=== PATIENT | female | born 1985 | race African-American/Black ===

== ENCOUNTER 2022-12-17 22:39 | Emergency (ER) | payer OTHER, SELFPAY ==
--- NOTE | ~2022-12-17 | XR_ITS ---
EXAMINATION: XR ankle LT min 3V DATE: 12/17/2022 23:23 INDICATION: Left ankle pain TECHNIQUE: Anteroposterior, lateral, mortise, and additional oblique view of the ankle were obtained. COMPARISON: None. FINDINGS: There is diffuse soft tissue swelling of ankle. Bone alignment is normal. There is no fract ure. Posterior and plantar calcaneal enthesophytes are noted. IMPRESSION: 1. Ankle soft tissue swelling without acute osseous abnormality. Reviewed, dictated and finalized at location A.
[2022-12-17 22:42] VITALS: BP 132/64; PULSE 85; RESP 14; TEMP 36.2; O2SAT 100
--- NOTE | 2022-12-17 22:59 | PC.NURSE ---
Pt resting comfortably in bed, denies any difficulty breathing or swallowing. Respirations even and unlabored. 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
--- NOTE | 2022-12-17 23:17 | ED.GENADULT ---
HPI - General Adult General Chief complaint: Allergic Reaction Stated complaint: allergic reaction Time Seen by Provider: 12/17/22 23:00 History of Present Illness HPI narrative: Patient 37-year-old female who presents the emergency department with chief complaint of allergic reaction and left ankle pain. Patient reports that recently she twisted her left ankle and has been continuing to have pain in the left ankle area. Patient reports that she is also had intermittent episodes of urticaria and this evening noticed that she started having swelling in her tongue after she fell asleep. Patient reports that she thinks her voice is a little off primarily because of the swelling in her tongue but reports she still able to swallow and has no shortness of breath. Related Data Allergies Allergy/AdvReac Type Severity Reaction Status Date / Time No Known Allergies Allergy Verified 12/17/22 22:40 Review of Systems Review of Systems: A 10 system review of systems was completed on the patient and is negative except for what is stated in the HPI. Nursing and ancillary documentation was reviewed. Exam Narrative: GENERAL: Well-appearing, well-nourished, and in no acute distress. HEAD: Normocephalic, atraumatic. EYES: PERRLA and EOMI. ENT: Nares clear, no rhinorrhea or epistaxis. Mucous membranes moist.no stridor NECK: Supple. CHEST: Clear to auscultation. No respiratory distress. HEART: Regular rate and rhythm. No murmur heard. Normal peripheral pulses. ABDOMEN: Soft, nontender, nondistended, normal active bowel sounds. EXTREMITIES: Normal range of motion. No edema. Tenderness to palpation of the left ankle SKIN: Warm, dry, no rash. NEURO: No focal deficits. Alert and oriented x3. PSYCH: Normal mood and affect. Course Vital Signs Vital signs: Vital Signs Temperature 36.2 C L 12/17/22 22:42 Pulse Rate 85 12/17/22 22:42 Respiratory Rate 14 12/17/22 22:42 Blood Pressure 132/64 12/17/22 22:42 Pulse Oximetry 100 12/17/22 22:42 Oxygen Delivery Room Air 12/17/22 22:42 Temperature 36.2 C L 12/17/22 22:42 Pulse Rate 85 12/17/22 22:42 Respiratory Rate 14 12/17/22 22:42 Blood Pressure 132/64 12/17/22 22:42 Pulse Oximetry 100 12/17/22 22:42 Oxygen Delivery Room Air 12/17/22 22:42 Medical Decision Making MDM Narrative Medical decision making narrative: Differential diagnosis includes allergic reaction, angioedema, ankle sprain. Plain film x-rays of the left ankle show no evidence of fracture The patient was treated with steroids Benadryl and Pepcid the patient will be put on a steroid pulse Vital Signs Vital Signs: Vital Signs Temperature 36.2 C L 12/17/22 22:42 Pulse Rate 85 12/17/22 22:42 Respiratory Rate 14 12/17/22 22:42 Blood Pressure 132/64 12/17/22 22:42 Pulse Oximetry 100 12/17/22 22:42 Oxygen Delivery Room Air 12/17/22 22:42 Temperature 36.2 C L 12/17/22 22:42 Pulse Rate 85 12/17/22 22:42 Respiratory Rate 14 12/17/22 22:42 Blood Pressure 132/64 12/17/22 22:42 Pulse Oximetry 100 12/17/22 22:42 Oxygen Delivery Room Air 12/17/22 22:42 Discharge Plan Discharge Clinical Impression: Allergic reaction, Left ankle sprain Patient Disposition: Home, Self-Care Condition: Stable Instructions: Antibiotic Form, Ankle Sprain (ED), Allergies (ED), General Allergic Reaction (ED) Prescriptions: New prednisone 20 mg tablet 40 mg PO DAILY 5 Days Qty: 10 0RF Follow-up/Referrals: Miky,JATINDER Kerns [Primary Care Provider] - Time of Disposition: 23:45
[2022-12-17] MEDS: predniSONE 20 MG TABLET 60 MG PO (23:24)
[2022-12-17] MEDS: diphenhydrAMINE HCl CAP 25 MG CAPSULE 50 MG PO (23:24)
[2022-12-17 23:59] VITALS: BP 112/69; PULSE 69; RESP 18; TEMP 36.6; O2SAT 99
== END 2022-12-18 | disposition home or self-care (01) ==
PROVIDERS: Emergency Provider Emergency Medicine; PCP Physician Assistant
DX: S93.402A Sprain of unspecified ligament of left ankle, initial encounter (principal); X50.0XXA Overexertion from strenuous movement or load, initial encounter; T78.40XA Allergy, unspecified, initial encounter; X58.XXXA Exposure to other specified factors, initial encounter
CPT/HCPCS: 73610; 99283; A9270; J7512

== ENCOUNTER 2025-09-03 05:55 | Emergency (ER) | payer OTHER, SELFPAY ==
--- OUTSIDE RECORDS SUMMARY | 2025-01-04 13:40 | XMS_ITS ---
Author Organization [facility] Address [address] [place] [address] Phone [phone] Care Team Providers Care Fireman Name Role Phone Jacqui Deluca Primary Care Provider [phone] Marifer KISERChristophemonica Abarca [phone] REASON FOR VISIT 3 Month Psych F/U & Med Refill Medications Medication SIG (Take, Route, Frequency, Duration) Notes Start Date End Date Diagnosis (ICD Code) Status hydrOXYzine HCl 50 MG Tablet 1/2 to 1 tablet as needed Orally twice a day; Duration: 30 days 08/31/2024 Bipolar affective disorder, depressed, severe, with psychotic behavior (ICD_10 - F31.5) Active Vraylar 1.5 MG Capsule 1 capsule Orally Once a day; Duration: 30 days Has been on Latuda, Abilify, Geodon, Zyprexa, Seroquel, Risperdal, Haldol. 08/30/2024 Bipolar affective disorder, depressed, severe, with psychotic behavior (ICD_10 - F31.5) Active traZODone HCl 100 MG Tablet 1/2 to 1 tablet at bedtime as needed Orally Once a day; Duration: 30 days Bipolar affective disorder, depressed, severe, with psychotic behavior (ICD_10 - F31.5) Active FLUoxetine HCl 40 MG Capsule 1 capsule Oral Once a day; Duration: 30 days Bipolar affective disorder, depressed, severe, with psychotic behavior (ICD_10 - F31.5) Active Vitamin D (Ergocalciferol) 1.25 MG (12855 UT) Capsule 1 capsule Oral once a week; Duration: 30 days Bipolar affective disorder, depressed, severe, with psychotic behavior (ICD_10 - F31.5) Active Meclizine HCl 25 MG Tablet Oral; Duration: 10 Days Active Fluticasone Propionate 50 MCG/ACT Suspension Nasal; Duration: 30 Days Active Sucralfate 1 GM Tablet Oral; Duration: 30 Days Active Pantoprazole Sodium 40 MG Tablet Delayed Release Oral; Duration: 28 Days Active Folic Acid 1 MG Tablet Oral; Duration: 28 Days Active amLODIPine Besylate 2.5 MG Tablet Oral; Duration: 28 Days Active Cetirizine HCl 10 MG Tablet Oral; Duration: 28 Days Active Amoxicillin 875 MG Tablet Oral; Duration: 10 Days Active Social History Sex Observation Social History Observation Description Sex Observation Female Encounters Date Time Type Facility Location Provider Diagnosis 01/04/2025 01:40 PM Office Visit [address] [address] Jacqui Deluca Bipolar affective disorder, depressed, severe, with psychotic behavior F31.5 Assessments Encounter Date Diagnosis (ICD Code) Assessment Notes Treat ment Notes Section Notes 01/04/2025 Bipolar affective disorder, depressed, severe, with psychotic behavior (ICD-10 - F31.5) Plan Of Treatment No Information Medical (General) History Medical History History ICD Code asthma Hemoglobin C (Blood disorder) GERD Hypertension Obesity Fatty liver Enlarged spleen Vertigo Surgical History Surgery Date(Month/Year) cholecystectomy 2024 Progress Notes * Franklin REYNOSODOB:[birth year] (40 yo F)Acc No.[id number]:01/04/2025 UNLOCKED PROGRESS NOTE Patient: Osorio CHANCE Franklin Provider: Liz Deluca DNP, PMHNP-BC, [employer] PERFORMER :1985 A ge:39 Y S ex:Female Date:01/04/2025 Address:[address] [place] [address] , [address] Subjective: * Chief Complaints: * 1 . 3 Month Psych F/U & Med Refill. * Screening: * * Medical History: * Medications: T aking Amoxicillin 875 MG Tablet Oral , Taking Cetirizine HCl 10 MG Tablet Oral , Taking amLODIPine Besylate 2.5 MG Tablet Oral , Taking Folic Acid 1 MG Tablet Oral , Taking Pantoprazole Sodium 40 MG Tablet Delayed Release Oral , Taking Sucralfate 1 GM Tablet Oral , Taking Fluticasone Propionate 50 MCG/ACT Suspension Nasal , Taking Meclizine HCl 25 MG Tablet Oral , Taking Vitamin D (Ergocalciferol) 1.25 MG (92939 UT) Capsule 1 capsule Oral once a week , Taking FLUoxetine HCl 40 MG Capsule 1 capsule Oral Once a day , Taking traZODone HCl 100 MG Tablet 1/2 to 1 tablet at bedtime as needed Orally Once a day , Taking Vraylar 1.5 MG Capsule 1 capsule Orally Once a day , Notes to Pharmacist: Has been on Latuda, Abilify, Geodon, Zyprexa, Seroquel, Risperdal, Haldol., Taking hydrOXYzine HCl 50 MG Tablet 1/2 to 1 tablet as needed Orally twice a day Objective: * Vitals: Assessment: * Assessment: 1. B ipolar affective disorder, depressed, severe, with psychotic behavior - F31.5 (Primary)? Plan: * Treatment: * * Electronic signature of Leticia Deluca on 09/03/2025 at 05:58 AM DATA ENTRY ASSISTANT Sign off status: Pending * Provider: Liz Deluca DNP, PMHNP-JONAH, TAMIA Date: 0 01/04/2025 Generated for Printing/Faxing/eTransmitting on: 11/04/2024 05:58 AM DATA ENTRY ASSISTANT
--- NOTE | ~2025-09-03 | XR_ITS ---
Examination: XR chest 2V Clinical History: shortness of breath, CP Comparison: None Technique: PA and Lateral Findings: Cardiomediastinal silhouette normal size and configuration. Lungs clear. No acute bony abnormality. IMPRESSION: 1. No acute cardiopulmonary findings. Reviewed, dictated and finalized at location R. Y LEVEL WEB DEVELOPER
--- NOTE | ~2025-09-03 | CT_ITS ---
CT HEAD NON-CONTRAST Clinical History: intractable new headache Comparison: None Technique: Unenhanced axial images skull base to vertex Coronal, sagittal reformats CT images acquired with automatic exposure control for dose reduction DLP: 605 mGy-cm Findings: Sulci, ventricles: Unremarkable. No intracerebral hemorrhage. No evidence acute territorial infarct. No mass effect, midline shift. Bony calvarium intact. Visualized paranasal sinuses: Clear. Mastoid air cells: Clear. IMPRESSION: 1. No acute intracranial findings. Reviewed, dictated and finalized at location R. E ADJUSTER
--- OUTSIDE RECORDS SUMMARY | 2025-09-03 02:00 | XMS_ITS | Encounter Summary ---
Author Organization [facility] Healthcare Address [address] [place] [address] Care Team Providers Care Stonemason Supervisor Name Role Phone Azul Bolaños Primary Care Provider Reason for Visit * Reason Comments Paranoia Encounter Details Date Type Department Care Team (Late st Contact Info) Description 09/03/2025 2:00 AM PROTOTYPE MACHINIST - 09/03/2025 3:32 AM PROTOTYPE MACHINIST Emergency [facility] Emergency Department [address] [place] [address] Feliciano Francois MD [address] [place] [address] Hallucinations (Primary Dx); Paranoia (HCC) Discharge Disposition: Discharge to home or self care Social History Tobacco Use Types Packs/Day Years Used Date Smoking Tobacco: Former Cigarettes Vaping Smokeless Tobacco: Never AUDIT-C Answer Date Recorded Frequency of Alcohol Consumption Not on file 10/01/2022 Q2: How many drinks containi ng alcohol do you have on a typical day when you are drinking? Patient does not drink Frequency of Binge Drinking Not on file 02/2023 Personal Safety Answer Date Recorded Have you ever been in or are you currently in a harmful physical or emotional relationship or is someone making you feel afraid or unsafe? Denies 09/03/2025 Comments No Sex and Gender Information Value Date Recorded Sex Assigned at Not on file Legal Sex Female 3:32 AM PROTOTYPE MACHINIST Gender Identity Not on file Sexual Orientation Not on file documented as of this encounter Last Filed Vital Signs Vital Sign Reading Time Taken Comments Blood Pressure 146/72 09/03/2025 3:32 AM PROTOTYPE MACHINIST Pulse 62 09/03/2025 3:32 AM PROTOTYPE MACHINIST Temperature 36.6 C (97.8 F) 09/03/2025 12:03 AM PROTOTYPE MACHINIST Respiratory Rate 20 09/03/2025 12:02 AM PROTOTYPE MACHINIST Oxygen Saturation 99% 09/03/2025 3:32 AM PROTOTYPE MACHINIST Inhaled Oxygen Concentration - - Weight 111.1 kg (245 lb) 09/03/2025 12:02 AM PROTOTYPE MACHINIST Height 165.1 cm (5' 5) 09/03/2025 12:02 AM PROTOTYPE MACHINIST Body Mass Index 40.77 09/03/2025 12:02 AM PROTOTYPE MACHINIST documented in this encounter Functional Status * Question Answer Date of Assessment Author Is the patient being treated today because it is known or suspected that they prepared, started, or tried to end their life? No 09/03/2025 12:02 AM Sree Verde RN * Question Answer Date of Assessment Author 1. In the past month, have you wished you were or that you could go to sleep and not wake up? No 09/03/2025 12:02 AM Sree Verde RN 2. In the past month, have you actually had any thoughts of killing yourself? No 09/03/2025 12:02 AM Sree Verde RN 6. Have you ever done anything, started to do anything, or prepared to do anything to end your life? No 09/03/2025 12:02 AM Ana Paula Flores RN * Suicide Risk Level Answer Date of Assessment Author No risk level 09/03/2025 12:02 AM Ana Paula Leslie RN * Question Answer Date of Assessment Author MAP (mmHg) 104 09/03/2025 12:02 AM PROTOTYPE MACHINIST Ana Paula Laboy RN documented as of this encounter Mental Status * Question Answer Entry Date Author Level of Consciousness Alert 12:20 AM Ana Paula Verde RN Orientation Oriented X4 (person, place, time, situation) 09/03/2025 12:20 AM Ana Paula Verde RN Other Neuro Symptoms Hallucinations 09/03/2025 12:20 AM PROTOTYPE MACHINIST Ana Paula Vuong RN documented in this encounter Discharge Instructions * Discharge Instructions* Feliciano Francois MD - 09/03/2025 3:28 AM PROTOTYPE MACHINIST Follow up with your psychiatrist. OTYPE MACHINIST * Attachments The following attachments cannot be sent through Care Everywhere. * Hallucinations (Discharge Care) (Tajik) documented in this encounter Medications at Time of Discharge albuterol HFA (PROVENTIL HFA,VENTOLIN HFA,PROAIR HFA) 90 mcg/actuation inhaler 09/13/2022 albuterol HFA (PROVENTIL HFA,VENTOLIN HFA,PROAIR HFA) 90 mcg/actuation inhaler Inhale 2 puffs every 4 (four) hours as needed 09/13/2022 amLODIPine (NORVASC) 5 mg tablet 08/25/2022 cetirizine (ZyrTEC) 10 mg tablet Take 1 tablet (10 mg total) by mouth daily 01/04/[address] (NexIUM) 40 mg capsule Take 1 capsule (40 mg total) by mouth daily before breakfast 30 capsule 03/06/2025 Flovent HFA 110 mcg/actuation inhaler 09/22/2022 FLUoxetine 10 mg capsule Take 1 tablet/capsule (10 mg total) by mouth daily 09/21/2023 folic acid (FOLVITE) 1 mg tablet Take 1,000 mcg by mouth daily 08/06/2021 LORazepam (ATIVAN) 0.5 mg tabletIndication s:Insomnia,anxie ty Take 1 tablet (0.5 mg total) by mouth every 6 (six) hours as needed for anxiety 20 tablet 10/06/2023 meclizine (ANTIVERT) 25 mg tablet Take 1 tablet (25 mg total) by mouth 3 (three) times a day as needed 08/16/[address] (PROTONIX) 40 mg EC tablet Take 1 tablet (40 mg total) by mouth 2 (two) times a day 05/04/2023 valACYclovir (VALTREX) 500 mg tablet 08/25/2022 documented as of this encounter Discharge Disposition Disposition Code Departure Means Destination Comment s Discharge to home or self care documented in this encounter ED Notes * Xochilt Colin PA - 09/03/2025 1:36 AM CST CHIEF COMPLAINT: Chief Complaint Patient presents with Paranoia HPI 2:09 AM Flaca Reynoso is a 40 y.o. female presenting to the ED c/o paranoia and hallucinations.Patient states she was recently started on new medication for treatment of her narcolepsy and has been experiencing auditory and visual hallucinations and paranoia. She was at secondary to these medications. Patient is fearful that he is voices or seeing negative things about herself. She denies homicidal or suicidal ideation. Patient also reports having intermittent left- sided chest pain for a couple of weeks. She reports an associated cough and intermittent shortness of breath with wheezing. She denies any shortness of breath at this time. She denies lower extremity edema. She denies any all eviating or exacerbating factors. History provided by patient PCP: Azul Bolaños PA PAST MEDICAL HISTORY Past Medical History: Diagnosis Date Anemia 2003 Anxiety 2004 Arthritis 2010 Bipolar disorder (HCC) 2004 Depression 2004 GERD (gastroesophageal reflux disease) 2010 Hypertension 2016 Low back pain 2017 Obesity 2005 Paranoid schizophrenia (HCC) PAST SURGICAL HISTORY Past Surgical History: Procedure Laterality Date SECTION COLONOSCOPY 2007 FAMILY HISTORY Family History Problem Relation Age of Onset COPD Mother Diabetes Mother Heart attack Mother Hypertension Mother Stroke Mother Alcohol abuse Father Mental illness Father MEDICATIONS GIVEN IN THE ED Medications - No data to display CURRENT HOME MEDICATIONS No current facility-administered medications for this encounter. Current Outpatient Medications: albuterol HFA (PROVENTIL HFA,VENTOLIN HFA,PROAIR HFA) 90 mcg/actuation inhaler, , Disp: , Rfl: albuterol HFA (PROVENTIL HFA,VENTOLIN HFA,PROAIR HFA) 90 mcg/actuation inhaler, Inhale 2 puffs every 4 (four) hours as needed, Disp: , Rfl: amLODIPine (NORVASC) 5 mg tablet, , Disp: , Rfl: cetirizine (ZyrTEC) 10 mg tablet, Take 1 tablet (10 mg total) by mouth daily, Disp: , Rfl: esomeprazole DR (NexIUM) 40 mg capsule, Take 1 capsule (40 mg total) by mouth daily before breakfast, Disp: 30 capsule, Rfl: 0 Flovent HFA 110 mcg/actuation inhaler, , Disp: , Rfl: FLUoxetine 10 mg capsule, Take 1 tablet/capsule (10 mg total) by mouth daily, Disp: , Rfl: folic acid (FOLVITE) 1 mg tablet, Take 1,000 mcg by mouth daily, Disp: , Rfl: LORazepam (ATIVAN) 0.5 mg tablet, Take 1 tablet (0.5 mg total) by mouth every 6 (six) hours as needed for anxiety, Disp: 20 tablet, Rfl: 0 meclizine (ANTIVERT) 25 mg tablet, Take 1 tablet (25 mg total) by mouth 3 (three) times a day as needed, Disp: , Rfl: pantoprazole DR (PROTONIX) 40 mg EC tablet, Take 1 tablet (40 mg total) by mouth 2 (two) times a day, Disp: , Rfl: valACYclovir (VALTREX) 500 mg tablet, , Disp: , Rfl: ALLERGIES Allergies Allergen Reactions Doxepin Hallucinations SI Aripiprazole Dizziness, Other (See comments) and Unknown Headache SOCIAL HISTORY Social History Tobacco Use Smoking status: Former Types: Cigarettes, Vaping Smokeless tobacco: Never Substance and Sexual Activity Drug use: Never Sexual activity: Not Currently Partners: Male control/protection: Abstinence, Condom Male Alcohol Use: Not At Risk (05/16/2025) Received from [facility] AUDIT-C Q1: How often do you have a drink containing alcohol?: Never Q2: How many drinks containing alcohol do you have on a typical day when you are drinking?: Patientdoes not drink Q3: How often do you have six or more drinks on one occasion?: Never PHYSICAL EXAM TRIAGE VITAL SIGNS: ED Triage Vitals Temp Pulse Resp BP SpO2 09/03/25 0003 09/03/25 0002 09/03/25 0002 09/03/25 0002 09/03/25 0002 36.6 ??C (97.8 ??F) 76 20 158/91 99 % Temp src Heart Rate Source Patient Position BP Location FiO2 (%) 09/03/25 0003 -- -- -- -- Temporal Height Height Method Weight Weight Method 09/03/25 0002 09/03/25 0002 09/03/25 0002 09/03/25 0002 1.651 m (5' 5) Estimated 111.1 kg (245 lb) Stated Physical Exam Vitals and nursing note reviewed. Constitutional: General: She is not in acute distress. Appearance: She is well-developed. HENT: Head: Normocephalic and atraumatic. Right Ear: External ear normal. Left Ear: External ear normal. Nose: Nose normal. Mouth/Throat: Mouth: Mucous membranes are moist. Eyes: Conjunctiva/sclera: Conjunctivae normal. Cardiovascular: Rate and Rhythm: Normal rate and regular rhythm. Pulmonary: Effort: Pulmonary effort is normal. No respiratory distress. Breath sounds: Normal breath sounds. Chest: Chest wall: Tenderness present. Musculoskeletal: General: Normal range of motion. Cervical back: Neck supple. Skin: General: Skin is warm and dry. Neurological: General: No focal deficit present. Mental Status: She is alert. Psychiatric: Mood and Affect: Mood normal. Behavior: Behavior normal. LABS Labs Reviewed CBC WITH AUTO DIFFERENTIAL - Abnormal Result Value WBC 8.66 Hgb 10.3 (*) Hct 28.9 (*) Plt 205 MPV 10.6 RBC 3.92 MCV 73.7 (*) MCH 26.3 (*) MCHC 35.6 RDW CV 17.1 (*) RDW SD 45.2 NRBC abs 0.03 (*) COMPREHENSIVE METABOLIC PANEL - Abnormal Sodium 138 Potassium, pl 3.2 (*) Chloride 102 CO2 26 Anion gap 10 BUN 9 Creatinine 0.79 Glucose 98 Calcium 9.2 Bilirubin, total 1.8 (*) Protein, pl 8.2 Albumin 4.4 Alk phos 107 ALT 22 AST 19 INFLUENZA A/B, RSV, AND COVID-19 PCR COVID-19 RNA Negative Influenza A RNA Negative Influenza B RNA Negative RSV RNA Negative Narrative: Is the Patient experiencing symptoms consistent with COVID?->Yes URINALYSIS AND REFLEX TO MICROSCOPIC AND CULTURE Color, ur Yellow Clarity, ur Clear Specific gravity, ur 1.009 pH, urine 6.0 Protein, ur ql Negative Glucose, ur ql Negative Ketones, ur Negative Bilirubin, ur Negative Blood, ur Negative Urobilinogen, ur <2.0 Nitrite, ur Negative Leukocyte esterase, ur Negative UA reflex comment Value: Reflex conditions for microscopic UA and culture not met. ACETAMINOPHEN LEVEL Acetaminophen <5 ETHANOL Ethanol <10 SALICYLATE LEVEL Salicylate <5.0 TROPONIN T HIGH-SENSITIVITY SERIES (BASELINE, 2HR, 4HR, 6HR) Trop T hs <6 DRUGS OF ABUSE SCREEN, URINE WITHOUT CONFIRMATION Amphetamine, ur Not Detected Barbiturates, ur Not Detected Benzodiazepines, ur Not Detected Cannabinoids, ur Not Detected Cocaine, ur Not Detected Fentanyl, Ur Not Detected Methadone, ur Not Detected Opiates, ur Not Detected Oxycodone, ur NOT DETECTED Phencyclidine, ur Not Detected Urine Creatinine 70 Narrative: Drug of Abuse screening is performed by immunoassay for medical purposes only. This is not to be used for Pain Management purposes. HCG, URINE, QUALITATIVE HCG, ur Negative THYROID FUNCTION CASCADE TSH 4.19 DIFFERENTIAL AUTO Neutrophil abs 4.96 Imm gran abs 0.02 Lymphocyte abs 3.09 Monocyte abs 0.53 Eosinophil abs 0.03 Basophil abs 0.03 Neutrophil pct 57.4 Imm gran pct 0.2 Lymphocyte pct 35.7 Monocyte pct 6.1 Eosinophil pct 0.3 Basophil pct 0.3 EGFR eGFR >90 RADIOLOGY No results found. ED COURSE/MEDICAL DECISION MAKING Differential diagnosis included but not limited to medication reaction, psychosis, paranoid schizophrenia, bipolar Patient's medical records were reviewed. ED Course as of 09/03/25208 Time: 09/03 125 Value: Hgb(!): 10.3 Comment: Chronic anemia By: Xochilt Colin PA Time: 09/03 202 Comment: Patient is medically clear for psychiatric evaluation By: Xochilt Colin PA Procedures FINAL IMPRESSION Hallucinations Paranoia (HCC) This examination was transcribed using the [employer] voice recognition system without human bank compliance officer. In an effort to expedite patient care, this report has not been adjusted for typographical, grammatical, and syntax by a trained medical office supervisor. Xochilt Colin PA 09/03/25 0209 OTYPE MACHINIST * Ana Paula Vuong RN - 09/03/2025 12:00 AM CST Pt arrives by EMS to triage for complaints of anxiety, paranoia, and feeling off since starting anew med for her Narcolepsy in July. Pt states she has auditory hallucinations for the last 5 days. Denies SI or HI OTYPE MACHINIST OTYPE MACHINIST documented in this encounter Miscellaneous Notes * ED Re-evaluation Note - Feliciano Francois MD - 09/03/2025 3:29 AM PROTOTYPE MACHINIST ED Re-evaluation Patient feeling better and does not want to wait for psych evaluation. She denies any suicidal or homicidal tendencies. Labs Reviewed CBC WITH AUTO DIFFERENTIAL - Abnormal Result Value WBC 8.66 Hgb 10.3 (*) Hct 28.9 (*) Plt 205 MPV 10.6 RBC 3.92 MCV 73.7 (*) MCH 26.3 (*) MCHC 35.6 RDW CV 17.1 (*) RDW SD 45.2 NRBC abs 0.03 (*) COMPREHENSIVE METABOLIC PANEL - Abnormal Sodium 138 Potassium, pl 3.2 (*) Chloride 102 CO2 26 Anion gap 10 BUN 9 Creatinine 0.79 Glucose 98 Calcium 9.2 Bilirubin, total 1.8 (*) Protein, pl 8.2 Albumin 4.4 Alk phos 107 ALT 22 AST 19 INFLUENZA A/B, RSV, AND COVID-19 PCR COVID-19 RNA Negative Influenza A RNA Negative Influenza B RNA Negative RSV RNA Negative Narrative: Is the Patient experiencing symptoms consistent with COVID?->Yes URINALYSIS AND REFLEX TO MICROSCOPIC AND CULTURE Color, ur Yellow Clarity, ur Clear Specific gravity, ur 1.009 pH, urine 6.0 Protein, ur ql Negative Glucose, ur ql Negative Ketones, ur Negative Bilirubin, ur Negative Blood, ur Negative Urobilinogen, ur <2.0 Nitrite, ur Negative Leukocyte esterase, ur Negative UA reflex comment Value: Reflex conditions for microscopic UA and culture not met. ACETAMINOPHEN LEVEL Acetaminophen <5 ETHANOL Ethanol <10 SALICYLATE LEVEL Salicylate <5.0 TROPONIN T HIGH-SENSITIVITY SERIES (BASELINE, 2HR, 4HR, 6HR) Trop T hs <6 DRUGS OF ABUSE SCREEN, URINE WITHOUT CONFIRMATION Amphetamine, ur Not Detected Barbiturates, ur Not Detected Benzodiazepines, ur Not Detected Cannabinoids, ur Not Detected Cocaine, ur Not Detected Fentanyl, Ur Not Detected Methadone, ur Not Detected Opiates, ur Not Detected Oxycodone, ur NOT DETECTED Phencyclidine, ur Not Detected Urine Creatinine 70 Narrative: Drug of Abuse screening is performed by immunoassay for medical purposes only. This is not to be used for Pain Management purposes. HCG, URINE, QUALITATIVE HCG, ur Negative THYROID FUNCTION CASCADE TSH 4.19 DIFFERENTIAL AUTO Neutrophil abs 4.96 Imm gran abs 0.02 Lymphocyte abs 3.09 Monocyte abs 0.53 Eosinophil abs 0.03 Basophil abs 0.03 Neutrophil pct 57.4 Imm gran pct 0.2 Lymphocyte pct 35.7 Monocyte pct 6.1 Eosinophil pct 0.3 Basophil pct 0.3 EGFR eGFR >90 Feliciano Francois MD 09/03/25 0329 OTYPE MACHINIST * ED Procedure Note - Feliciano Francois MD - 09/03/2025 12:12 AM CSTAssociated Order(s): ECG 12 lead Procedure ECG 12 lead Date/Time: 09/03/2025 12:12 AM Performed by: Feliciano Francois MD Authorized by: Feliciano Francois MD Rate: ECG rate: 64 ECG rate assessment: normal Rhythm: Rhythm: sinus rhythm Other findings: Other findings: LVH Interpretation: Interpretation: abnormal Comments: First-degree AV block Feliciano Francois MD 09/03/25 0012 OTYPE MACHINIST documented in this encounter Plan of Treatment Pending Results Name Type Priority Associated Diagnoses Date /Time ECG 12 lead ECG STAT 09/03/2025 12 :12 AM PROTOTYPE MACHINIST XR Chest 1 [facility] ED 1:26 AM PROTOTYPE MACHINIST Scheduled Orders Name Type Priority Associated Diagnoses Orde r Schedule XR Chest 1 Vw Portable Imaging ED On ce for 1 Occurrences starting 09/03/2025 until 09/03/2025 documented as of this encounter Procedures Procedure Name Priority Date/Time Associated Diagnosis Comments TROPONIN T HIGH-SENSITIVITY SERIES (BASELINE, 2HR, 4HR, 6HR) STAT 09/03/2025 12:26 AM PROTOTYPE MACHINIST INFLUENZA A/B, RSV, AND COVID-19 PCR STAT 09/03/2025 12:26 AM PROTOTYPE MACHINIST EGFR STAT 09/03/2025 12:26 AM PROTOTYPE MACHINIST DIFFERENTIAL AUTO STAT 09/03/2025 12: 26 AM PROTOTYPE MACHINIST THYROID FUNCTION CASCADE Add-On 09/03/2025 12:26 AM PROTOTYPE MACHINIST URINALYSIS AND REFLEX TO MICROSCOPIC AND CULTURE STAT 09/03/2025 12:26 AM PROTOTYPE MACHINIST CBC WITH AUTO DIFFERENTIAL STAT 09/03/2025 12:26 AM PROTOTYPE MACHINIST DRUGS OF ABUSE SCREEN, URINE WITHOUT CONFIRMATION STAT 09/03/2025 12:26 AM PROTOTYPE MACHINIST HCG, URINE, QUALITATIVE STAT 09/03/2025 12:26 AM PROTOTYPE MACHINIST ETHANOL STAT 09/03/2025 12:26 AM PROTOTYPE MACHINIST ACETAMINOPHEN LEVEL STAT 09/03/2025 1 2:26 AM PROTOTYPE MACHINIST SALICYLATE LEVEL STAT 09/03/2025 12:2 6 AM PROTOTYPE MACHINIST COMPREHENSIVE METABOLIC PANEL STAT 09/03/2025 12:26 AM PROTOTYPE MACHINIST ECG 12-LEAD STAT 09/03/2025 12:12 AM PROTOTYPE MACHINIST documented in this encounter Results * eGFR (09/03/2025 12:26 AM PROTOTYPE MACHINIST) eGFR >90 >=60 mL/min/1. 73 m2 Comment: Interpretive Data Reference Interval Normal >/= 90 mL/min/1.73m2 Mildly decreased* 60 - 89 mL/min/1.73m2 Mildly to moderately decreased 45 - 59 mL/min/1.73m2 Moderately to severely decreased 30 - 44 mL/min/1.73m2 Severely decreased 15 - 29 mL/min/1.73m2 Kidney Failure < 15 mL/min/1.73m2 *Relative to young adult level Estimated glomerular filtration rate is determined by the 2020 CKD-EPI equation recommended by the National Kidney Foundation (A Unifying Approach to GFR Estimation: Recommendations of the NKF-ASK Task Force on Reassessing the Inclusion of Race in Diagnosing Kidney Disease, JASN 2020). The CKD-EPI equation should not be used for patients with unstable renal function and has not been validated in children and those over 70. Current interpretive data was last reviewed 2021. Blood 09/03/2025 12:2 6 AM PROTOTYPE MACHINIST 09/03/2025 12:34 AM PROTOTYPE MACHINIST us Xochilt TOBIAS LAB BLOOD ORDERABLES Tiki paz Result [facility] ([place]) 1 [facility] Department [place] [address] * Differential, auto (09/03/2025 12:26 AM PROTOTYPE MACHINIST) Neutrophil abs 4.96 1.50 - 6.50 K/cumm Imm gran abs 0.02 0.00 - 0.10 K/cumm [facility] ([place]) Lymphocyte abs 3.09 0.80 - 3.30 K/cumm [facility] ([place]) Monocyte abs 0.53 0.20 - 0.80 K/cumm [facility] ([place]) Eosinophil abs 0.03 0.00 - 0.50 K/cumm [facility] ([place]) Basophil abs 0.03 0.00 - 0.10 K/cumm [facility] ([place]) Neutrophil pct 57.4 % [facility] ([place]) Comment: Interpretive Data Percent cell count reference ranges are not reported, since discordance with absolute values may lead to misinterpretation of CBC data. Current Interpretive Data was last revised on 2018. Imm gran pct 0.2 % [facility] ([place]) Comment: Interpretive Data Percent cell count reference ranges are not reported, since discordance with absolute values may lead to misinterpretation of CBC data. Current Interpretive Data was last revised on 2018. Lymphocyte pct 35.7 % [facility] ([place]) Comment: Interpretive Data Percent cell count reference ranges are not reported, since discordance with absolute values may lead to misinterpretation of CBC data. Current Interpretive Data was last revised on 2018. Monocyte pct 6.1 % [facility] ([place]) Comment: Interpretive Data Percent cell count reference ranges are not reported, since discordance with absolute values may lead to misinterpretation of CBC data. Current Interpretive Data was last revised on 2018. Eosinophil pct 0.3 % [facility] ([place]) Comment: Interpretive Data Percent cell count reference ranges are not reported, since discordance with absolute values may lead to misinterpretation of CBC data. Current Interpretive Data was last revised on 2018. Basophil pct 0.3 % [facility] ([place]) Comment: Interpretive Data Percent cell count reference ranges are not reported, since discordance with absolute values may lead to misinterpretation of CBC data. Current Interpretive Data was last revised on 2018. Blood 09/03/2025 12:2 6 AM PROTOTYPE MACHINIST 09/03/2025 12:34 AM PROTOTYPE MACHINIST Xochilt TOBIAS LAB BLOOD ORDERABLES Tiki l Result [facility] ([place]) 1 [facility] Department of Laboratories [place], [place] [id number] * Thyroid Function [place] (09/03/2025 12:26 AM PROTOTYPE MACHINIST) TSH 4.19 0.30 - 4.20 mcIUnit/mL Blood 09/03/2025 12:2 6 AM PROTOTYPE MACHINIST 09/03/2025 12:34 AM PROTOTYPE MACHINIST us Xochilt TOBIAS LAB BLOOD ORDERABLES Tiki l Result [facility] ([place]) 1 [facility] [place] [address] * hCG, urine, qualitative (09/03/2025 12:26 AM PROTOTYPE MACHINIST) HCG, ur Negative Negative Urine 09/03/2025 12:2 6 AM PROTOTYPE MACHINIST 09/03/2025 12:52 AM PROTOTYPE MACHINIST Xochilt TOBIAS LAB URINE ORDERABLES Tiki l Result Performing Organization Address [facility] Co de Phone Number [facility] ([place]) 1 [facility] [place] [address] * Urinalysis reflex to microscopic and culture Urine (09/03/2025 12:26 AM PROTOTYPE MACHINIST) Color, ur Yellow Yellow Clarity, ur Clear Clear [facility] ([place]) Specific gravity, ur 1.009 1.003 - 1.030 [facility] ([place]) pH, urine 6.0 [facility] ([place]) Comment: Interpretive Data U rine pH is affected by diet, medications, systemic acid-base disturbances, and renal tubular function. pH may affect urinary stone formation. For example, urine pH below 6.0 may help reduce the tendency for calcium phosphate stones and pH greater than 6.0 may reduce the tendency for uric acid stone formation. Source: [facility] [place] Current Interpretive Data was last revised on 2017 Protein, ur ql Negative Negative [facility] ([place]) Glucose, ur ql Negative Negative [facility] ([place]) Ketones, ur Negative Negative [facility] ([place]) Bilirubin, ur Negative Negative [facility] ([place]) Blood, ur Negative Negative [facility] ([place]) Urobilinogen, ur <2.0 <2.0 mg/dL [facility] ([place]) Nitrite, ur Negative Negative [facility] ([place]) Leukocyte esterase, ur Negative Negative [facility] ([place]) UA reflex comment Reflex conditions for microscopic UA and culture not met. [facility] ([place]) Urine 09/03/2025 12:2 6 AM PROTOTYPE MACHINIST 09/03/2025 12:52 AM PROTOTYPE MACHINIST Xochilt TOBIAS LAB MICROBIOLOGY - GENERA L ORDERABLES Final Result [facility] ([place]) 1 [facility] Department [place] [address] * Drugs of Abuse Screen, Urine without Confirmation (09/03/2025 12:26 AM PROTOTYPE MACHINIST) Amphetamine, ur Not Detected CutOff 500ng/mL Comment: Interpretive Data - Amphetamines: Samples containing greater than 500 ng/mL d-methamphetamine or other cross-reacting amphetamine compounds are reported as positive. Amphetamine immunoassays are subject to significant false positive rates due to cross-reactivity of non-amphetamine drugs. Confirmatory testing required for definitive results. Current Interpretive Data was last reviewed 2023. Barbiturates, ur Not Detected CutOff 200ng/mL [facility] ([place]) Comment: Interpretive Data - Barbiturates: Samples containing greater than 200 ng/mL secobarbital or other cross-reacting barbiturate compounds are reported as positive. False positive and false negative results are possible. Confirmatory testing required for definitive results. Current Interpretive Data was last reviewed 2023. Benzodiazepines, ur Not Detected CutOff 100ng/mL [facility] ([place]) Comment: Interpretive Data - Benzodiazepines: Samples containing greater than 100 ng/mL nordiazepam or other cross-reacting compounds are reported as positive. False positive and false negative results are possible. Confirmatory testing required for definitive results. Current Interpretive Data was last reviewed 2023. Cannabinoids, ur Not Detected CutOff 50 ng/mL [facility] ([facility]) Comment: Interpretive Data - Cannabinoids: Samples containing greater than 50 ng/mL delta-9 THC -COOH or other cross- reacting compounds are reported as positive. False positive and false negative results are possible. Confirmatory testing required for definitive results. Current Interpretive Data was last reviewed 2023. Cocaine, ur Not Detected CutOff 150ng/mL [facility] ([facility]) Comment: Interpretive Data - Cocaine: Samples containing greater than 150 ng/mL benzoylecgonine or other cross- reacting compounds are reported as positive. False positive and false negative results are possible. Confirmatory testing required for definitive results. Current Interpretive Data was last reviewed 2023. Fentanyl, Ur Not Detected CutOff 5 ng/mL [facility] ([place]) Comment: Interpretive Data - Fentanyl: Samples containing greater than 5 ng/mL norfentanyl, fentanyl, or other cross-reacting fentanyl compounds are reported as positive. False positive and false negative results are possible. Confirmatory testing required for definitive results. Current Interpretive Data was last reviewed 2023. Methadone, ur Not Detected CutOff 300ng/mL [facility] ([place]) Comment: Interpretive Data - Methadone: Samples containing greater than 300 ng/mL d,l-methadone or other cross-reacting compounds are reported as positive. False positive and false negative results are possible. Confirmatory testing required for definitive results. Current Interpretive Data was last reviewed 2023. Opiates, ur Not Detected CutOff 300ng/mL [facility] ([place]) Comment: Interpretive Data - Opiates: Samples containing greater than 300 ng/mL morphine or other cross-reacting compounds are reported as positive. False positive and false negative results are possible. Confirmatory testing required for definitive results. Current Interpretive Data was last reviewed 2023. Oxycodone, ur NOT DETECTED CutOff 100ng/mL [facility] ([place]) Comment: Interpretive Data - Oxycodone: Samples containing greater than 100 ng/mL oxycodone or other cross-reacting compounds are reported as positive. False positive and false negative results are possible. Confirmatory testing required for definitive results. Current Interpretive Data was last reviewed 2023. Phencyclidine, ur Not Detected CutOff 25 ng/mL [facility] ([place]) Comment: Interpretive Data - Phencyclidine: Samples containing greater than 25 ng/mL phencyclidine or other cross-reacting compounds are reported as positive. False positive and false negative results are possible. Confirmatory testing required for definitive results. Current Interpretive Data was last reviewed 2023. Urine Creatinine 70 mg/dL [facility] ([place]) Comment: Interpretive Data Urine Creatinine: < 10 mg/dL is extremely dilute = or > 10 but < 20 mg/dL is dilute = or > 20 mg/dL is normal Current Interpretive Data was last revised on 2017. Urine 09/03/2025 12:2 6 AM PROTOTYPE MACHINIST 09/03/2025 12:52 AM PROTOTYPE MACHINIST Narrative [facility] ([place]) - 09/03/2025 1:27 AM PROTOTYPE MACHINIST Drug of Abuse screening is performed by immunoassay for medical purposes only. This is not to be used for Pain Management purposes. [facility] URINE ORDERABLES Tiki l Result Performing Organization Address [facility] de Phone Number [facility] ([place]) [address] [place] [address] [place] [address] * Troponin T high-sensitivity series (baseline, 2hr, 4hr, 6hr) (09/03/2025 12:26 AM PROTOTYPE MACHINIST) Trop T hs <6 <=14 ng/L Comment: Interpretive Data For further hscTnT resources including the diagnostic algorithm and an aid in interpretation, copy and paste this link: https://nrl.testcatalog.org/show/hsTrop Current Interpretive Data last revised 2020. Blood 09/03/2025 12:2 6 AM PROTOTYPE MACHINIST 09/03/2025 12:34 AM PROTOTYPE MACHINIST [facility] BLOOD ORDERABLES Tiki l Result Performing Organization Address [facility] Co de Phone Number [facility] ([place]) [address] [facility] [place] [address] * Salicylate level (09/03/2025 12:26 AM PROTOTYPE MACHINIST) Salicylate <5.0 <=5.0 mg/dL Comment: Interpretive Data Toxic: 30 mg/dL or greater. Current interpretive data was last revised 2023. Blood 09/03/2025 12:2 6 AM PROTOTYPE MACHINIST 09/03/2025 12:34 AM PROTOTYPE MACHINIST [facility] BLOOD ORDERABLES Tiki l Result [facility] ReyesANDREWS) 1 [facility] [place] [address] * Influenza A/B, RSV, and COVID-19 PCR Nasopharyngeal (09/03/2025 12:26 AM PROTOTYPE MACHINIST) COVID-19 RNA Negative Negative Influenza A RNA Negative Negative [facility] ([place]) Influenza B RNA Negative Negative [facility] ([place]) RSV RNA Negative Negative [facility] ([place]) Comment: Interpretive data: Testing performed by [facility]. This test is performed using the [employer] Xpert Xpress CoV-2/Flu/RSV plus assay. This is a multiplex, real- time reverse transcriptase PCR assay intended for the qualitative detection of nucleic acid from SARS-CoV-2, influenza A, influenza B, and respiratory syncytial virus. This assay has been cleared by the [place] Food and Drug administration. The performance characteristics have been verified by the [facility]. Results must be considered in the clinical context, and a negative result does not rule out infection. Interpretive Data last revised 2023 Nasopharyngeal 09/03/2025 12 :26 AM PROTOTYPE MACHINIST 09/03/2025 12:34 AM PROTOTYPE MACHINIST Narrative [facility] ([place]) - 09/03/2025 1:39 AM PROTOTYPE MACHINIST Is the Patient experiencing symptoms consistent with COVID?->Yes [facility] MICROBIOLOGY - GENERA L ORDERABLES Final Result [facility] ([place]) [address] [facility] [place] [address] * Ethanol (09/03/2025 12:26 AM PROTOTYPE MACHINIST) Ethanol <10 <=10 mg/dL Comment: Interpretive Data Legal limit of intoxication > or = 80 mg/dL Levels > or = 400 mg/dL are potentially TOXIC. Current interpretive data was last revised on 2018. Blood 09/03/2025 12:2 6 AM PROTOTYPE MACHINIST 09/03/2025 12:34 AM PROTOTYPE MACHINIST [facility] BLOOD ORDERABLES Tiki l Result [facility] ([place]) [address] [facility] [place] [address] * Acetaminophen level (09/03/2025 12:26 AM PROTOTYPE MACHINIST) Acetaminophen <5 <=5 mcg/mL Comment: Markedly elevated levels of Acetaminophen and it's metabolites may lead to false low test results for cholesterol, HDL, triglycerides and uric acid with the manufacturers test methods used by our lab. Interpretive Data Significant hepatic injury may occur and treatment with n-acetyl cysteine is generally recommended if the acetaminophen level exceeds: 150 mcg/mL at 4 hours after ingestion 75 mcg/mL at 8 hours after ingestion 38 mcg/mL at 12 hours after ingestion 19 mcg/mL at 16 hours after ingestion Consult toxicology or poison control ([phone]) for unknown ingestion time. Current interpretive data was last revised 2023. Blood 09/03/2025 12:2 6 AM PROTOTYPE MACHINIST 09/03/2025 12:34 AM PROTOTYPE MACHINIST [facility] BLOOD ORDERABLES Tiki l Result Performing Organization Address City/[facility]/ZIP Co de Phone Number [facility] ([place]) [address] [facility] [place] [address] * (ABNORMAL) Comprehensive metabolic panel (09/03/2025 12:26 AM PROTOTYPE MACHINIST) Sodium 138 135 - 145 mmol/L Potassium, pl 3.2(L) 3.3 - 4.9 mmol/L [facility] ([place]) Chloride 102 97 - 110 mmol/L [facility] ([place]) CO2 26 22 - 32 mmol/L [facility] ([place]) Anion gap 10 2 - 15 mmol/L [facility] ([place]) BUN 9 6 - 25 mg/dL [facility] ([place]) Creatinine 0.79 0.60 - 1.10 mg/dL [facility] ([place]) Glucose 98 70 - 199 mg/dL [facility] ([place]) Comment: Interpretive Data Fasting glucose >/= 126 mg/dl is diagnostic for diabetes. Fasting is defined as no caloric intake for at least 8 hours. Fasting glucose between 100 mg/dl to 125 mg/dl is diagnostic of prediabetes. In a patient with classic symptoms of hyperglycemia or hyperglycemic crisis, a random glucose >/= 200 mg/dl is diagnostic for diabetes. In the absence of unequivocal hyperglycemia, results should be confirmed by repeat testing. The classification and Diagnosis of Diabetes Diabetes Care 202; 46: S19-S40. Current interpretive data was last revised 2022. Calcium 9.2 8.5 - 10.3 mg/dL [facility] ([place]) Bilirubin, total 1.8(H) 0.1 - 1.2 mg/dL [facility] ([place]) Protein, pl 8.2 6.5 - 8.5 g/dL [facility] ([place]) Albumin 4.4 3.5 - 5.0 g/dL [facility] ([place]) Alk phos 107 40 - 130 Units/L [facility] ([place]) ALT 22 7 - 45 Units/L [facility] ([place]) AST 19 10 - 45 Units/L [facility] ([place]) Blood 09/03/2025 12:2 6 AM PROTOTYPE MACHINIST 09/03/2025 12:34 AM PROTOTYPE MACHINIST us [facility] BLOOD ORDERABLES Tiki paz Result [facility] ([place]) 1 [facility] [place] [address] * (ABNORMAL) CBC with auto differential (09/03/2025 12:26 AM PROTOTYPE MACHINIST) WBC 8.66 3.80 - 9.90 K/cumm Hgb 10.3(L) 11.9 - 15.5 g/dL [facility] ([place]) Hct 28.9(L) 35.6 - 45.5 % [facility] ([place]) Plt 205 150 - 400 K/cumm [facility] ([place]) MPV 10.6 9.1 - 12.3 fL [facility] ([place]) RBC 3.92 3.90 - 5.20 M/cumm [facility] ([place]) MCV 73.7(L) 81.3 - 96.4 fL [facility] ([place]) MCH 26.3(L) 27.1 - 33.3 pg [facility] ([place]) MCHC 35.6 32.3 - 35.7 g/dL [facility] ([place]) RDW CV 17.1(H) 11.1 - 14.9 % [facility] ([place]) RDW SD 45.2 35.7 - 48.1 fL [facility] ([place]) NRBC abs 0.03(H) 0.00 - 0.01 K/cumm [facility] ([place]) Blood 09/03/2025 12:2 6 AM PROTOTYPE MACHINIST 09/03/2025 12:34 AM PROTOTYPE MACHINIST [facility] BLOOD ORDERABLES Tiki paz Result [facility] ([place]) 1 [facility] [place] [address] documented in this encounter Visit Diagnoses Diagnosis Hallucinations- Primary Paranoia (HCC) Delusional disorder documented in this encounter Administered Medications Inactive Administered Medications - up to 3 most recent administrations Medication Order MAR Action Action Date Dose Rate Site meclizine (ANTIVERT) tablet 25 mg 25 mg, oral, Once, On Tue09/03/25 at 0221, For 1 dose Given 09/03/2025 2:24 AM PROTOTYPE MACHINIST 25 mg documented in this encounter Active and Recently Administered Medications Times are shown in PROTOTYPE MACHINIST. Scheduled Medication Order 09/01/2025 09/02/2025 09/03/2025 meclizine (ANTIVERT) tablet 25 mg (COMPLETED) 25 mg, oral, Once, On Tue09/03/25 at 0221, For 1 dose 0224 (Given - Provid er: Ana Paula Vuong RN) documented in this encounter Orders Medications Ordered That Gume ht Not Have Been Administered Count Last Ordered Date First Ordered Date meclizine (ANTIVERT) tablet 25 mg 1 025 Nursing Count Last Ordered Date First Orde red Date CARDIO RESPIRATORY MONITORING 1 09/03/2025 CONTINUOUS PULSE OXIMETRY 1 09/03/2025 MISCELLANEOUS NURSING CARE ORDER (SPECIFY) 1 09/03/2025 Consult Count Last Ordered Date First Orde red Date [facility] 1 025 IV Count Last Ordered Date First Orde red Date SALINE LOCK IV 1 09/03/2025 documented in this encounter Care Teams Stonemason Supervisor Relationship Specialty Start Date End Date Azul Bolaños PA [address] [place] [address] PCP - General 11/24/18 documented as of this encounter
--- OUTSIDE RECORDS SUMMARY | 2025-09-03 05:58 | XMS_ITS | Clinical Summary ---
Author Organization [facility] Address [address] [place] [address] Care Team Providers Care Bird Cage Assembler Name Role Phone Azul Bolaños Primary Care Provider + [phone] Allergies Active Allergy Reactions Criticality Noted Date Comments Aripiprazole Dizziness,Other (See comments),Unknown Low 08/31/2024 Headache Doxepin Hallucinations Medium 03/15/2025 SI Medications valACYclovir (VALTREX) 500 mg tablet 2 Active folic acid (FOLVITE) 1 mg tablet Take 1,000 mcg by mouth daily 1 Active Flovent HFA 110 mcg/actuation inhaler 2 Active amLODIPine (NORVASC) 5 mg tablet 2 Active albuterol HFA (PROVENTIL HFA,VENTOLIN HFA,PROAIR HFA) 90 mcg/actuation inhaler 2 Active albuterol HFA (PROVENTIL HFA,VENTOLIN HFA,PROAIR HFA) 90 mcg/actuation inhaler Inhale 2 puffs every 4 (four) hours as needed 2 Active cetirizine (ZyrTEC) 10 mg tablet Take 1 tablet (10 mg total) by mouth daily 3 Active meclizine (ANTIVERT) 25 mg tablet Take 1 tablet (25 mg total) by mouth 3 (three) times a day as needed [address] (PROTONIX) 40 mg EC tablet Take 1 tablet (40 mg total) by mouth 2 (two) times a day 3 Active FLUoxetine 10 mg capsule Take 1 tablet/capsule (10 mg total) by mouth daily 3 Active LORazepam (ATIVAN) 0.5 mg tabletIndicatio ns:Insomnia,anx iety Take 1 tablet (0.5 mg total) by mouth every 6 (six) hours as needed for anxiety 20 tablet [address] (NexIUM) 40 mg capsule Take 1 capsule (40 mg total) by mouth daily before breakfast 30 capsule 5 03/06/20 26 Active Active Problems Problem Noted Date Diagnosed Date Tinnitus, right ear 03/06/2025 Assessment & Plan (03/06/2025 11:16 AM CDT): Hearing test on Tuesday Continue to work with Dentist BMI 38.0-38.9,adult 10/01/2022 Encounters Date Type Department Care Team Description 09/03/2025 2:00 AM SPECIALTY THERAPIST - 09/03/2025 3:32 AM SPECIALTY THERAPIST Emergency [facility] Emergency Department [address] [place] [address] Feliciano Francois MD Hallucinations (Primary Dx); Paranoia (HCC) Discharge Disposition: Discharge to home or self care 07/26/2025 12:46 AM CDT - 07/26/2025 12:51 AM CDT Emergency [facility] Emergency Department [address] [place] [address] Michael Childs MD Pruritus (Primary Dx) Discharge Disposition: Discharge to home or self care from Last 3 Months Surgical History Surgery Date Site/Laterality Comments SECTION COLONOSCOPY 2007 Medical History Medical History Date Comments Paranoid schizophrenia (HCC) Anemia 2003 Anxiety 2004 Arthritis 2010 Bipolar disorder 2004 Depression 2004 GERD (gastroesophageal reflux disease) 2010 Hypertension 2016 Low back pain 2017 Obesity 2005 Family History Medical History Relation Name Comments Alcohol abuse Father Jaspal Reynoso Mental illness Father Jaspal Reynoso COPD Mother Monisha Esposito Diabetes Mother Monisha Esposito Heart attack Mother Monisha Esposito Hypertension Mother Monisha Esposito Stroke Mother Monisha Esposito Relation Name Status Comments Father Jaspal Reynoso Mother Monisha Esposito Social History Tobacco Use Types Packs/Day Years Used Date Smoking Tobacco: Former Cigarettes Vaping Smokeless Tobacco: Never Tobacco Cessation:Counseling Given: Not Answered AUDIT-C Answer Date Recorded Frequency of Alcohol [...] on file Legal Sex Female 3:32 AM SPECIALTY THERAPIST Gender Identity Not on file Sexual Orientation Not on file Obstetrics History Para Term AB IAB SAB Ectopic Multiple Livin g Live Births 2 1 Date Outcome GA Total Labor Labor/2nd/3rd Weight Sex Type Anes PTL Purnima A1 A5 Name Clin Para Last Filed Vital Signs Vital Sign Reading Time Taken Comments Blood Pressure 146/72 09/03/2025 3:32 AM SPECIALTY THERAPIST Pulse 62 09/03/2025 3:32 AM SPECIALTY THERAPIST Temperature 36.6 C (97.8 F) 09/03/2025 12:03 AM SPECIALTY THERAPIST Respiratory Rate 20 09/03/2025 12:02 AM SPECIALTY THERAPIST Oxygen Saturation 99% 09/03/2025 3:32 AM SPECIALTY THERAPIST Inhaled Oxygen Concentration - - Weight 111.1 kg (245 lb) 09/03/2025 12:02 AM SPECIALTY THERAPIST Height 165.1 cm (5' 5) 09/03/2025 12:02 AM SPECIALTY THERAPIST Body Mass Index 40.77 09/03/2025 12:02 AM SPECIALTY THERAPIST Plan of Treatment Health Maintenance Due Date Last Done Comments Cervical Cancer Screening 1984 Depression Screening 1984 Hepatitis C Screening 1984 Varicella Vaccines (1 of 2 - 13+ 2-dose series) 1997 DTaP/Tdap/Td Vaccine (1 - Tdap) 01/16/2000 0 Regular Well Visit/Exam 18-64 2002 HPV Vaccines (1 - 3-dose SCD M series) 2011 Pneumococcal vaccine <65 (3 of 3 - PCV20 or PCV21) 06/13/2023 05/07/2021, 06/13/2018 Covid-19 Vaccine (3 - 2025-2 6 season) 2025 07/17/2021, 05/28/2021 Breast Cancer Screening-Mammogram 11/22/2025 11/22/2024, 11/22/2024, 03/09/2019, Additional history exists Hepatitis B Screening Completed 01/15/2000 Influenza Vaccine Completed 07/01/2025, , 09/13/2022, Additional history exists Procedures Procedure Name Priority Date/Time Associated Diagnosis Comments EGFR STAT 09/03/2025 12:26 AM SPECIALTY THERAPIST DIFFERENTIAL AUTO STAT 09/03/2025 12: 26 AM SPECIALTY THERAPIST THYROID FUNCTION CASCADE Add-On 09/03/2025 12:26 AM SPECIALTY THERAPIST HCG, URINE, QUALITATIVE STAT 09/03/2025 12:26 AM SPECIALTY THERAPIST DRUGS OF ABUSE SCREEN, URINE WITHOUT CONFIRMATION STAT 09/03/2025 12:26 AM SPECIALTY THERAPIST TROPONIN T HIGH-SENSITIVITY SERIES (BASELINE, 2HR, 4HR, 6HR) STAT 09/03/2025 12:26 AM SPECIALTY THERAPIST SALICYLATE LEVEL STAT 09/03/2025 12:2 6 AM SPECIALTY THERAPIST ETHANOL STAT 09/03/2025 12:26 AM SPECIALTY THERAPIST ACETAMINOPHEN LEVEL STAT 09/03/2025 1 2:26 AM SPECIALTY THERAPIST COMPREHENSIVE METABOLIC PANEL STAT 09/03/2025 12:26 AM SPECIALTY THERAPIST CBC WITH AUTO DIFFERENTIAL STAT 09/03/2025 12:26 AM SPECIALTY THERAPIST URINALYSIS AND REFLEX TO MICROSCOPIC AND CULTURE STAT 09/03/2025 12:26 AM SPECIALTY THERAPIST INFLUENZA A/B, RSV, AND COVID-19 PCR STAT 09/03/2025 12:26 AM SPECIALTY THERAPIST ECG 12-LEAD STAT 09/03/2025 12:12 AM SPECIALTY THERAPIST from Last 3 Months Results * Troponin T high-sensitivity series (baseline, 2hr, 4hr, 6hr) (09/03/2025 12:26 AM SPECIALTY THERAPIST) Trop T hs <6 <=14 ng/L Comment: Interpretive Data For further hscTnT resources including the diagnostic algorithm and an aid in interpretation, copy and paste this link: https://nrl.testcatalog.org/show/hsTrop Current Interpretive Data last revised 2020. Blood 09/03/2025 12:2 6 AM SPECIALTY THERAPIST 09/03/2025 12:34 AM SPECIALTY THERAPIST [facility] BLOOD ORDERABLES Tiki paz Result [facility]) 1 [facility] [place] [address] * Influenza A/B, RSV, and COVID-19 PCR Nasopharyngeal (09/03/2025 12:26 AM SPECIALTY THERAPIST) Pathologist [facility] COVID-19 RNA Negative Negative Influenza A RNA Negative Negative [facility] ([place]) Influenza B RNA Negative Negative [facility] ([place]) RSV RNA Negative Negative [facility] ([place]) Comment: Interpretive data: Testing performed by [facility]. This test is performed using the Drobo Xpert Xpress CoV-2/Flu/RSV plus assay. This is a multiplex, real- time reverse transcriptase PCR assay intended for the qualitative detection of nucleic acid from SARS-CoV-2, influenza A, influenza B, and respiratory syncytial virus. This assay has been cleared by the [place] Food and Drug administration. The performance characteristics have been verified by the [facility]. Results must be considered in the clinical context, and a negative result does not rule out infection. Interpretive Data last revised 2023 Nasopharyngeal 09/03/2025 12 :26 AM SPECIALTY THERAPIST 09/03/2025 12:34 AM SPECIALTY THERAPIST Narrative [facility] - 09/03/2025 1:39 AM SPECIALTY THERAPIST Is the Patient experiencing symptoms consistent with COVID?->Yes [facility] MICROBIOLOGY - GENERA L ORDERABLES Final Result Performing Organization Address [facility] Co de Phone Number [facility]) 1 [facility] [place] [address] * eGFR (09/03/2025 12:26 AM SPECIALTY THERAPIST) Pathologist [facility] eGFR >90 >=60 mL/min/1. 73 m2 Comment: [...] reviewed 2021. Blood 09/03/2025 12:2 6 AM SPECIALTY THERAPIST 09/03/2025 12:34 AM SPECIALTY THERAPIST [facility] BLOOD ORDERABLES Tiki l Result [facility] ([place]) 1 [facility] Department [place] [employer] [place] [address] * Differential, auto (09/03/2025 12:26 AM SPECIALTY THERAPIST) Pathologist [facility] Neutrophil abs 4.96 1.50 - 6.50 K/cumm Imm gran abs 0.02 0.00 - 0.10 K/cumm [facility] ([place]) Lymphocyte abs 3.09 0.80 - 3.30 K/cumm [facility] ([place]) Monocyte abs 0.53 0.20 - 0.80 K/cumm [facility] ([place]) Eosinophil abs 0.03 0.00 - 0.50 K/cumm [facility] ([place]) Basophil abs 0.03 0.00 - 0.10 K/cumm [facility] ([place]) Neutrophil pct 57.4 % [facility] ([place]) Comment: Interpretive [...] on 2018. Blood 09/03/2025 12:2 6 AM SPECIALTY THERAPIST 09/03/2025 12:34 AM SPECIALTY THERAPIST [facility] BLOOD ORDERABLES Tiki paz Result [facility] ([place]) 1 [facility] [place] [address] * Thyroid Function Drew (09/03/2025 12:26 AM SPECIALTY THERAPIST) TSH 4.19 0.30 - 4.20 mcIUnit/mL Blood 09/03/2025 12:2 6 AM SPECIALTY THERAPIST 09/03/2025 12:34 AM SPECIALTY THERAPIST [facility] BLOOD ORDERABLES Tiki l Result [facility] ([place]) 1 [facility] [place] [address] * Urinalysis reflex to microscopic and culture Urine (09/03/2025 12:26 AM SPECIALTY THERAPIST) Color, ur Yellow Yellow Clarity, ur Clear [...] tendency for uric acid stone formation. Source: [facility] [employer] Current Interpretive Data was last revised on [...] [facility] ([place]) Urine 09/03/2025 12:2 6 AM SPECIALTY THERAPIST 09/03/2025 12:52 AM SPECIALTY THERAPIST [facility] MICROBIOLOGY - GENERA L ORDERABLES Final Result [facility] ([place]) 1 [facility] [place] [address] * (ABNORMAL) CBC with auto differential (09/03/2025 12:26 AM SPECIALTY THERAPIST) WBC 8.66 3.80 - 9.90 K/cumm Hgb 10.3(L) 11.9 - 15.5 g/dL [facility] ([place]) Hct 28.9(L) 35.6 - 45.5 % [facility] ([place]) Plt 205 150 - 400 K/cumm [facility] ([place]) MPV 10.6 9.1 - 12.3 fL [facility] ([place]) RBC 3.92 3.90 - 5.20 M/cumm [facility] ([place]) MCV 73.7(L) 81.3 - 96.4 fL [facility] ([place]) MCH 26.3(L) 27.1 - 33.3 pg [facility] ([place]) MCHC 35.6 32.3 - 35.7 g/dL [facility] ([place]) RDW CV 17.1(H) 11.1 - 14.9 % [facility] ([place]) RDW SD 45.2 35.7 - 48.1 fL [facility] ([place]) NRBC abs 0.03(H) 0.00 - 0.01 K/cumm [facility] ([place]) Blood 09/03/2025 12:2 6 AM SPECIALTY THERAPIST 09/03/2025 12:34 AM SPECIALTY THERAPIST [facility] BLOOD ORDERABLES Tiki l Result Performing Organization Address City/[facility]/ZIP Co de Phone Number [facility] ([place]) 1 [facility] [place] [address] * Drugs of Abuse Screen, Urine without Confirmation (09/03/2025 12:26 AM SPECIALTY THERAPIST) Amphetamine, ur Not Detected CutOff 500ng/mL Comment: Interpretive Data - Amphetamines: Samples containing greater than 500 ng/mL d-methamphetamine or other cross-reacting amphetamine compounds are reported as positive. Amphetamine immunoassays are subject to significant false positive rates due to cross-reactivity of non-amphetamine drugs. Confirmatory testing required for definitive results. Current Interpretive Data was last reviewed 2023. Barbiturates, ur Not Detected CutOff 200ng/mL [facility] ([place]) Comment: Interpretive Data - Barbiturates: Samples containing greater than 200 ng/mL secobarbital or other cross-reacting barbiturate compounds are reported as positive. False positive and false negative results are possible. Confirmatory testing required for definitive results. Current Interpretive Data was last reviewed 2023. Benzodiazepines, ur Not Detected CutOff 100ng/mL [facility] ([place]) Comment: Interpretive Data - Benzodiazepines: Samples containing greater than 100 ng/mL nordiazepam or other cross-reacting compounds are reported as positive. False positive and false negative results are possible. Confirmatory testing required for definitive results. Current Interpretive Data was last reviewed 2023. Cannabinoids, ur Not Detected CutOff 50 ng/mL [facility] ([place]) Comment: Interpretive Data - Cannabinoids: Samples containing greater than 50 ng/mL delta-9 THC -COOH or other cross- reacting compounds are reported as positive. False positive and false negative results are possible. Confirmatory testing required for definitive results. Current Interpretive Data was last reviewed 2023. Cocaine, ur Not Detected CutOff 150ng/mL [facility] ([place]) Comment: Interpretive Data - Cocaine: [...] 2023. Methadone, ur Not Detected CutOff 300ng/mL [facility] ([place]) Comment: Interpretive Data - Methadone: Samples containing greater than 300 ng/mL d,l-methadone or other cross-reacting compounds are reported as positive. False positive and false negative results are possible. Confirmatory testing required for definitive results. Current Interpretive Data was last reviewed 2023. Opiates, ur Not Detected CutOff 300ng/mL [facility] ([place]) Comment: Interpretive Data - Opiates: Samples containing greater than 300 ng/mL morphine or other cross-reacting compounds are reported as positive. False positive and false negative results are possible. Confirmatory testing required for definitive results. Current Interpretive Data was last reviewed 2023. Oxycodone, ur NOT DETECTED CutOff 100ng/mL [facility] ([place]) Comment: Interpretive Data - Oxycodone: Samples containing greater than 100 ng/mL oxycodone or other cross-reacting compounds are reported as positive. False positive and false negative results are possible. Confirmatory testing required for definitive results. Current Interpretive Data was last reviewed 2023. Phencyclidine, ur Not Detected CutOff 25 ng/mL [facility] ([place]) Comment: Interpretive Data - Phencyclidine: Samples containing greater than 25 ng/mL phencyclidine or other cross-reacting compounds are reported as positive. False positive and false negative results are possible. Confirmatory testing required for definitive results. Current Interpretive Data was last reviewed 2023. Urine Creatinine 70 mg/dL [facility] ([place]) Comment: Interpretive Data Urine Creatinine: < 10 mg/dL is extremely dilute = or > 10 but < 20 mg/dL is dilute = or > 20 mg/dL is normal Current Interpretive Data was last revised on 2017. Urine 09/03/2025 12:2 6 AM SPECIALTY THERAPIST 09/03/2025 12:52 AM SPECIALTY THERAPIST Narrative [facility] ([place]) - 09/03/2025 1:27 AM SPECIALTY THERAPIST Drug of Abuse screening is performed by immunoassay for medical purposes only. This is not to be used for Pain Management purposes. us [facility] URINE ORDERABLES Tiki l Result [facility] ([place]) 1 [facility] [place] [address] * hCG, urine, qualitative (09/03/2025 12:26 AM SPECIALTY THERAPIST) HCG, ur Negative Negative Urine 09/03/2025 12:2 6 AM SPECIALTY THERAPIST 09/03/2025 12:52 AM SPECIALTY THERAPIST [facility] URINE ORDERABLES Tiki l Result Performing Organization Address [facility] Co de Phone Number [facility] ([place]) 1 [facility] [place] [address] * Ethanol (09/03/2025 12:26 AM SPECIALTY THERAPIST) Ethanol <10 <=10 mg/dL Comment: Interpretive Data Legal limit of intoxication > or = 80 mg/dL Levels > or = 400 mg/dL are potentially TOXIC. Current interpretive data was last revised on 2018. Blood 09/03/2025 12:2 6 AM SPECIALTY THERAPIST 09/03/2025 12:34 AM SPECIALTY THERAPIST [facility] BLOOD ORDERABLES Tiki l Result Performing Organization Address [facility] Co de Phone Number [facility] ([place]) 1 [facility] [place] [address] * Acetaminophen level (09/03/2025 12:26 AM SPECIALTY THERAPIST) Acetaminophen <5 <=5 mcg/mL Comment: Markedly elevated [...] after ingestion Consult toxicology or poison control ([phone]) for unknown ingestion time. Current interpretive data was last revised 2023. Blood 09/03/2025 12:2 6 AM SPECIALTY THERAPIST 09/03/2025 12:34 AM SPECIALTY THERAPIST [facility] BLOOD ORDERABLES Tiki l Result Performing Organization Address City/[facility] Co de Phone Number [facility] ([place]) 1 [facility] [place] [address] * Salicylate level (09/03/2025 12:26 AM SPECIALTY THERAPIST) Salicylate <5.0 <=5.0 mg/dL Comment: Interpretive Data Toxic: 30 mg/dL or greater. Current interpretive data was last revised 2023. Blood 09/03/2025 12:2 6 AM SPECIALTY THERAPIST 09/03/2025 12:34 AM SPECIALTY THERAPIST [facility] BLOOD ORDERABLES Tiki l Result Performing Organization Address [facility] Co de Phone Number [facility] ([place]) 1 [facility] [place] [address] * (ABNORMAL) Comprehensive metabolic panel (09/03/2025 12:26 AM SPECIALTY THERAPIST) Sodium 138 135 - 145 mmol/L Potassium, pl 3.2(L) 3.3 - 4.9 mmol/L [facility] ([place]) Chloride 102 97 - 110 mmol/L [facility] ([place]) CO2 26 22 - 32 mmol/L [facility] ([place]) Anion gap 10 2 - 15 mmol/L [facility] ([place]) BUN 9 6 - 25 mg/dL [facility] ([place]) Creatinine 0.79 0.60 - 1.10 mg/dL [facility] ([place]) Glucose 98 70 - 199 mg/dL [facility] ([place]) Comment: Interpretive Data Fasting glucose >/= [...] classification and Diagnosis of Diabetes Diabetes Care 2021; 46: S19-S40. Current interpretive data was last [...] [facility] ([place]) Blood 09/03/2025 12:2 6 AM SPECIALTY THERAPIST 09/03/2025 12:34 AM SPECIALTY THERAPIST [facility] BLOOD ORDERABLES Tiki paz Result [facility] ([place]) 1 [facility] [place] [address] from Last [address] [place] [id number] [facility] [address] [place] [address] [facility] [address] [place] [address] [facility] Care Teams Bird Cage Assembler Relationship Specialty Start Date End Date Azul Bolaños PA [address] [address] PCP - General 11/24/18
--- OUTSIDE RECORDS SUMMARY | 2025-09-03 05:58 | XMS_ITS | Patient Health Record ---
Author Organization [facility] Address [address] [place] [address] Phone [phone] Care Team Providers Care Production Clerks Supervisor Name Role Phone Jacqui Deluca Primary Care Provider [phone] Melody Blakely [phone] Allergies Allergen (clinical drug ingredient) Drug/Non Drug Allergy documented on EMR Reaction Allergy Type Onset Date Status aripiprazole Abilify Unknown Drug Allergy Acti ve Reason For Referral No Information Medications Medication SIG (Take, Route, Frequency, Duration) Notes Start Date End Date Diagnosis (ICD Code) Status Vitamin D (Ergocalciferol) 1.25 MG (38143 UT) Capsule 1 capsule Oral once a week; Duration: 30 days Bipolar affective disorder, depressed, severe, with psychotic behavior (ICD_10 - F31.5) Active FLUoxetine HCl 40 MG Capsule 1 capsule Oral Once a day; Duration: 30 days Bipolar affective disorder, depressed, severe, with psychotic behavior (ICD_10 - F31.5) Active Melatonin 5 mg Tablet 1 tablet at bedtime orally daily; Duration: 21 days As needed Active Vraylar 3 MG Capsule 1 capsule Orally Once a day; Duration: 30 days Bipolar affective disorder, depressed, severe, with psychotic behavior (ICD_10 - F31.5) Active traZODone HCl 100 MG Tablet 1 tablet at bedtime Orally Once a day; Duration: 30 days As needed Bipolar affective disorder, depressed, severe, with psychotic behavior (ICD_10 - F31.5) Active Folic Acid 1 MG Tablet Oral; Duration: 28 Days Active Cetirizine HCl 10 MG Tablet Oral; Duration: 28 Days Active Amoxicillin 875 MG Tablet Oral; Duration: 10 Days Active hydrOXYzine HCl 50 mg Tablet 1 tablet orally 4 times a day; Duration: 30 days As needed Bipolar affective disorder, depressed, severe, with psychotic behavior (ICD_10 - F31.5) Active Meclizine HCl 25 MG Tablet Oral; Duration: 10 Days Active Fluticasone Propionate 50 MCG/ACT Suspension Nasal; Duration: 30 Days Active Sucralfate 1 GM Tablet Oral; Duration: 30 Days Active Pantoprazole Sodium 40 MG Tablet Delayed Release Oral; Duration: 28 Days Active Social History Tobacco Use: Social History Observation Description Date Details (start date - stop date) Current Smoker NA - NA Sex Observation Social History Observation Description Sex Observation Female SDOH Assessments Date Tool Assessment Assessment LOINC Value Assessment Notes Goals Interventions 03/22/20 PRAPARE (LOINC: 29479-3) Total Score: 9 Date Completed/Upda abimael: 02/21/20 25 What is your current housing situation? 60293-9 I have housing (HI11159-8) Are you worried about losing your housing? 63364-5 No (LA32-8) What is the highest level of school that you have finished? 33428-4 High school diploma or GED (LP47122-6) What is your current work situation? 10077-5 Unemployed and seeking work (VW38105-8) In the past year, have you o r any family members you live with been unable to get any of the following when it was really needed? Check all that apply 79854-8 Food (TQ91287-6) Has lack of transportation k ept you from medical appointments, meetings, work or from getting things needed for daily living? 46074-8 No (LA32-8) How often do you see or talk to people that you care about and feel close to? (For example: talking to friends on the phone, visiting friends or family, going to episcopalian or club meetings) 29237-7 1 or 2 times a week (HM59950-3) How stressed are you? Stress is when someone feels tense, nervous, anxious, or can\t sleep at night because their mind is troubled 68456-0 Quite a bit (SA09703-3) In the past year have you sp ent more than 2 nights in a row in a correction, assisted, long term center, or juvenile correctional facility? 09467-9 No (LA32-8) Do you feel physically and emotionally safe where you currently live? 10576-4 Yes (LA33-6) In the past year, have you b een afraid of your partner or ex-partner? 44415-0 No (LA32-8) PRAPARE Score: 9 Social History Social Determinants Social Info Question Answer Notes PRAPARE Date Completed/Updated: 02/20/2025 What is your current housing situation? I have h ousing Are you worried about losing your housing? No What is the highest level of school that you have finished? High school diploma or GED What is your current work situation? Unemployed and seeking work In the past year, have you o r any family members you live with been unable to get any of the following when it was really needed? Check all that apply Food Has lack of transportation k ept you from medical appointments, meetings, work or from getting things needed for daily living? No How often do you see or talk to people that you care about and feel close to? (For example: talking to friends on the phone, visiting friends or family, going to episcopalian or club meetings) 1 or 2 times a week How stressed are you? Stress is when someone feels tense, nervous, anxious, or can\t sleep at night because their mind is troubled Quite a bit In the past year have you sp ent more than 2 nights in a row in a correction, assisted, long term center, or juvenile correctional facility? No Do you feel physically and e motionally safe where you currently live? Yes In the past year, have you b een afraid of your partner or ex-partner? No PRAPARE Score: 9 Primary Social History Social Info Question Answer Notes Single Question Alcohol Screening How ma ny times in the past year have you had (4 for women, or 5 for men) or more drinks in a day? 0 Tobacco Use: Social Info Question Answer Notes Tobacco Control (Standard) Tobacco use: Current smoker Are you interested in quitting? Thinking about quitting Problems Problem Type SNOMED Code ICD Code Dates Problem Status W/U Status Risk Notes Problem Tobacco user (679640504) Nicotine dependence, unspecified, uncomplicated (F17.200) Added On: 024 Active confirmed Problem Bipolar affectiv e disorder, depressed, severe, with psychotic behavior (F31.5) Added On: 024 Active confirmed Encounters Date Time Type Facility Location Provider Diagnosis 09/07/20 24 09:20 AM BEHAV CHNG SMOKING 3-10 MIN (85841) [address] [place] [address] Jacqui Deluca Bipolar affective disorder, depressed, severe, with psychotic behavior F31.5 and Nicotine dependence, unspecified, uncomplicated F17.200 10/12/19 25 02:20 PM Telehealth Office Visit, Est Pt., Level 4 (97161) [address] [address] Jacqui Deluca Bipolar affective disorder, depressed, severe, with psychotic behavior F31.5 01/24/20 25 10:40 AM Telehealth Office Visit, Est Pt., Level 4 (58796) [place] [address] [place] [address] Jacqui Deluca Bipolar affective disorder, depressed, severe, with psychotic behavior F31.5 03/22/20 25 02:00 PM Telehealth Office Visit, Est Pt., Level 4 (70799) [address] [place] [address] Jacqui Deluca Bipolar affective disorder, depressed, severe, with psychotic behavior F31.5 04/26/20 25 09:00 AM Telehealth Office Visit, Est Pt., Level 4 (09875) [address] [place] [address] Jacqui Deluca Bipolar affective disorder, depressed, severe, with psychotic behavior F31.5 07/31/20 25 09:40 AM Telehealth Office Visit, Est Pt., Level 4 (64937) [facility] [address] [place] [address] Jacqui Deluca Bipolar affective disorder, depressed, severe, with psychotic behavior F31.5 09/06/20 24 01:41 PM Telephone Encounter [address] [place] [address] Jacqui Deluca 01/05/20 25 02:50 PM Telephone Encounter [facility] [address] [address] Jacqui Deluca 01/31/20 25 01:37 PM Telephone Encounter [address] [address] Jacqui Deluca Bipolar affective disorder, depressed, severe, with psychotic behavior F31.5 02/05/20 25 09:18 AM Telephone Encounter [address] [address] Jacqui Deluca Bipolar affective disorder, depressed, severe, with psychotic behavior F31.5 02/22/20 25 01:18 PM Telephone Encounter [address] [address] Jacqui Deluca 03/12/20 25 02:07 PM Telephone Encounter [facility] [address] [address] Jacqui Deluca 03/13/20 25 09:05 AM Telephone Encounter [facility] [address] [address] Jacqui Deluca Bipolar affective disorder, depressed, severe, with psychotic behavior F31.5 03/16/20 25 08:49 PM Telephone Encounter [address] [place] [address] Jacqui Deluca Bipolar affective disorder, depressed, severe, with psychotic behavior F31.5 07/12/20 25 03:39 PM Telephone Encounter [address] [address] Jacqui Deluca Bipolar affective disorder, depressed, severe, with psychotic behavior F31.5 Assessments Encounter Date Diagnosis (ICD Code) Assessment Notes Treat ment Notes Section Notes 07/12/2025 Bipolar affective disorder, depressed, severe, with psychotic behavior (ICD-10 - F31.5) 07/31/2025 Bipolar affective disorder, depressed, severe, with psychotic behavior (ICD-10 - F31.5) Continue current medications. Labs done recently. Continue services as scheduled. May self-administer medications or be administered own oral medications per [facility] protocols. Provided informed consent with understanding of side effects, adverse effects, risks and benefits as well as alternative treatments as previously discussed and with the above recommended medications & other aspects of the treatment program. Agrees to return sooner if symptoms worsen or suicidal or homicidal ideations occur. 01/30/2025 Bipolar affective disorder, depressed, severe, with psychotic behavior (ICD-10 - F31.5) 02/04/2025 Bipolar affective disorder, depressed, severe, with psychotic behavior (ICD-10 - F31.5) 03/13/2025 Bipolar affective disorder, depressed, severe, with psychotic behavior (ICD-10 - F31.5) 03/16/2025 Bipolar affective disorder, depressed, severe, with psychotic behavior (ICD-10 - F31.5) 03/22/2025 Bipolar affective disorder, depressed, severe, with psychotic behavior (ICD-10 - F31.5) Continue current medications. Continue services as scheduled. Labs completed recently. May self-administer medications or be administered own oral medications per Figure 1 protocols. Provided informed consent with understanding of side effects, adverse effects, risks and benefits as well as alternative treatments as previously discussed and with the above recommended medications & other aspects of the treatment program. Agrees to return sooner if symptoms worsen or suicidal or homicidal ideations occur. 04/26/2025 Bipolar affective disorder, depressed, severe, with psychotic behavior (ICD-10 - F31.5) Continue current medications. Continue services as scheduled. Labs completed recently. May self-administer medications or be administered own oral medications per [facility] protocols. Provided informed consent with understanding of side effects, adverse effects, risks and benefits as well as alternative treatments as previously discussed and with the above recommended medications & other aspects of the treatment program. Agrees to return sooner if symptoms worsen or suicidal or homicidal ideations occur. 09/07/2024 Bipolar affective disorder, depressed, severe, with psychotic behavior (ICD-10 - F31.5) Continue current medications. Continue services as scheduled. Labs completed recently. May self-administer medications or be administered own oral medications per [facility] protocols. Provided informed consent with understanding of side effects, adverse effects, risks and benefits as well as alternative treatments as previously discussed and with the above recommended medications & other aspects of the treatment program. Agrees to return sooner if symptoms worsen or suicidal or homicidal ideations occur. 10/12/2024 Bipolar affective disorder, depressed, severe, with psychotic behavior (ICD-10 - F31.5) Continue current medications. Continue services as scheduled. Labs completed recently. May self-administer medications or be administered own oral medications per Figure 1 protocols. Provided informed consent with understanding of side effects, adverse effects, risks and benefits as well as alternative treatments as previously discussed and with the above recommended medications & other aspects of the treatment program. Agrees to return sooner if symptoms worsen or suicidal or homicidal ideations occur. 01/23/2025 Bipolar affective disorder, depressed, severe, with psychotic behavior (ICD-10 - F31.5) Continue current medications, increasing the trazodone to help with sleep.. Continue services as scheduled. Labs completed recently. May self-administer medications or be administered own oral medications per Figure 1 protocols. Provided informed consent with understanding of side effects, adverse effects, risks and benefits as well as alternative treatments as previously discussed and with the above recommended medications & other aspects of the treatment program. Agrees to return sooner if symptoms worsen or suicidal or homicidal ideations occur. 09/07/2024 Nicotine dependence, unspecified, uncomplicated (ICD-10 - F17.200) Plan Of Treatment No Information Insurance Providers Payer Name Payer Address Payer Phone Subscriber Number Group Number Insured Name Patient Relationship to Insured Coverage Start Date Coverage End Date [employer] [address] [place] [address] [id number] Franklin Reynoso Self - patient is the insured 4 [employer] [address] [place] [address] [id number] Franklin Reynoso Self - patient is the insured 4 Medical (General) History Medical History History ICD Code asthma Hemoglobin C (Blood disorder) GERD Hypertension Obesity Fatty liver Enlarged spleen Vertigo Surgical History Surgery Date(Month/Year) cholecystectomy 2024
--- OUTSIDE RECORDS SUMMARY | 2025-09-03 05:58 | XMS_ITS | Encounter Summary ---
Author Organization [facility] Address [address] [place] [address] Phone Care Team Providers Care Program Director Cable Television Name Role Phone Azul Bolaños Primary Care Provider + Luly Washington APRN, TURRET LATHE SET UP OPERATOR Unavailable Jensen Reddy MD Unavailable [phone] Belinda Short APRN, TURRET LATHE SET UP OPERATOR Unavailable Andrew Ramos MD Unavailable Brain May MD Unavailable Pilo Gutiérrez MD Unavailable [phone] Reason for Visit * Reason Comments Medication Refill Encounter Details Date Type Department Care Team (Late st Contact Info) Description 06/18/2021 [facility] [address] [place] [address] Mike Posada APRN, TURRET LATHE SET UP OPERATOR #[address] [address] Medication Refill Social History Tobacco Use Types Packs/Day Years Used Date Smoking Tobacco: Some Days Cigarettes 0.3 15 Cigars Smokeless Tobacco: Never Comments:ONE CIGARETTE ONCE A WEEK Alcohol Use Standard Drinks/Week Comments Yes 0 (1 standard drink = 0.6 oz pur e alcohol) OCCASSIONALLY PHQ-2 Answer Date Recorded PHQ-2 Score 0 05/29/2019 Education Answer Date Recorded What is the highest level of school you have completed or the highest degree you have received? Some college, no degree 04/30/2021 Comments No Sex and Gender Information Value Date Recorded Sex Assigned at Not on file Legal Sex Female 7:38 PM CDT Gender Identity Not on file Sexual Orientation Not on file COVID-19 Exposure Response Date Recorded In the last month, have you been in contact with someone who was confirmed or suspected to have Coronavirus / COVID-19? No / Unsure 06/03/2021 10:51 AM CDT documented as of this encounter Miscellaneous Notes * Telephone Encounter - Blanca Barbour RN - 06/18/2021 3:28 PM CDT Per nursing clinical judgement, provider to review and approve the medication(s) order(s) if appropriate. Requested Prescriptions Pending Prescriptions Disp Refills folic acid (FOLVITE) 1 MG Tablet [Pharmacy Med Name: Folic Acid 1MG TABS] 28 Tablet 0 Sig: Take 1 Tablet by mouth daily. There is no refill protocol information for this order famotidine (PEPCID) 20 MG Tablet [Pharmacy Med Name: Famotidine 20MG TABS] 56 Tablet Sig: TAKE 1 TABLET BY MOUTH TWICE A DAY NEEDED There is no refill protocol information for this order documented in this encounter Plan of Treatment Upcoming Encounters Date Type Department Care Team (Latest Contact Info) Description 09/10/2025 9:40 AM TOE FORMER STITCHDOWNS Immunization [facility] [address] [place] [address] 09/16/2025 9:30 AM TOE FORMER [place]ITCHD[place]NS [facility] [address] [place] [address] Mariela Ashley February, PAC [address] [place] [address] Discharge Disposition: Discharged to home or Selfcare 09/23/2025 9:20 AM TOE FORMER [place]NS [facility] [address] [place] [address] AshleyMariela February, PAC [address] [place] [address] Discharge Disposition: Discharged to home or Selfcare 09/23/2025 10:30 AM TOE FORMER [place]ITCHDOWNS Office Visit [facility] - Pulmonology & Sleep Medicine [facility] [address] [place] [address] Miranda Jerez APRN, TURRET LATHE SET UP OPERATOR #[address] [address] 10/09/2025 8:00 AM TOE FORMER STITCHDOWNS Hospital [facility] Per[facility] [address] [place] [address] See Monreal MD [address] [address] 10/09/2025 8:00 AM TOE FORMER [place]ITCHD[place]NS - 10/09/2025 8:30 AM TOE FORMER [place]ITCHDOW[employer] [facility] [address] [place] [address] See Monreal MD [address] [address] EGD 01/02/2026 2:20 PM CDT Office Visit [facility] Medical [facility] - Family Medicine - [place] [address] [place] [address] MaloualejandraAzul jin, PAC [address] [place] [address] Scheduled Procedures Name Priority Associated Diagnoses Date/Ti me EGD GASTRIC REFLUX 10/09/2025 8:00 AM TOE FORMER STITCHDOWNS documented as of this encounter Visit Diagnoses Not on filedocumented in this encounter Additional Health Concerns Infection Onset Date Last Indicated Resolved Time COVID - 19 01/11/2022 01/11/2022 01/31/2022 12:1 7 AM CDT COVID - 19 08/16/2023 08/16/2023 08/26/2023 12:1 6 AM TOE FORMER STITCHDOWNS C. difficile Rule-Out 10/19/2024 10/19/20242024 12:16 AM TOE FORMER [place]ITCHD[place]NS COVID - 19 05/13/2025 05/13/2025 05/13/2025 11:5 1 AM CDT Respiratory Rule-Out 05/13/2025 05/13/2025 025 12:33 PM CDT Respiratory Rule-Out 08/27/2025 08/27/2025 025 3:34 PM TOE FORMER STITCHDOWNS Assessment Noted Time PHQ-9 Depression Total Score: 0 02/13/20 8:59 AM CDT documented as of this encounter Care Teams Program Director Cable Television Relationship Specialty Start Date End Date Azul Bolaños, PAC [address] [place] [address] PCP - General Physician Rail Car Unloader 11/25/16 Luly Washington, HOG WORKER, TURRET LATHE SET UP OPERATOR [address] [place] [address] Obstetrics & Gynecology 02/09/21 Jensen Reddy MD [address] [place] [address] Consulting Physician Obstetrics & Gynecology 07/05/22 Belinda Short APRN, TURRET LATHE SET UP OPERATOR [address] [place] [address] Nurse Practitioner Advanced Practice Nurse 09/02/23 Andrew Ramos MD [address] [place] [address] Consulting Physician Medical Oncology 06/20/23 Brain May MD [address]2 [facility] [address] [place] [address] Consulting Physician General Surgery 08/31/24 Pilo Gutiérrez MD 2 [facility] [address] [place] [address] Consulting Physician General Surgery 05/28/25 documented as of this encounter
--- OUTSIDE RECORDS SUMMARY | 2025-09-03 05:58 | XMS_ITS | Encounter Summary ---
Author Organization [facility] Address [address] [place] [address] Phone Care Team Providers Care Tinning Machine Set Up Operator Name Role Phone Azul Bolaños Primary Care Provider + Luly Washington APRN, PACK PULLER Unavailable Jensen Reddy MD Unavailable [phone] Belinda Short APRN, PACK PULLER Unavailable Andrew Ramos MD Unavailable Brain May MD Unavailable Pilo Gutiérrez MD Unavailable Reason for Visit * Reason Comments Medication Refill Encounter Details Date Type Department Care Team (Late st Contact Info) Description 05/05/20[facility] [address] [place] [address] Andrew Ramos MD [address] [place] [address] Medication Refill Social History Tobacco Use Types [...] have Coronavirus / COVID-19? No / Unsure 05/07/2021 1:38 PM CDT documented as of this encounter Functional Status documented as of this encounter Mental Status * Question Answer Entry Date Author BP 142/80 05/07/2021 1:46 PM CDT Shayy Gallego CMA Temp 98 05/07/2021 1:46 PM CDT Shayy Gallego CMA Pulse 84 05/07/2021 1:46 PM CDT Shayy Gallego CMA documented in this encounter Miscellaneous Notes * Telephone Encounter - Beth Garza RN - 05/05/2021 9:35 AM CDT 1 month supply Folic Acid sent patient will need f/u for additional refills documented in this encounter Plan of Treatment Upcoming Encounters Date Type Department Care Team (Latest Contact Info) Description 09/10/2025 9:40 AM R&D ENGINEER Immunization [facility] [address] [place] [address] 09/16/2025 9:30 AM R&D ENGINEER [facility] [address] [place] [address] Mariela Ashley Mitzi, PAC [address] [place] [address] Discharge Disposition: Discharged to home or Selfcare 09/23/2025 9:20 AM R&D ENGINEER Office Visit [facility] - [facility] Center Oncology Services [address] [place] [address] Mariela Ashley, PAC [address] [place] [address] Discharge Disposition: Discharged to home or Selfcare 09/23/2025 10:30 AM R&D ENGINEER Office Visit [facility] - Pulmonology & Sleep Medicine [facility] [address] [place] [address] Miranda Jerez APRN, PACK PULLER #[address] [address] 10/09/2025 8:00 AM R&D ENGINEER [facility] [address] [place] [address] See Monreal MD [address] [address] 10/09/2025 8:00 AM R&D ENGINEER - 10/09/2025 8:30 AM R&D ENGINEER Surgery [facility] Gi Lab Periop [address] [place] [address] See Monreal MD [address] [address] EGD 01/02/2026 2:20 PM CDT Office Visit [facility] Medical [facility] - Family Medicine - [place] [address] [place] [address] Azul Bolaños, PAC [address] [place] [address] Scheduled Procedures Name Priority Associated Diagnoses Date/Ti me EGD GASTRIC REFLUX 10/09/2025 8:00 AM R&D ENGINEER documented as of this encounter Visit Diagnoses Not on filedocumented in this encounter Additional Health Concerns Infection Onset Date Last Indicated Resolved Time COVID - 19 01/11/2022 01/11/2022 01/31/2022 12:1 7 AM CDT COVID - 19 08/16/2023 08/16/2023 08/26/2023 12:1 6 AM R&D ENGINEER C. difficile Rule-Out 10/19/2024 10/19/20242024 12:16 AM R&D ENGINEER COVID - 19 05/13/2025 05/13/2025 05/13/2025 11:5 1 AM CDT Respiratory Rule-Out 05/13/2025 05/13/2025 025 12:33 PM CDT Respiratory Rule-Out 08/27/2025 08/27/2025 025 3:34 PM R&D ENGINEER Assessment Noted Time PHQ-9 Depression Total Score: 0 02/13/20 8:59 AM CDT documented as of this encounter Care Teams Tinning Machine Set Up Operator Relationship Specialty Start Date End Date Azul Bolaños PAC [address] [place] [address] PCP - General Physician Printer Technician 11/25/16 Luly Washington APRN, PACK PULLER [address] [place] [address] Obstetrics & Gynecology 02/09/21 Jensen Reddy MD [address] [place] [address] Consulting Physician Obstetrics & Gynecology 07/05/22 Belinda Short APRN, PACK PULLER [address] [place] [address] Nurse Practitioner Advanced Practice Nurse 09/02/23 Andrew Ramos MD [address] [place] [address] Consulting Physician Medical Oncology 06/20/23 Brain May MD #[address] [address] Consulting Physician General Surgery 08/31/24 Pilo Gutiérrez MD [address] [address] Consulting Physician General Surgery 05/28/25 documented as of this encounter
--- OUTSIDE RECORDS SUMMARY | 2025-09-03 05:58 | XMS_ITS | Encounter Summary ---
Author Organization [facility] Address [address] [place] [address] Phone Care Team Providers Care Implementation Lead Name Role Phone Azul Bolaños Primary Care Provider + Luly Washington APRN, MEDICAL ANTHROPOLOGIST Unavailable Jensen Reddy MD Unavailable [phone] Belinda Short APRN, MEDICAL ANTHROPOLOGIST Unavailable Andrew Ramos MD Unavailable [phone] Brain May MD Unavailable [phone] Pilo Gutiérrez MD Unavailable [phone] Reason for Visit * Reason Comments Medication Refill Encounter Details Date Type Department Care Team (Late st Contact Info) Description 01/25/2023 [facility]ill [facility] - [facility] - [place] [address] [place] [phone] Azul Bolaños PAC [address] [place] [address] Medication Refill Social History Tobacco Use Types Packs/Day Years Used Date Smoking Tobacco: Former Cigarettes 0.3 15 0 09/2006 - 09/2021 Smokeless Tobacco: Never Alcohol Use Standard Drinks/Week Comments Yes 0 (1 standard drink = 0.6 oz pur e alcohol) OCCASSIONALLY PHQ-2 Answer Date Recorded Total Score - Questions 1-9 0 08/26 Education Answer Date Recorded What is the highest level of school you have completed or the highest degree you have received? Some college, no degree 04/30/2021 Sexually Active Control Partners Comments Not Currently Male Comments No Sex and Gender Information Value Date Recorded Sex Assigned at Not on file Legal Sex Female 7:38 PM CDT Gender Identity Not on file Sexual Orientation Not on file COVID-19 Exposure Response Date Recorded In the last 10 days, have yo u been in contact with someone who was confirmed or suspected to have Coronavirus/COVID-19? No / Unsure 01/04/2023 10:45 AM CDT documented as of this encounter Plan of Treatment Upcoming Encounters Date Type Department Care Team (Latest Contact Info) Description 09/10/2025 9:40 AM TOWER HOIST OPERATOR Immunization [facility] Medical [facility] - Family Medicine - [place] [address] [place] [address] 09/16/2025 9:30 AM TOWER HOIST OPERATOR [facility] [address] [place] [address] Mariela Ashley February, PAC [address] [place] [address] Discharge Disposition: Discharged to home or Selfcare 09/23/2025 9:20 AM TOWER HOIST OPERATOR Office Visit [facility] Oncology Services [address] [place] [address] Mariela Ashley February, PAC [address] [place] [address] Discharge Disposition: Discharged to home or Selfcare 09/23/2025 10:30 AM TOWER HOIST OPERATOR [facility] [address] [place] [address] Miranda Jerez APRN, MEDICAL ANTHROPOLOGIST #[address] [address] 10/09/2025 8:00 AM TOWER HOIST OPERATOR [facility] [address] [place] [address] See Monreal MD [address] [address] 10/09/2025 8:00 AM TOWER HOIST OPERATOR - 10/09/2025 8:30 AM TOWER HOIST OPERATOR Surgery [facility] Periop [address] [place] [address] See Monreal MD [address] [address] EGD 01/02/2026 2:20 PM CDT Office Visit [facility] Group - Family Medicine [facility] [address] [place] [address] Azul Bolaños, PAC [address] [place] [address] Scheduled Procedures Name Priority Associated Diagnoses Date/Ti me EGD GASTRIC REFLUX 10/09/2025 8:00 AM TOWER HOIST OPERATOR documented as of this encounter Visit Diagnoses Diagnosis Epigastric abdominal pain Abdominal pain, epigastric documented in this encounter Additional Health Concerns Infection Onset Date Last Indicated Resolved Time COVID - 19 08/16/2023 08/16/2023 08/26/2023 12:1 6 AM TOWER HOIST OPERATOR C. difficile Rule-Out 10/19/2024 10/19/20242024 12:16 AM TOWER HOIST OPERATOR COVID - 19 05/13/2025 05/13/2025 05/13/2025 11:5 1 AM CDT Respiratory Rule-Out 05/13/2025 05/13/2025 025 12:33 PM CDT Respiratory Rule-Out 08/27/2025 08/27/2025 025 3:34 PM TOWER HOIST OPERATOR Assessment Noted Time PHQ-9 Depression Total Score: 0 09/13/20 9:00 AM TOWER HOIST OPERATOR documented as of this encounter Care Teams Implementation Lead Relationship Specialty Start Date End Date Azul Bolaños [facility] [address] [place] [address] PCP - General Physician Community Leader 11/25/16 Luly Washington APRN, MEDICAL ANTHROPOLOGIST [address] [place] [address] Obstetrics & Gynecology 02/09/21 Jensen Reddy MD [address] [place] [phone] Consulting Physician Obstetrics & Gynecology 07/05/22 Belinda Short APRN, MEDICAL ANTHROPOLOGIST [address] [place] [address] Nurse Practitioner Advanced Practice Nurse 09/02/23 Andrew Ramos MD [address] [place] [address] Consulting Physician Medical Oncology 06/20/23 Brain May MD #[address] [phone] Consulting Physician General Surgery 08/31/24 Pilo Gutiérrez MD 2 [address] [place] [address] Consulting Physician General Surgery 05/28/25 documented as of this encounter
--- OUTSIDE RECORDS SUMMARY | 2025-09-03 06:01 | XMS_ITS | Encounter Summary ---
Author Organization [facility] Address [address] [place] [address] Phone Care Team Providers Care Services Account Manager Name Role Phone Azul Bolaños Primary Care Provider + Luly Washington APRN, PROMOTION WRITER Unavailable Jensen Reddy MD Unavailable [phone] Belinda Short APRN, PROMOTION WRITER Unavailable Andrew Ramos MD Unavailable Brain May MD Unavailable Pilo Gutiérrez MD Unavailable [phone] Reason for Visit * Reason Comments Medication Refill Encounter Details Date Type Department Care Team (Late st Contact Info) Description 01/09/2024 Refill [facility] - [place] [address] [place] [phone] Azul Bolaños PAC [address] [place] [address] Medication Refill Social History Tobacco Use Types Packs/Day Years Used Date Smoking Tobacco: Former Cigarettes 0.3 15 0 09/2006 - 09/2021 Smokeless Tobacco: Never Alcohol Use Standard Drinks/Week Comments Yes 0 (1 standard drink = 0.6 oz pur e alcohol) OCCASSIONALLY [facility] Utilities Answer Date Recorded In the past 12 months has th e electric, gas, oil, or water company threatened to shut off services in your home? No 10/11/2023 Social Connection and Isolation Panel Answer Date Recorded In a typical week, how many times do you talk on the phone with family, friends, or neighbors? More than three times a week 10/11/2023 How often do you get togethe r with friends or relatives? More than three times a week 10/11/2023 How often do you attend chur ch or anabaptist services? 1 to 4 times per year 10/11/2023 Do you belong to any clubs o r organizations such as mandaeism groups, unions, fraternal or athletic groups, or school groups? No 10/11/2023 How often do you attend meet ings of the clubs or organizations you belong to? Never 10/11/2023 Are you , , di vorced, , never , or living with a partner? Never 10/11/2023 AUDIT-C Answer Date Recorded Q1: How often do you have a drink containing alc ohol? Monthly or less 10/11/2023 Q2: How many drinks containi ng alcohol do you have on a typical day when you are drinking? 1 or 2 10/11/2023 Q3: How often do you have si x or more drinks on one occasion? Never 10/11/2023 Overall Financial Resource Strain (CARDIA) Answe r Date Recorded How hard is it for you to pa y for the very basics like food, housing, medical care, and heating? Hard 10/11/2023 PHQ-2 Answer Date Recorded Total Score - Questions 1-9 0 05/27 [facility] [place] of Occupat ional Health - Occupational Stress Questionnaire Answer Date Recorded Do you feel stress - tense, restless, nervous, or anxious, or unable to sleep at night because your mind is troubled all the time - these days? Very much 10/11/2023 Exercise Vital Sign Answer Date Recorde d On average, how many days pe r week do you engage in moderate to strenuous exercise (like a brisk walk)? 2 days 10/11/2023 On average, how many minutes do you engage in exercise at this level? 40 min 10/11/2023 Hunger Vital Sign Answer Date Recorded Within the past 12 months, y ou worried that your food would run out before you got the money to buy more. Often true 10/11/19 24 Within the past 12 months, t he food you bought just didn't last and you didn't have money to get more. Often true 10/11/2023 PRAPARE - Transportation Answer Date Re corded In the past 12 months, has l ack of transportation kept you from medical appointments or from getting medications? Yes 09/26 In the past 12 months, has l ack of transportation kept you from meetings, work, or from getting things needed for daily living? Yes 10/11/2023 Housing Stability Vital Sign Answer Rah e Recorded In the last 12 months, was t here a time when you were not able to pay the mortgage or rent on time? No 10/11/2023 In the last 12 months, how many places have you lived? 1 10/11/2023 In the last 12 months, was t here a time when you did not have a steady place to sleep or slept in a longterm (including now)? No 10/11/2023 Education Answer Date Recorded What is the [...] on file documented as of this encounter Miscellaneous Notes * Telephone Encounter - Blanca Barbour RN - 01/09/2024 2:56 PM CDT Medication failed the protocol, provider to review and approve the medication order if appropriate. Requested Prescriptions Pending Prescriptions Disp Refills naproxen (NAPROSYN) 500 MG Tablet [Pharmacy Med Name: Naproxen 500MG TABS] 60 Tablet 1 Sig: TAKE 1 TABLET BY MOUTH TWICE A DAY NEEDED FOR MODERATE OR MORE SEVERE PAIN NSAIDs Protocol Failed - 01/09/2024 11:00 AM Failed - HGB greater than 10 or HCT greater than 30 in past 12 months HEMOGLOBIN (HGB) Date Value Ref Range Status 08/16/2023 8.9 (L) 12.0 - 15.8 g/dL Final HEMOGLOBIN A Date Value Ref Range Status 01/10/2017 0 % Final HEMOGLOBIN, Date Value Ref Range Status 01/10/2017 0.4 <2.0 % Final HEMATOCRIT (HCT) Date Value Ref Range Status 08/16/2023 25.2 (L) 36.0 - 47.0 % Final Passed - Normal serum creatinine in past 12 months CREATININE, BLOOD Date Value Ref Range Status 08/16/2023 0.73 0.60 - 1.00 mg/dL Final Passed - No positive test in the past 12 months or most recent test was negative Passed - Visit with relevant provider in past 12 months or upcoming 90 days Recent Visits Date Type Provider Dept 10/12/23 Office Visit Azul Bolaños PAC [facility] 08/23/23 Office Visit Mike Posada APRN, KHANG [facility] 08/11/23 Office Visit Azul Bolaños PAC [facility] 06/07/23 Office Visit Azul Bolaños, PAC [facility] 05/04/23 Office Visit Azul Bolaños, PAC [facility] [place] Showing recent visits within past 365 days and meeting all other requirements Future Appointments Date Type Provider Dept 01/27/24 Appointment Kelli Cho APRN, PROMOTION WRITER [facility] Showing future appointments within next 90 days and meeting all other requirements Passed - No active on record Passed - No matching NSAID med order in past 45 days No matching medication orders between 11/25/2023 2:56 PM and 01/09/2024 2:56 PM Passed - AST less than 55 or ALT less than 90 in past 12 months SGOT (AST) Date Value Ref Range Status 08/16/2023 20 5 - 34 U/L Final SGPT (ALT) Date Value Ref Range Status 08/16/2023 20 0 - 55 U/L Final albuterol 108 (90 Base) MCG/ACT Aerosol Solution [Pharmacy Med Name: Albuterol Sulfate HFA 108 (90 Base)MCG/ACT AERS] 6.7 g 1 Sig: INHALE 2 PUFFS EVERY FOUR HOURS NEEDED FOR WHEEZING OR COUGH Short Acting Inhaled Beta-Agonists Protocol Passed - 01/09/2024 11:00 AM Passed - Visit with relevant provider in past 12 months or upcoming 90 days Recent Visits Date Type Provider Dept 10/12/23 Office Visit Azul Bolaños, PAC [facility] 08/23/23 Office Visit Mike Posada APRN, KHANG [facility] 08/11/23 Office Visit Azul Bolaños, PAC [facility] 06/07/23 Office Visit Azul Bolaños, PAC [facility] 05/04/23 Office Visit Azul Bolaños, PAC [facility] [place] Showing recent visits within past 365 days and meeting all other requirements Future Appointments Date Type Provider Dept 01/27/24 Appointment Kelli Cho APRN, KHANG [facility] Showing future appointments within next 90 days and meeting all other requirements documented in this encounter Plan of Treatment Upcoming Encounters Date Type Department Care Team (Latest Contact Info) Description 09/10/2025 9:40 AM EXTERIOR DESIGNER Immunization [facility] - Family Medicine - [place] [address] [place] [address] 09/16/2025 9:30 AM EXTERIOR DESIGNER [facility] [address] [place] [address] Mariela Ashley Mitzi, BIJAN [address] [place] [address] Discharge Disposition: Discharged to home or Selfcare 09/23/2025 9:20 AM EXTERIOR DESIGNER Office Visit [facility] Oncology Services [address] [place] [address] Mariela Ashley February, PAC [address] [place] [address] Discharge Disposition: Discharged to home or Selfcare 09/23/2025 10:30 AM EXTERIOR DESIGNER Office Visit [facility] - Pulmonology & Sleep Medicine [facility] [address] [place] [address] Miranda Jerez APRN, PROMOTION WRITER #[address] [address] 10/09/2025 8:00 AM EXTERIOR DESIGNER [facility] [address] [place] [address] See Monreal MD [address] [address] 10/09/2025 8:00 AM EXTERIOR DESIGNER - 10/09/2025 8:30 AM EXTERIOR DESIGNER [facility] [address] [place] [address] See Monreal MD [address] [address] EGD 01/02/2026 2:20 PM CDT Office Visit [facility] Medical [facility] - Family Medicine [facility] [address] [place] [address] Azul Bolaños PAC [address] [place] [address] Scheduled Procedures Name Priority Associated Diagnoses Date/Ti me EGD GASTRIC REFLUX 10/09/2025 8:00 AM EXTERIOR DESIGNER documented as of this encounter Visit Diagnoses Not on filedocumented in this encounter Additional Health Concerns Infection Onset Date Last Indicated Resolved Time C. difficile Rule-Out 10/19/2024 10/19/20242024 12:16 AM EXTERIOR DESIGNER COVID - 19 05/13/2025 05/13/2025 05/13/2025 11:5 1 AM CDT Respiratory Rule-Out 05/13/2025 05/13/2025 025 12:33 PM CDT Respiratory Rule-Out 08/27/2025 08/27/2025 025 3:34 PM EXTERIOR DESIGNER Assessment Noted Time PHQ-9 Depression Total Score: 0 06/07/20 10:26 AM CDT documented as of this encounter Care Teams Services Account Manager Relationship Specialty Start Date End Date Miky Maggy, [facility] [address] [place] [address] PCP - General Physician Apartment Coordinator 11/25/16 Luly Washington APRN, PROMOTION WRITER [address] [place] [address] Obstetrics & Gynecology 02/09/21 Jensen Reddy MD [address] [place] [address] Consulting Physician Obstetrics & Gynecology 07/05/22 Belinda Short PURIFICATION OPERATOR HELPER, PROMOTION WRITER [address] [place] [address] Nurse Practitioner Advanced Practice Nurse 09/02/23 Andrew Ramos MD [address] [place] [address] Consulting Physician Medical Oncology 06/20/23 Brain May MD #[address] [address] Consulting Physician General Surgery 08/31/24 Pilo Gutiérrez MD 2 G[address] [place] [address] Consulting Physician General Surgery 05/28/25 documented as of this encounter
--- OUTSIDE RECORDS SUMMARY | 2025-09-03 06:01 | XMS_ITS | Encounter Summary ---
Author Organization [facility] Address [address] [place] [address] Phone Care Team Providers Care Compo Caster Name Role Phone Azul Bolaños Primary Care Provider + Luly Washington APRN, SALESPERSON FURNITURE Unavailable [phone] Jensen Reddy MD Unavailable [phone] Belinda Short APRN, SALESPERSON FURNITURE Unavailable Andrew Ramos MD Unavailable Brain May MD Unavailable Pilo Gutiérrez MD Unavailable [phone] Reason for Visit * Reason Comments Medication Refill Encounter Details Date Type Department Care Team (Late st Contact Info) Description 12/13/2023 Refill [facility] - [place] [address] [place] [phone] Azul Bolaños PAC [address] [place] [address] Medication Refill Social History Tobacco Use Types Packs/Day Years Used Date Smoking Tobacco: Former Cigarettes 0.3 15 0 09/2006 - 09/2021 Smokeless Tobacco: Never Alcohol Use Standard Drinks/Week Comments Yes 0 (1 standard drink = 0.6 oz pur e alcohol) OCCASSIONALLY [facility] Utilities Answer Date Recorded In the past [...] often do you attend chur ch or bahai services? 1 to 4 times per year 10/11/2023 Do you belong to any clubs o r organizations such as christianity groups, unions, fraternal or athletic groups, or [...] Total Score - Questions 1-9 0 05/27 [facility] [place] of Occupat ional Health - Occupational Stress [...] place to sleep or slept in a group home (including now)? No 10/11/2023 Education Answer Date [...] Telephone Encounter - Blanca Barbour RN - 12/13/2023 2:38 PM CDT Medication failed the protocol, provider to review and approve the medication order if appropriate. Requested Prescriptions Pending Prescriptions Disp Refills valACYclovir (VALTREX) 500 MG Tablet [Pharmacy Med Name: valACYclovir HCl 500MG TABS*] 28 Tablet 2 Sig: TAKE 1 TABLET BY MOUTH DAILY Not Delegated - Herpes Agents Protocol Failed - 12/13/2023 1:42 PM Failed - This refill cannot be delegated Passed - Visit with relevant provider in past 12 months or upcoming 90 days Recent Visits Date Type Provider Dept 10/12/23 Office Visit Azul Bolaños, PAC [facility] 08/23/23 Office Visit Mike Posada APRN, SALESPERSON FURNITURE [facility] 08/11/23 Office Visit Azul Bolaños, PAC [facility] 06/07/23 Office Visit Azul Bolaños, PAC [facility] 05/04/23 Office Visit Azul Bolaños, PAC [facility] 01/04/23 Office Visit Azul Bolaños, PAC [facility] Showing recent visits within past 365 days and meeting all other requirements Future Appointments No visits were found meeting these conditions. Showing future appointments within next 90 days and meeting all other requirements documented in this encounter Plan of Treatment Upcoming Encounters Date Type Department Care Team (Latest Contact Info) Description 09/10/2025 9:40 AM TOBACCO BUYER Immunization [facility] Medical Group - Family Medicine - [place] [address] [place] [address] 09/16/2025 9:30 AM TOBACCO BUYER [facility] [address] [place] [address] Mariela Ashley February, PAC [address] [place] [address] Discharge Disposition: Discharged to home or Selfcare 09/23/2025 9:20 AM TOBACCO BUYER Office Visit [facility] Oncology Services [address] [place] [address] Mariela Ashley February, PAC [address] [place] [address] Discharge Disposition: Discharged to home or Selfcare 09/23/2025 10:30 AM TOBACCO BUYER [facility] - [place] [address] [place] [address] Miranda Jerez APRN, SALESPERSON FURNITURE #[address] [address] 10/09/2025 8:00 AM TOBACCO BUYER [facility] [address] [place] [address] See Monreal MD [address] [address] 10/09/2025 8:00 AM TOBACCO BUYER - 10/09/2025 8:30 AM TOBACCO BUYER [facility] Periop [address] [place] [address] See Monreal MD [address] [address] EGD 01/02/2026 2:20 PM CDT Office Visit [facility] - Family Medicine - [place] [address] [place] [address] Azul Bolaños, BIJAN [address] [place] [address] Scheduled Procedures Name Priority Associated Diagnoses Date/Ti me EGD GASTRIC REFLUX 10/09/2025 8:00 AM TOBACCO BUYER documented as of this encounter Visit Diagnoses Not on filedocumented in this encounter Additional Health Concerns Infection Onset Date Last Indicated Resolved Time C. difficile Rule-Out 10/19/2024 10/19/20242024 12:16 AM TOBACCO BUYER COVID - 19 05/13/2025 05/13/2025 05/13/2025 11:5 1 AM CDT Respiratory Rule-Out 05/13/2025 05/13/2025 025 12:33 PM CDT Respiratory Rule-Out 08/27/2025 08/27/2025 025 3:34 PM TOBACCO BUYER Assessment Noted Time PHQ-9 Depression Total Score: 0 06/07/20 10:26 AM CDT documented as of this encounter Care Teams Compo Caster Relationship Specialty Start Date End Date Azul Bolaños [facility] #[address] [place] [address] PCP - General Physician Cloth Burler 11/25/16 Luly Washington APRN, SALESPERSON FURNITURE [address] [place] [address] Obstetrics & Gynecology 02/09/21 Jensen Reddy MD [address] [place] [address] Consulting Physician Obstetrics & Gynecology 07/05/22 Belinda Short APRN, SALESPERSON FURNITURE [address] [place] [address] Nurse Practitioner Advanced Practice Nurse 09/02/23 Andrew Ramos MD 0 [place] [address] Consulting Physician Medical Oncology 06/20/23 Brain May MD #[address] [phone] Consulting Physician General Surgery 08/31/24 Pilo Gutiérrez MD [address] [place] [address] Consulting Physician General Surgery 05/28/25 documented as of this encounter
--- OUTSIDE RECORDS SUMMARY | 2025-09-03 06:01 | XMS_ITS | Encounter Summary ---
Author Organization [facility] Address [address] [place] [address] Phone Care Team Providers Care Welder Gas Automatic Name Role Phone Azul Bolaños Primary Care Provider + Luly Washington APRN, CEMENT RAILROAD CAR LOADER Unavailable [phone] Jensen Reddy MD Unavailable [phone] Belinda Short APRN, CEMENT RAILROAD CAR LOADER Unavailable Andrew Ramos MD Unavailable [phone] Brain May MD Unavailable Pilo Gutiérrez MD Unavailable Reason for Visit * Reason Comments Medication Refill Encounter Details Date Type Department Care Team (Late st Contact Info) Description 11/19/2020 Refill [facility] [address] [place] [address] Azul Bolaños PAC [address] [place] [address] Medication Refill Social History Tobacco Use Types Packs/Day Years Used Date Smoking Tobacco: Some Days Cigarettes 0.3 15 Cigars Smokeless Tobacco: Never Comments:ONE CIGARETTE ONCE A WEEK Alcohol Use Standard Drinks/Week Comments Yes 0 (1 standard drink = 0.6 oz pur e alcohol) OCCASSIONALLY PHQ-2 Answer Date Recorded PHQ-2 Score 0 05/29/2019 Comments No Sex and Gender Information Value Date Recorded Sex Assigned at Not on file Legal Sex Female 7:38 PM CDT Gender Identity Not on file Sexual Orientation Not on file documented as of this encounter Miscellaneous Notes * Telephone Encounter - Nancy Garcia RN - 11/19/2020 11:13 AM CST Per nursing clinical judgement, provider to review and approve the medication(s) order(s) if appropriate. Requested Prescriptions Pending Prescriptions Disp Refills ferrous sulfate 325 (65 Fe) MG Tablet [Pharmacy Med Name: Ferrous Sulfate 325 (65 Fe)MG TABS] 56 Tablet Sig: TAKE 1 TABLET BY MOUTH TWICE A DAY Endocrinology: Minerals - Iron Supplementation Passed - 11/19/2020 11:04 AM Passed - Valid encounter within last 12 months Past Office Visits Recent Outpatient Visits 1 month ago Cough [facility] - Azul Ghosh PAC 4 months ago Iron deficiency anemia due to sideropenic dysphagia [facility] Azul Ghosh PAC 1 year ago Hemoglobin C disease (HCC) [facility] Azul Ghosh PAC 1 year ago Breast pain [facility] Azul Ghosh PAC 1 year ago [facility]vated [facility] CEMENT RAILROAD CAR LOADER Upcoming Appointments Future Appointments In 2 months Andrew Ramos MD [facility] - [facility] Oncology Services, [facility] IN SERVICE EDUCATION TEACHER - Recent and Past Visits Recent Visits Date Type Provider Dept 10/09/20 Telemedicine Azul Bolaños PAC [facility] 07/22/20 Office Visit Azul Bolaños PAC [facility] Showing recent visits within past 460 days with a meds authorizing provider and meeting all other requirements Future Appointments No visits were found meeting these conditions. Showing future appointments within next 90 days with a meds authorizing provider and meeting all other requirements NILE OFFICER documented in this encounter Plan of Treatment Upcoming Encounters Date Type Department Care Team (Latest Contact Info) Description 09/10/2025 9:40 AM JUVENILE OFFICER Immunization [facility] - Family [facility] [address] [place] [address] 09/16/2025 9:30 AM JUVENILE OFFICER Lab [facility] On[facility] Services [address] [place] [address] Mariela Ashley Mitzi, PAC [address] [place] [address] Discharge Disposition: Discharged to home or Selfcare 09/23/2025 9:20 AM JUVENILE OFFICER Office Visit [facility] [address] [place] [address] Mariela Ashley Mitzi, PAC [address] [place] [address] Discharge Disposition: Discharged to home or Selfcare 09/23/2025 10:30 AM JUVENILE OFFICER Office Visit [facility] Pulmonology & Sleep [facility] [address] [place] [phone] Miranda Jerez APRN, CEMENT RAILROAD CAR LOADER #[address] [address] 10/09/2025 8:00 AM JUVENILE OFFICER Hospital Encounter [facility] Gi Lab Periop 1 [place] [address] See Monreal MD [address] [address] 10/09/2025 8:00 AM JUVENILE OFFICER - 10/09/2025 8:30 AM JUVENILE OFFICER [facility] 1 [place] [address] See Monreal MD 2 [facility] [address] [address] EGD 01/02/2026 2:20 PM CDT Office Visit [facility] [address] [place] [address] Azul Bolaños PAC [address] [place] [address] Scheduled Procedures Name Priority Associated Diagnoses Date/Ti me EGD GASTRIC REFLUX 10/09/2025 8:00 AM JUVENILE OFFICER documented as of this encounter Visit Diagnoses Not on filedocumented in this encounter Additional Health Concerns Infection Onset Date Last Indicated Resolved Time COVID - 19 01/11/2022 01/11/2022 01/31/2022 12:1 7 AM CDT COVID - 19 08/16/2023 08/16/2023 08/26/2023 12:1 6 AM JUVENILE OFFICER C. difficile Rule-Out 10/19/2024 10/19/20242024 12:16 AM JUVENILE OFFICER COVID - 19 05/13/2025 05/13/2025 05/13/2025 11:5 1 AM CDT Respiratory Rule-Out 05/13/2025 05/13/2025 025 12:33 PM CDT Respiratory Rule-Out 08/27/2025 08/27/2025 025 3:34 PM JUVENILE OFFICER Assessment Noted Time PHQ-9 Depression Total Score: 0 02/13/20 8:59 AM CDT documented as of this encounter Care Teams Welder Gas Automatic Relationship Specialty Start Date End Date Azul Bolaños PAC [address] [place] [address] PCP - General Physician Wing Coverer 11/25/16 Luly Washington APRN, CEMENT RAILROAD CAR LOADER [address] [place] [address] Obstetrics & Gynecology 02/09/21 Jensen Reddy MD [address] [place] [address] Consulting Physician Obstetrics & Gynecology 07/05/22 Belinda Short APRN, CEMENT RAILROAD CAR LOADER [address] [place] [address] Nurse Practitioner Advanced Practice Nurse 09/02/23 [place] [address] [place] [address] Consulting Physician Medical Oncology 06/20/23 Brain May MD #[address] [address] Consulting Physician General Surgery 08/31/24 Pilo Gutiérrez MD [address] [address] Consulting Physician General Surgery 05/28/25 documented as of this encounter
--- OUTSIDE RECORDS SUMMARY | 2025-09-03 06:01 | XMS_ITS | Encounter Summary ---
Author Organization [facility] Address [address] [place] [address] Phone Care Team Providers Care Bilingual Executive Assistant Name Role Phone Auzl Bolaños Primary Care Provider + Luly Washington APRN, ADVANCE SEAL DELIVERY SYSTEM MAINTAINER Unavailable Jensen Reddy MD Unavailable [phone] Belinda Short APRN, ADVANCE SEAL DELIVERY SYSTEM MAINTAINER Unavailable Andrew Ramos MD Unavailable [phone] Brain May MD Unavailable Pilo Gutiérrez MD Unavailable [phone] Reason for Visit * Reason Onset Date Comments Medication Refill Medication Refill 11/20/2020 Encounter Details Date Type Department Care Team (Late st Contact Info) Description 11/20/2020 Refill [facility] - [facility] [address] [place] [phone] Azul Bolaños PAC [address] [place] [address] Medication Refill; Medication Refill Social History Tobacco Use Types [...] encounter Miscellaneous Notes * Telephone Encounter - Steph Berg RN - 11/20/2020 11:26 AM CST To pharmacy: I tried calling but it wouldn't go through. Patient is requesting a refill on her Famotidine, but we never filled it before so don't have anything to send to you. Received above note from pharmacy this request being refused and request for Famotidine to be pended to PCP NOSE AND THROAT SPECIALIST documented in this encounter Plan of Treatment Upcoming Encounters Date Type Department Care Team (Latest Contact Info) Description 09/10/2025 9:40 AM EAR NOSE AND THROAT SPECIALIST Immunization [facility] - Family Medicine [facility] [address] [place] [address] 09/16/2025 9:30 AM EAR NOSE AND THROAT SPECIALIST [facility] [address] [place] [address] Mariela Ashley February, PAC [address] [place] [address] Discharge Disposition: Discharged to home or Selfcare 09/23/2025 9:20 AM EAR NOSE AND THROAT SPECIALIST Office Visit [facility] Oncology Services [address] [place] [address] Mariela Ashley February, PAC [address] [place] [address] Discharge Disposition: Discharged to home or Selfcare 09/23/2025 10:30 AM EAR NOSE AND THROAT SPECIALIST [facility] [address] [place] [address] Miranda Jerez APRN, ADVANCE SEAL DELIVERY SYSTEM MAINTAINER #[address] [address] 10/09/2025 8:00 AM EAR NOSE AND THROAT SPECIALIST [facility] [address] [place] [address] See Monreal MD [address] [address] 10/09/2025 8:00 AM EAR NOSE AND THROAT SPECIALIST - 10/09/2025 8:30 AM EAR NOSE AND THROAT SPECIALIST [facility]iop [address] [place] [address] See Monreal MD [address] [address] EGD 01/02/2026 2:20 PM CDT Office Visit [facility] - Family Medicine [facility] [address] [place] [address] Azul Bolaños, BIJAN [address] [place] [address] Scheduled Procedures Name Priority Associated Diagnoses Date/Ti me EGD GASTRIC REFLUX 10/09/2025 8:00 AM EAR NOSE AND THROAT SPECIALIST documented as of this encounter Visit Diagnoses Not on filedocumented in this encounter Additional Health Concerns Infection Onset Date Last Indicated Resolved Time COVID - 19 01/11/2022 01/11/2022 01/31/2022 12:1 7 AM CDT COVID - 19 08/16/2023 08/16/2023 08/26/2023 12:1 6 AM EAR NOSE AND THROAT SPECIALIST C. difficile Rule-Out 10/19/2024 10/19/20242024 12:16 AM EAR NOSE AND THROAT SPECIALIST COVID - 19 05/13/2025 05/13/2025 05/13/2025 11:5 1 AM CDT Respiratory Rule-Out 05/13/2025 05/13/2025 025 12:33 PM CDT Respiratory Rule-Out 08/27/2025 08/27/2025 025 3:34 PM EAR NOSE AND THROAT SPECIALIST Assessment Noted Time PHQ-9 Depression Total Score: 0 02/13/20 8:59 AM CDT documented as of this encounter Care Teams Bilingual Executive Assistant Relationship Specialty Start Date End Date Azul Bolaños [facility] [address] [place] [address] PCP - General Physician Rn Primary Care 11/25/16 Luly Washington, TAR BOILER, ADVANCE SEAL DELIVERY SYSTEM MAINTAINER [address] [place] [address] Obstetrics & Gynecology 02/09/21 Jensen Reddy MD [address] [place] [address] Consulting Physician Obstetrics & Gynecology 07/05/22 Belinda Short, TAR BOILER, ADVANCE SEAL DELIVERY SYSTEM MAINTAINER [address] [place] [address] Nurse Practitioner Advanced Practice Nurse 09/02/23 Andrew Ramos MD [address] [place] [address] Consulting Physician Medical Oncology 06/20/23 Brain May MD #2 [facility] [address] [place] [address] Consulting Physician General Surgery 08/31/24 Pilo Gutiérrez MD 2 [facility] [address] [place] [address] Consulting Physician General Surgery 05/28/25 documented as of this encounter
--- OUTSIDE RECORDS SUMMARY | 2025-09-03 06:01 | XMS_ITS | Encounter Summary ---
Author Organization [facility] Address [address] [place] [address] Phone Care Team Providers Care Program Review Director Name Role Phone Azul Bolaños Primary Care Provider + Luly Washington APRN, CHAIRMAN CEO Unavailable [phone] Jensen Reddy MD Unavailable [phone] Belinda Short APRN, CHAIRMAN CEO Unavailable Andrew Ramos MD Unavailable Brain May MD Unavailable Pilo Gutiérrez MD Unavailable [phone] Reason for Visit * Reason Comments Medication Refill Encounter Details Date Type Department Care Team (Late st Contact Info) Description 12/16/2020 Refill [facility] - Family Medicine - [place] [address] [place] [phone] Azul Bolaños PAC [address] [place] [address] Medication Refill Social History Tobacco Use Types [...] have Coronavirus / COVID-19? No / Unsure 11/26/2020 10:45 PM PIPING DESIGN SPECIALIST documented as of this encounter Miscellaneous Notes * Telephone Encounter - Steph Berg RN - 12/16/2020 10:38 AM CDT Per nursing clinical judgement, provider to review and approve the medication(s) order(s) if appropriate. Last OV 10/09/20, F/U None, Last Rx Famotidine 11/20/20, Ferrous Sulfate 11/19/20 Address duplicate therapy for Famotidine Steph RN Requested Prescriptions Pending Prescriptions Disp Refills famotidine (PEPCID) 20 MG Tablet [Pharmacy Med Name: Famotidine 20MG TABS] 56 Tablet 0 Sig: TAKE 1 TABLET BY MOUTH TWICE A DAY NEEDED Gastroenterology: Antiulcer - H2 Antagonists Passed - 12/16/2020 8:38 AM Passed - Valid encounter within last 12 months Past Office Visits Recent Outpatient Visits 2 months ago Cough [facility] - Azul Ghosh PAC 4 months ago Iron deficiency anemia due to sideropenic dysphagia [facility] - Azul Ghosh PAC 1 year ago Hemoglobin C disease (HCC) [facility] - Azul Ghosh PAC 1 year ago Breast pain [facility] - Azul Ghosh PAC 1 year ago Elevated hemoglobin A1c [facility] - PericoMike Caldera APN, CHAIRMAN CEO Upcoming Appointments Future Appointments In 6 days [facility]CH2; SAHCUS[facility]ound, [facility] In 1 month Andrew Ramos MD [facility] [place] [facility], [facility] LOW EMISSION AUTOMOBILE DESIGNER - Recent and Past Visits Recent Visits Date Type Provider Dept 10/09/20 Telemedicine Azul Bolaños PAC [facility] 07/22/20 Office Visit Azul Bolaños PAC [facility] Showing recent visits within past 460 days with a meds authorizing provider and meeting all other requirements Future Appointments No visits were found meeting these conditions. Showing future appointments within next 90 days with a meds authorizing provider and meeting all other requirements FeroSul 325 (65 Fe) MG Tablet [Pharmacy Med Name: Ferrous Sulfate 325 (65 Fe)MG TABS] 56 Tablet 0 Sig: TAKE 1 TABLET BY MOUTH TWICE A DAY Endocrinology: Minerals - Iron Supplementation Passed - 12/16/2020 8:38 AM Passed - Valid encounter within last 12 months Past Office Visits Recent Outpatient Visits 2 months ago Cough [facility] - Azul Ghosh PAC 4 months ago Iron deficiency anemia due to sideropenic dysphagia [facility] - Azul Ghosh PAC 1 year ago Hemoglobin C disease (HCC) [facility] - Azul Ghosh PAC 1 year ago Breast pain [facility] - Azul Ghosh PAC 1 year ago Elevated hemoglobin A1c [facility] - PericoMike Caldera APN, CHAIRMAN CEO Upcoming Appointments Future Appointments In 6 days [facility]2; [facility]HCUS[facility], [facility] In 1 month Andrew Ramos MD [facility] [place] [facility], [facility] LOW EMISSION AUTOMOBILE DESIGNER - Recent and Past Visits Recent Visits Date Type Provider Dept 10/09/20 Telemedicine Azul Bolaños PAC [facility] 07/22/20 Office Visit Azul oBlaños PAC [facility] Showing recent visits within past 460 days with a meds authorizing provider and meeting all other requirements Future Appointments No visits were found meeting these conditions. Showing future appointments within next 90 days with a meds authorizing provider and meeting all other requirements documented in this encounter Plan of Treatment Upcoming Encounters Date Type Department Care Team (Latest Contact Info) Description 09/10/2025 9:40 AM PIPING DESIGN SPECIALIST Immunization [facility] - Family Medicine [facility] [address] [place] [address] 09/16/2025 9:30 AM PIPING DESIGN SPECIALIST [facility] [address] [place] [address] Mariela Ashley Mitzi, PAC [address] [place] [address] Discharge Disposition: Discharged to home or Selfcare 09/23/2025 9:20 AM PIPING DESIGN SPECIALIST [facility] [address] [place] [address] Mariela Ashley Mitzi, PAC [address] [place] [address] Discharge Disposition: Discharged to home or Selfcare 09/23/2025 10:30 AM PIPING DESIGN SPECIALIST Office Visit [facility] Pulmonology & Sleep Medicine [facility] [address] [place] [phone] Miranda Jerez APRN, CHAIRMAN CEO #[address] [address] 10/09/2025 8:00 AM PIPING DESIGN SPECIALIST Hospital Encounter [facility] Gi Lab Periop 1 [place] [address] See Monreal MD [address] [address] 10/09/2025 8:00 AM PIPING DESIGN SPECIALIST - 10/09/2025 8:30 AM PIPING DESIGN SPECIALIST [facility]iop 1 [facility] [address] See Monreal MD 2 [facility] [address] [address] EGD 01/02/2026 2:20 PM CDT Office Visit [facility] [address] [place] [address] Azul Bolaños PAC [address] [place] [address] Scheduled Procedures Name Priority Associated Diagnoses Date/Ti me EGD GASTRIC REFLUX 10/09/2025 8:00 AM PIPING DESIGN SPECIALIST documented as of this encounter Visit Diagnoses Not on filedocumented in this encounter Additional Health Concerns Infection Onset Date Last Indicated Resolved Time COVID - 19 01/11/2022 01/11/2022 01/31/2022 12:1 7 AM CDT COVID - 19 08/16/2023 08/16/2023 08/26/2023 12:1 6 AM PIPING DESIGN SPECIALIST C. difficile Rule-Out 10/19/2024 10/19/20242024 12:16 AM PIPING DESIGN SPECIALIST COVID - 19 05/13/2025 05/13/2025 05/13/2025 11:5 1 AM CDT Respiratory Rule-Out 05/13/2025 05/13/2025 025 12:33 PM CDT Respiratory Rule-Out 08/27/2025 08/27/2025 025 3:34 PM PIPING DESIGN SPECIALIST Assessment Noted Time PHQ-9 Depression Total Score: 0 02/13/20 8:59 AM CDT documented as of this encounter Care Teams Program Review Director Relationship Specialty Start Date End Date Azul Bolaños PAC [address] [place] [address] PCP - General Physician Hybrid Derivatives Trader 11/25/16 Luly Washington APRN, CHAIRMAN CEO [address] [place] [address] Obstetrics & Gynecology 02/09/21 Jensen Reddy MD [address] [place] [address] Consulting Physician Obstetrics & Gynecology 07/05/22 Belinda Short APRN, CHAIRMAN CEO [address] [place] [address] Nurse Practitioner Advanced Practice Nurse 09/02/23 [place] [address] [place] [address] Consulting Physician Medical Oncology 06/20/23 Brain May MD #[address] [address] Consulting Physician General Surgery 08/31/24 Pilo Gutiérrez MD [address] [address] Consulting Physician General Surgery 05/28/25 documented as of this encounter
--- OUTSIDE RECORDS SUMMARY | 2025-09-03 06:01 | XMS_ITS | Encounter Summary ---
Author Organization [facility] Address [address] [place] [address] Phone Care Team Providers Care Level Vial Inspector And Tester Name Role Phone Azul Bolaños Primary Care Provider + Luly Washington APRN, [employer] Unavailable [phone] Jensen Reddy MD Unavailable [phone] Belinda Short APRN, [employer] Unavailable Andrew Ramos MD Unavailable Brain May MD Unavailable Pilo Gutiérrez MD Unavailable [phone] Reason for Visit * Reason Comments Medication Refill Encounter Details Date Type Department Care Team (Late st Contact Info) Description 02/12/2021 Refill [facility] [address] [place] [address] Azul Bolaños PAC [address] [place] [address] Medication Refill Social History Tobacco Use Types [...] have Coronavirus / COVID-19? No / Unsure 02/09/2021 1:46 PM CDT documented as of this encounter Miscellaneous Notes * Telephone Encounter - Blanca Barbour RN - 02/12/2021 11:30 AM CDT Per nursing clinical judgement, provider to review and approve the medication(s) order(s) if appropriate. Requested Prescriptions Pending Prescriptions Disp Refills famotidine (PEPCID) 20 MG Tablet [Pharmacy Med Name: Famotidine 20MG TABS] 56 Tablet 0 Sig: TAKE 1 TABLET BY MOUTH TWICE A DAY NEEDED [facility] G[facility]: Antiulcer - H2 Antagonists Passed - 02/12/2021 8:31 AM Passed - Valid encounter within last 12 months Past Office Visits Recent Outpatient Visits 3 days ago Well adult exam [facility] - Azul Ghosh PAC 4 months ago [facility]ough [facility] 6 months ago Iron deficiency anemia due to sideropenic dysphagia [facility] Azul Ghosh PAC 1 year ago Hemoglobin C disease (HCC) [facility] Azul Connelly PAC 1 year ago Breast pain [facility] Azul Connelly PAC Upcoming Appointments MATERNAL CHILD NURSE - Recent and Past Visits Recent Visits Date Type Provider Dept 02/09/21 Office Visit Azul Bolaños PAC [facility] [place] 10/09/20 Telemedicine Azul Bolaños PAC [facility] 07/22/20 Office Visit Azul Bolaños PAC [facility] Showing recent visits within past 460 days with a meds authorizing provider and meeting all other requirements Future Appointments No visits were found meeting these conditions. 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 [facility] Azul Ghosh PAC 1 year ago Hemoglobin C disease (HCC) [facility] Azul Ghosh PAC 1 year ago Breast pain [facility] Azul Ghosh PAC Upcoming Appointments MATERNAL CHILD NURSE - Recent and Past Visits Recent Visits Date Type Provider Dept 02/09/21 Office Visit Azul Bolaños PAC [facility] 10/09/20 Telemedicine Azul Bolaños PAC [facility] 07/22/20 Office Visit Azul Bolaños PAC [...] (Latest Contact Info) Description 09/10/2025 9:40 AM SPECIAL AGENT Immunization [facility] [place] [address] [place] [address] 09/16/2025 9:30 AM SPECIAL AGENT Lab [facility] [address] [place] [address] Mariela Ashley February, PAC [address] [place] [address] Discharge Disposition: Discharged to home or Selfcare 09/23/2025 9:20 AM SPECIAL AGENT Office Visit [facility] [address] [place] [address] Mariela Ashley February, PAC [address] [place] [address] Discharge Disposition: Discharged to home or Selfcare 09/23/2025 10:30 AM SPECIAL AGENT Office Visit [facility] - Pulmonology & Sleep Medicine [facility] [address] [place] [address] Miranda Jerez APRN, [employer] [address] [address] 10/09/2025 8:00 AM SPECIAL AGENT Hospital [facility] [address] [place] [address] See Monreal MD [address] [address] 10/09/2025 8:00 AM SPECIAL AGENT - 10/09/2025 8:30 AM SPECIAL AGENT Surgery [facility] [address] [address] [place] [address] See Monreal MD [address] [address] EGD 01/02/2026 2:20 PM CDT Office Visit [facility] [address] [place] [address] Azul Bolaños PAC [address] [place] [address] Scheduled Procedures Name Priority Associated Diagnoses Date/Ti me EGD GASTRIC REFLUX 10/09/2025 8:00 AM SPECIAL AGENT documented as of this encounter Visit Diagnoses Not on filedocumented in this encounter Additional Health Concerns Infection Onset Date Last Indicated Resolved Time COVID - 19 01/11/2022 01/11/2022 01/31/2022 12:1 7 AM CDT COVID - 19 08/16/2023 08/16/2023 08/26/2023 12:1 6 AM SPECIAL AGENT C. difficile Rule-Out 10/19/2024 10/19/20242024 12:16 AM SPECIAL AGENT COVID - 19 05/13/2025 05/13/2025 05/13/2025 11:5 1 AM CDT Respiratory Rule-Out 05/13/2025 05/13/2025 025 12:33 PM CDT Respiratory Rule-Out 08/27/2025 08/27/2025 025 3:34 PM SPECIAL AGENT Assessment Noted Time PHQ-9 Depression Total Score: 0 02/13/20 8:59 AM CDT documented as of this encounter Care Teams Level Vial Inspector And Tester Relationship Specialty Start Date End Date Azul Bolaños PAC [address] [place] [address] PCP - General Physician Head Of Commission Department 11/25/16 Luly Washington APRN, [employer] [address] [place] [id number] Obstetrics & Gynecology 02/09/21 Jensen Reddy MD [address] [place] [address] Consulting Physician Obstetrics & Gynecology 07/05/22 Belinda Short APRN, [employer] [address] [facility] [address] Nurse Practitioner Advanced Practice Nurse 09/02/23 Andrew Ramos MD [address] [place] [address] Consulting Physician Medical Oncology 06/20/23 Brain May MD [address] [address] Consulting Physician General Surgery 08/31/24 Pilo Gutiérrez MD 2 [facility] JACQUEL[address] [address] Consulting Physician General Surgery 05/28/25 documented as of this encounter
--- OUTSIDE RECORDS SUMMARY | 2025-09-03 06:02 | XMS_ITS | Clinical Summary ---
Author Organization [facility] Address [address] [place] [address] Phone Care Team Providers Care Laborer [employer] Name Role Phone Azul Bolaños Primary Care Provider + Luly Washington APRN, CONFERENCE CONCIERGE Unavailable [phone] Jensen Reddy MD Unavailable [phone] Belinda Short APRN, CONFERENCE CONCIERGE Unavailable Andrew Ramos MD Unavailable [phone] Brain May MD Unavailable [phone] Pilo Gutiérrez MD Unavailable [phone] Allergies Active Allergy Reactions Criticality Noted Date Comments Aripiprazole Other (see Comments) 08/31/2024 Headache Doxepin Hallucinations Medium 03/15/2025 SI Medications Ferrous Sulfate 142 (45 Fe) MG Tablet Controlled ReleaseIndicati ons:Hemoglobin C disease Take 1 Tablet by mouth daily. 90 Tablet 1 08/23/20 23 Active traZODone (DESYREL) 100 MG TabletIndicatio ns:Insomnia Take 150 mg by mouth nightly. Indications: Trouble Sleeping Active VITAMIN D PO Take 50,000 Units by mouth once a week. Active ergocalciferol (VITAMIN D) 91959 UNIT Capsule once a week. 08/14/20 24 Active hydrOXYzine (ATARAX) 50 MG Tablet Take 50 mg by mouth 2 times daily as needed for Anxiety. 08/31/20 24 Active FLUoxetine (PROZAC) 40 MG CapsuleIndicati ons:Depression, Panic Disorder every morning. Indications: Depression, Panic Disorder 10/12/19 25 Active ondansetron (Zofran) 4 MG Tablet Take 1 Tablet by mouth every 6 hours as needed for Nausea - 1st line. 30 Tablet 10/16/19 25 Active hydroCHLOROthia zide 25 MG Tablet Take 1 Tablet by mouth daily as needed (swelling). 90 Tablet 02/13/20 25 Active folic acid (FOLVITE) 1 MG Tablet TAKE 1 TABLET BY MOUTH DAILY 28 Tablet 5 03/15/20 25 Active Melatonin 5 MG Tablet 1 tablet as needed at bedtime Orally Once a day for 30 days As needed 03/13/20 25 Active Probiotic Product (UP4 PROBIOTICS PO) Take by mouth. Active azelastine (ASTELIN) 0.1 % Solution 2 Sprays by Nasal route 2 times daily. Use in each nostril as directed 30 mL 3 04/09/20 25 Active meclizine (ANTIVERT) 25 MG Tablet TAKE 1 TABLET BY MOUTH THREE TIMES A DAY NEEDED FOR DIZZINESS 60 Tablet 04/22/20 25 Active nicotine polacrilex (NICORETTE) 2 MG Gum Take 1 Each by mouth every 4 hours as needed for Smoking cessation. 60 gum 05/13/20 25 Active fluticasone (FLOVENT HFA) 110 MCG/ACT AerosolIndicati ons:Mild persistent reactive airway disease without complication take 2 Puffs by inhalation 2 times daily. 12 g 3 05/13/20 25 Active Vraylar 3 MG Capsule 1 Capsule daily. 08/30/20 24 Active losartan (COZAAR) 50 MG Tablet TAKE 1 TABLET BY MOUTH DAILY 28 Tablet 5 05/29/20 25 Active Additional Information Patient taking differently:50 mg OralEVERY MORNING, Reported on 08/29/2025 modafinil (PROVIGIL) 100 MG TabletIndicatio ns:Excessive daytime sleepiness Take 1 Tablet by mouth daily. 30 Tablet 3 07/29/20 25 Active albuterol 108 (90 Base) MCG/ACT Aerosol Solution INHALE 2 PUFFS EVERY FOUR HOURS NEEDED FOR WHEEZING OR COUGH 6.7 g 1 08/20/20 Active cetirizine (ZyrTEC) 10 MG Tablet TAKE 1 TABLET BY MOUTH DAILY 28 Tablet 5 08/20/20 Active pantoprazole (PROTONIX) 40 MG Tablet Delayed ResponseIndicat ions:Gastroesop hageal reflux disease, unspecified whether esophagitis present Take 1 Tablet by mouth daily. 90 Tablet 08/20/20 Active valACYclovir (VALTREX) 500 MG Tablet TAKE 1 TABLET BY MOUTH DAILY 28 Tablet 2 08/27/20 Active traZODone (DESYREL) 150 MG TabletIndicatio ns:Insomnia Take 1 Tablet by mouth every evening. Indications: Trouble Sleeping 5 Tablet 08/28/20 Active pantoprazole (PROTONIX) 40 MG Tablet Delayed ResponseIndicat ions:Gastroesop hageal reflux disease, unspecified whether esophagitis present TAKE 1 TABLET BY MOUTH TWICE A DAY 56 Tablet 5 02/21/20 25 025 Discontinued albuterol 108 (90 Base) MCG/ACT Aerosol Solution INHALE 2 PUFFS EVERY FOUR HOURS NEEDED FOR WHEEZING OR COUGH 6.7 g 1 07/17/20 25 025 Discontinued fluconazole (Diflucan) 150 MG Tablet Take 1 Tablet by mouth once for 1 dose. 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 01/19/2017 Anemia, unspecified 12/27/2016 Depression 12/22/2016 Anxiety 12/22/2016 Reactive airway disease with wheezing 12/22/2016 Resolved Problems Problem Noted Date Diagnosed Date Resolved Date Paranoid schizophrenia 05/16/202505/16 Encounters Date Type Department Care Team Description 08/31/2025 [facility] [address] [place] [address] Nancy Gardiner, BACK UP MACHINE OPERATOR Follow-up (Test results) 08/30/2025 Documentation Only [facility] [address] [place] [address] Sophie Lopez RN 08/29/2025 10:40 AM PATIENT ACCESS REPRESENTATIVE Office Visit [facility] Medical [facility] [place] [address] [place] [address] Azul Bolaños, BIJAN Hypertension, unspecified type (Primary Dx); Upper respiratory tract infection, unspecified type Discharge Disposition: Discharged to home or Selfcare 08/29/2025 [facility]phone [facility] [address] [place] [address] Nancy Gardiner, BACK UP MACHINE OPERATOR Follow-up (Test results) 08/29/2025 Results [facility] [address] [place] [address] Carie Alvarado, RENAL CASE MANAGER, CONFERENCE CONCIERGE Molecular, Vaginitis Screen 08/29/2025 Travel 08/28/2025 4:50 PM PATIENT ACCESS REPRESENTATIVE - 08/28/2025 5:11 PM PATIENT ACCESS REPRESENTATIVE [facility] [address] [place] [address] Huang Li, PAC Encounter for medication refill Discharge Disposition: Discharged to home or Selfcare 08/28/2025 3:06 AM PATIENT ACCESS REPRESENTATIVE - 08/28/2025 4:04 AM PATIENT ACCESS REPRESENTATIVE [facility] [address] [place] [address] Eze Duran, DO Insomnia Discharge Disposition: Discharged to home or Selfcare 08/28/2025 Travel 08/27/2025 1:40 PM PATIENT ACCESS REPRESENTATIVE - 08/27/2025 4:58 PM PATIENT ACCESS REPRESENTATIVE [facility] [address] [place] [address] Ralph Lema MD Keen, Christie Marie, APRN, CONFERENCE CONCIERGE URI (upper respiratory infection) Discharge Disposition: Discharged to home or Selfcare 08/27/2025 Travel 08/26/2025 [facility] [place] [address] [place] [address] See Monreal MD 08/26/2025 [facility] [address] [place] [address] Azul Bolaños, PAC Medication Refill 08/19/2025 [facility] [place] [place] [address] Azul Bolaños, PAC Medication Refill 07/24/2025 [facility]phone [facility] [place] [address] [place] [address] Miranda Jerez APRN, CONFERENCE CONCIERGE Prior Authorization (Armodafinil 150mg) 07/22/2025 4:27 PM CDT - 07/22/2025 11:59 PM CDT [facility] [address] [place] [address] Azul Bolaños, PAC Discharge Disposition: Discharged to home or Selfcare 07/22/2025 Travel 07/19/2025 Results Follow-Up [facility] Pulmonology & Sleep Medicine [facility] [address] [place] [address] Miranda Jerez APRN, KHANG MULTIPLE SLEEP LATENCY TEST WITHOUT CPAP 07/19/2025 Telephone [facility] [address] [place] [address] See Monreal MD Procedure; Appointment 07/19/2025 Results Follow-Up [facility] [address] [place] [address] Kelli Cho APRN, CNP VAGINITIS SCREEN, MOLECULAR, CHLAMYDIA & GC DNA PROBE ADULT, HSV TYPE I IGG ANTIBODY, HSV TYPE II IGG ANTIBODY 07/18/2025 8:45 AM CDT Office Visit [facility] [address] [place] [address] Kelli Cho APRN, KHANG Screening examination for STD (sexually transmitted disease) (Primary Dx); Vaginal discharge Discharge Disposition: Discharged to home or Selfcare 07/17/2025 Travel 07/16/2025 [facility] [place] [address] Azul Bolaños PAC Medication Refill 07/12/2025 Travel 07/11/2025 7:30 AM CDT [facility] [address] [place] [address] Miranda Jerez APRN, KHANG Excessive daytime sleepiness Discharge Disposition: Discharged to home or Selfcare 07/11/2025 Telephone [facility] [address] [place] [address] See Monreal MD 07/11/2025 Travel 07/10/2025 7:30 PM CDT Sleep Lab [facility] Sleep Lab 1 [place] [address] Miranda Jerez APRN, KHANG Excessive daytime sleepiness Discharge Disposition: Discharged to home or Selfcare 07/10/2025 Telephone [facility] Gastroenterology [facility] [address] [place] [address] Pilo Gutiérrez MD Procedure; Appointment 07/10/2025 Travel 07/03/2025 Documentation [facility] [address] [place] [address] Rimma Terrazas, PT 07/01/2025 4:40 PM CDT Office Visit [facility] - Family Medicine [facility] [address] [place] [address] Azul Bolaños PAC Hypertension, unspecified type (Primary Dx); Encounter for immunization; Screening for diabetes mellitus; Intermittent asthma, unspecified asthma severity, unspecified whether complicated Discharge Disposition: Discharged to home or Selfcare 07/01/2025 Travel 06/26/2025 [facility]phone [facility] [address] [place] [address] Cody Senior, PT Appointment (Same-day cancel.) 06/25/2025 9:30 AM CDT Office Visit [facility] - Pulmonology & Sleep Medicine [facility] [address] [place] [address] Miranda Jerez APRN, CNP Excessive daytime sleepiness; Class 2 obesity due to excess calories without serious comorbidity with body mass index (BMI) of 37.0 to 37.9 in adult; Mild intermittent asthma with acute exacerbation; Personal history of tobacco use Discharge Disposition: Discharged to home or Selfcare 06/25/2025 Transcribe Orders [facility] Sleep Lab [address] [place] [address] Miranda Jerez APRN, CNP Excessive daytime sleepiness (Primary Dx) 06/25/2025 Transcribe Orders [facility] [address] [place] [address] Miranda Jerez, RENAL CASE MANAGER, KHANG Excessive daytime sleepiness (Primary Dx) 06/25/2025 Travel 06/24/2025 Travel from Last 3 Months Immunizations Immunization Administration Dates Next Due Hepatitis B Vaccine, Pediatric/adolescent 01/15/2000 Influenza Vaccine, Quadrivalent, PF 05/27,09/13/2022,09/08/2021,07/22,06/13/2018,06/02/2016 Influenza,Split Virus,Trivalent,Injectable,PF 07/01/2025 Pneumococcal Vaccine - 13 Valent 05/07/2021 Pneumococcal Vaccine Adult - 23 Valent 8 Pneumococcal conjugate PCV20 , polysaccharide [id number] conjugate, adjuvant, PF 12/04/2024 TB Skin Test 02/09/2021 TD VACCINE 01/15/2000 Family History Medical History Relation Name Comments No Known Problems Brother Anemia Father Jaspal Reynoso Cancer Father Jaspal Reynoso Colon Cancer Father Jaspal Reynoso Diabetes Father Jaspal Reynoso Father is now a diabetic Breast Cancer Maternal Aunt Dot Cancer Maternal Aunt Dot Breast Cancer Maternal Grandmother [place] Cancer Maternal Grandmother [place] Diabetes Mother Monisha Esposito Diabetic Heart Attack Mother Monisha Esposito Hypertension Mother Monisha Esposito Stroke Mother Monisha Esposito No Known Problems Sister No Known Problems Son Relation Name Status Comments Brother Alive Father Jaspal Reynoso Alive Maternal Aunt Dot Maternal Grandmother [place] Mother Monisha Esposito Alive Sister Alive Son Alive Social History Tobacco Use Types Packs/Day Years Used Date Smoking Tobacco: Former Cigars Smokeless Tobacco: Never Tobacco Cessation:Counseling Given: Yes Alcohol Use Standard Drinks/Week Comments Not Currently 1 (1 standard drink = 0.6 oz pur e alcohol) Occasionally drinker [facility] Utilities Answer Date Recorded In the past 12 months has [employer] gas, oil, or water company threatened to shut off services in your home? No 12/04/2024 Social Connection and Isolation Panel Answer Date Recorded In a typical week, how many times do you talk on the phone with family, friends, or neighbors? More than three times a week 12/04/2024 How often do you get togethe r with friends or relatives? Three times a week 12/04/2024 How often do you attend [facility] or restorationist services? 1 to 4 times per year 12/04/2024 Do you belong to any clubs o r organizations such as voodoo groups, unions, fraternal or athletic groups, or school groups? No 12/04/2024 How often do you attend meet ings of the clubs or organizations you belong to? Patient declined 12/04/2024 Are you , , di vorced, , never , or living with a partner? Never 12/04/2024 AUDIT-C Answer Date Recorded Q1: How often do you have a drink containing alcohol? Never 12/04/2024 Q2: How many drinks containi ng alcohol do you have on a typical day when you are drinking? Patient does not drink Q3: How often do you have si x or more drinks on one occasion? Weekly 12/04/2024 Overall Financial Resource Strain (CARDIA) Answe r Date Recorded How hard is it for you to pa y for the very basics like food, housing, medical care, and heating? Somewhat hard 12/04/2024 PHQ-2 Answer Date Recorded Total Score - Questions 1-9 0 01/25 [facility] - Occupational Stress Questionnaire Answer Date Recorded Do you feel stress - tense, restless, nervous, or anxious, or unable to sleep at night because your mind is troubled all the time - these days? Not at all 12/04/2024 Exercise Vital Sign Answer Date Recorde d On average, how many days pe r week do you engage in moderate to strenuous exercise (like a brisk walk)? 3 days 12/04/2024 On average, how many minutes do you engage in exercise at this level? 40 min 12/04/2024 Hunger Vital Sign Answer Date Recorded Within the past 12 months, y ou worried that your food would run out before you got the money to buy more. Sometimes true Within the past 12 months, t he food you bought just didn't last and you didn't have money to get more. Sometimes true 07/2025 PRAPARE - Transportation Answer Date Re corded In the past 12 months, has l ack of transportation kept you from medical appointments or from getting medications? Yes 11/24 In the past 12 months, has l ack of transportation kept you from meetings, work, or from getting things needed for daily living? Yes 12/04/2024 Housing Stability Vital Sign Answer Rah e [...] place to sleep or slept in a [place] (including now)? No 10/11/2023 Housing Stability Vital Sign Answer Rah e Recorded In the last 12 months, was t here a time when you were not able to pay the mortgage or rent on time? No 12/04/2024 In the past 12 months, how m any times have you moved where you were living? 0 12/04/2024 At any time in the past 12 m [facility], were you homeless or living in a [place] facility (including now)? No 12/04/2024 AUDIT-C Answer Date Recorded Q1: How often do you have a drink containing alcohol? Never 05/16/2025 Q2: How many drinks containi ng alcohol do you have on a typical day when you are drinking? Patient does not drink Q3: How often do you have si x or more drinks on one occasion? Never 05/16/2025 Education Answer Date Recorded What is the highest level of school you have completed or the highest degree you have received? Some college, no degree 04/30/2021 Sexually Active Control Partners Comments Not Currently Abstinence, Male Condom Male Comments No Sex and Gender Information Value Date Recorded Sex Assigned at Not on file Legal Sex Female 7:38 PM CDT Gender Identity Not on file Sexual Orientation Not on file Last Filed Vital Signs Vital Sign Reading Time Taken Comments Blood Pressure 128/84 08/29/2025 10:34 AM PATIENT ACCESS REPRESENTATIVE Pulse 67 08/29/2025 10:34 AM PATIENT ACCESS REPRESENTATIVE Temperature 36.2 C (97.1 F) 08/29/2025 10:34 AM PATIENT ACCESS REPRESENTATIVE Respiratory Rate 16 08/29/2025 10:34 AM PATIENT ACCESS REPRESENTATIVE Oxygen Saturation 99% 08/29/2025 10:34 AM PATIENT ACCESS REPRESENTATIVE Inhaled Oxygen Concentration - - Weight 113.4 kg (250 lb) 08/29/2025 10:34 AM PATIENT ACCESS REPRESENTATIVE Height 165.1 cm (5' 5) 08/29/2025 10:34 AM PATIENT ACCESS REPRESENTATIVE Body Mass Index 41.6 08/29/2025 10:34 AM PATIENT ACCESS REPRESENTATIVE Plan of Treatment Upcoming Encounters Date Type Department Care Team (Latest Contact Info) Description 09/10/2025 9:40 AM PATIENT ACCESS REPRESENTATIVE Immunization [facility] Family Medicine [facility] [address] [place] [address] 09/16/2025 9:30 AM PATIENT ACCESS REPRESENTATIVE [facility] [address] [place] [address] Mariela Ashley Mitzi, PAC [address] [place] [address] Discharge Disposition: Discharged to home or Selfcare 09/23/2025 9:20 AM PATIENT ACCESS REPRESENTATIVE [facility] [address] [place] [address] Mariela Ashley Mitzi, PAC [address] [place] [address] Discharge Disposition: Discharged to home or Selfcare 09/23/2025 10:30 AM PATIENT ACCESS REPRESENTATIVE Office Visit [facility] Pulmonology & Sleep Medicine [facility] [address] [place] [address] Miranda Jerez APRN, CONFERENCE CONCIERGE [address] [address] 10/09/2025 8:00 AM PATIENT ACCESS REPRESENTATIVE [facility] [address] [address] [place] [address] See Monreal MD [address] [address] 10/09/2025 8:00 AM PATIENT ACCESS REPRESENTATIVE - 10/09/2025 8:30 AM PATIENT ACCESS REPRESENTATIVE Surgery [facility] [address] [place] [address] See Monreal MD 2 [facility] [address] [address] EGD 01/02/2026 2:20 PM CDT Office Visit [facility] - Family Medicine [facility] [address] [place] [address] Azul Bolaños PAC [address] [place] [address] Scheduled Procedures Name Priority Associated Diagnoses Date/Ti me EGD GASTRIC REFLUX 10/09/2025 8:00 AM PATIENT ACCESS REPRESENTATIVE Health Maintenance Due Date Last Done Comments TdaP Immunization 1984 Varicella Immunization (1 of 2 - 13+ 2-dose series) 1997 Hepatitis B Immunization (2 of 3 - 3-dose series) 02/12/2000 01/15/2000 Pap Smear 01/13/2025 01/13/2022 SARS-COV-2 Immunization ( - season) 2025 07/17/2021, 05/28/2021 Mammogram 11/22/2025 11/22/2024, 02/24, 12/05/2017 Cervical Cancer Screening (CCS) 01/13/2027 HPV/Cotest 01/13/2027 01/13/2022 Respiratory Syncytial Virus (RSV) Immunization (Adult) (1 - 1-dose 75+ series) 2059 Hepatitis C Virus (HCV) Screening Completed 03/12/2019 Discussion re Starting/Frequency of Mammograms Completed 11/22/2024, 03/09/2019, 12/05/2017 Pneumococcal Immunization Combined Completed 12/04/2024, 05/07/2021, 06/13/2018 Influenza Immunization Completed , 06/07/2023, 09/13/2022, Additional history exists Human Papillomavirus (HPV) Immunization (No Doses Required) Completed Meningococcal Immunization (ACWY) Aged Out No longer eligible based on patient's age to complete this topic Rotavirus Immunization Aged Out No lo nger eligible based on patient's age to complete this topic Procedures Procedure Name Priority Date/Time Associated Diagnosis Comments VAGINITIS SCREEN, MOLECULAR STAT 08/27/2025 2:46 PM PATIENT ACCESS REPRESENTATIVE POCT URINE HCG () STAT 08/27/2025 2:45 PM PATIENT ACCESS REPRESENTATIVE CHLAMYDIA & GC DNA PROBE STAT 08/27/2025 2:45 PM PATIENT ACCESS REPRESENTATIVE URINALYSIS REFLEX IF INDICATED BY ABNORMAL RESULTS STAT 08/27/2025 2:45 PM PATIENT ACCESS REPRESENTATIVE CHLAMYDIA & GC DNA PROBE ADULT STAT 08/27/2025 2:45 PM PATIENT ACCESS REPRESENTATIVE SYPHILIS IGG/IGM SCREEN W/REFLEX STAT 08/27/2025 2:37 PM PATIENT ACCESS REPRESENTATIVE HCG BETA SUBUNIT SERUM QUANT STAT 08/27/2025 2:37 PM PATIENT ACCESS REPRESENTATIVE GROUP A STREP BY PCR STAT 08/27/2025 2:37 PM PATIENT ACCESS REPRESENTATIVE CBC WITH AUTO DIFFERENTIAL STAT 08/27/2025 2:36 PM PATIENT ACCESS REPRESENTATIVE CMP (COMPREHENSIVE METABOLIC PANEL) STAT 08/27/2025 2:36 PM PATIENT ACCESS REPRESENTATIVE COMPLETE BLOOD COUNT (CBC) WITH DIFF STAT 08/27/2025 2:36 PM PATIENT ACCESS REPRESENTATIVE RSV,SARS-COV-2,INFLUENZ A A&B BY PCR STAT 08/27/2025 2:36 PM PATIENT ACCESS REPRESENTATIVE ADULT TRANS THORACIC ECHO 2D COMPLETE Routine 07/22/2025 5:26 PM CDT Murmur, cardiac CHLAMYDIA & GC DNA PROBE Routine 07/18/2025 2:37 PM CDT Screening examination for STD (sexually transmitted disease) CHLAMYDIA & GC DNA PROBE ADULT Routine 07/18/2025 2:37 PM CDT Screening examination for STD (sexually transmitted disease) VAGINITIS SCREEN, MOLECULAR Routine 07/18/2025 2:35 PM CDT Screening examination for STD (sexually transmitted disease) HSV TYPE II IGG ANTIBODY Routine 07/18/2025 9:32 AM CDT Screening examination for STD (sexually transmitted disease) HSV TYPE I IGG ANTIBODY Routine 07/18/20 9:32 AM CDT Screening examination for STD (sexually transmitted disease) HERPES SIMPLEX 1 & 2 ANTIBODIES IGG Routine 07/18/2025 9:32 AM CDT Screening examination for STD (sexually transmitted disease) CHLAMYDIA & GC DNA PROBE Routine 07/18/2025 9:32 AM CDT Screening examination for STD (sexually transmitted disease) CHLAMYDIA & GC DNA PROBE ADULT Routine 07/18/2025 9:32 AM CDT Screening examination for STD (sexually transmitted disease) MULTIPLE SLEEP LATENCY TEST WITHOUT CPAP Routine 07/11/2025 Excessive daytime sleepiness POLYSOMNOGRAPHY 4 OR MORE PARAMETERS Routine 07/11/2025 Excessive daytime sleepiness POCT GLYCOSYLATED HEMOGLOBIN Routine 07/01/2025 4:39 PM CDT Screening for diabetes mellitus QUIRINO DIAG BILATERAL DIGITAL W CAD W ABBY Routine 11/22/2024 9:41 AM PATIENT ACCESS REPRESENTATIVE Breast pain Persistent nodularity of breast HUMAN PAPILLOMA VIRUS (HPV) Routine 01/13/2022 10:41 AM CDT Well woman exam PATHOLOGY CYTOLOGY CANOE INSPECTOR FINAL Routine 10:41 AM CDT Well woman exam HEPATITIS C ANTIBODY Routine 03/12/2019 12:00 PM CDT Elevated liver enzymes from Last 3 Months or Most Recently Relevant to Health Maintenance Results * (ABNORMAL) Molecular, Vaginitis Screen (08/27/2025 2:46 PM PATIENT ACCESS REPRESENTATIVE) Only the most recent of2 resultswithin the time period is included. TRICHOMONAS NOT DETECTED NOT DETECTED 08/27/2025 10:51 PM PATIENT ACCESS REPRESENTATIVE [facility] BACTERIAL VAGINOSIS NOT DETECTED NOT DETECTED 08/27/2025 10:51 PM PATIENT ACCESS REPRESENTATIVE [facility] SERA DETECTED(A) NOT DETECTED 08/27/2025 10:51 PM PATIENT ACCESS REPRESENTATIVE [facility] Comment: Sera group DNA Detected with the following possible Sera species; Sera albicans and/or Sera tropicalis and/or Sera parapsilosis and/or Sera dubliniensis SERA GLABRATA NOT DETECTED NOT DETECTED 08/27/2025 10:51 PM PATIENT ACCESS REPRESENTATIVE [facility] SERA KRUSEI NOT DETECTED NOT DETECTED 08/27/2025 10:51 PM PATIENT ACCESS REPRESENTATIVE [facility] Other VAGINAL STRUCTURE / Unknown Non-Phlebotomy Collection / Unknown 08/27/2025 2:46 PM PATIENT ACCESS REPRESENTATIVE 08/27/2025 3:01 PM PATIENT ACCESS REPRESENTATIVE Carie Alvarado APRN, CNP MICROBIOLOGY - GEN ERAL ORDERABLES Final Result [facility] [address] [place] [address], * CHLAMYDIA & GC DNA PROBE ADULT (08/27/2025 2:45 PM PATIENT ACCESS REPRESENTATIVE) Only the most recent of3 resultswithin the time period is included. CHLAMYDIA DNA NEGATIVE NEGATIVE 08/28/2025 12:22 AM PATIENT ACCESS REPRESENTATIVE [facility] Comment: Presumed negative for C. trachomatis. A negative result does not preclude C. trachomatis infection because results are dependent on adequate specimen collection, absence of inhibitors, and sufficient DNA to be detected. This test was performed using DAVID [id number] Real Time PCR. GC DNA NEGATIVE NEGATIVE 08/28/2025 12:22 AM PATIENT ACCESS REPRESENTATIVE [facility] Comment: Presumed negative for N. gonorrhoeae. A negative result does not preclude N. gonorrhoeae infection because results are dependent on adequate specimen collection, absence of inhibitors, and sufficient DNA to be detected. This test was performed using DAVID [id number] Real Time PCR. Other URINE / Unknown Non-Phlebotomy Collection / Unknown 08/27/2025 2:45 PM PATIENT ACCESS REPRESENTATIVE 08/27/2025 3:02 PM PATIENT ACCESS REPRESENTATIVE us Carie Alvarado APRN, CNP MICROBIOLOGY - GEN ERAL ORDERABLES Final Result [facility] [address] [place] [address], * (ABNORMAL) Urinalysis w/ Reflex (08/27/2025 2:45 PM PATIENT ACCESS REPRESENTATIVE) SPECIFIC GRAVITY 1.010 1.003 - 1.030 08/27/2025 3:53 PM PATIENT ACCESS REPRESENTATIVE [facility] URINE PH 6.0 5.0 - 9.0 08/27/2025 3:53 PM PATIENT ACCESS REPRESENTATIVE [facility] WBC ESTERASE 25 /ul(A) Negative 08/27/2025 3:53 PM PATIENT ACCESS REPRESENTATIVE [facility] NITRITE Negative Negative 08/27/2025 3:53 PM PATIENT ACCESS REPRESENTATIVE [facility] PROTEIN, RANDOM URINE Negative Negative 08/27/2025 3:53 PM PATIENT ACCESS REPRESENTATIVE [facility] URINE GLUCOSE, QUAL Negative Negative 08/27/2025 3:53 PM PATIENT ACCESS REPRESENTATIVE [facility] URINE KETONES Negative Negative 08/27/2025 3:53 PM PATIENT ACCESS REPRESENTATIVE [facility] UROBILINOGEN Normal Normal mg/dL 08/27/2025 3:53 PM PATIENT ACCESS REPRESENTATIVE [facility] URINE BLOOD Negative Negative jackelin/ul 08/27/2025 3:53 PM PATIENT ACCESS REPRESENTATIVE [facility] URINALYSIS COLOR Yellow 08/27/20 25 3:53 PM PATIENT ACCESS REPRESENTATIVE [facility] URINALYSIS CLARITY Clear 08/27/2025 3:53 PM PATIENT ACCESS REPRESENTATIVE [facility] WBC (Urine) 0-5 Negative, 0-5 /hpf 08/27/2025 3:53 PM PATIENT ACCESS REPRESENTATIVE [facility] URINE RBC'S Negative Negative, 0-2 /hpf 08/27/2025 3:53 PM PATIENT ACCESS REPRESENTATIVE [facility] EPITHELIAL CELLS Large amount squamous /lpf 08/27/2025 3:53 PM PATIENT ACCESS REPRESENTATIVE [facility] BACTERIA, URINE Negative Negative /hpf 08/27/2025 3:53 PM PATIENT ACCESS REPRESENTATIVE [facility] Urine URINE SPECIMEN / Unknown Non-Phlebotomy Collection / Unknown 08/27/2025 2:45 PM PATIENT ACCESS REPRESENTATIVE 08/27/2025 3:02 PM PATIENT ACCESS REPRESENTATIVE us Carie Alvarado APRN, CNP URINE ORDERABLES F inal Result [facility] [address] [place] [address] * POCT Urine HCG () (08/27/2025 2:45 PM PATIENT ACCESS REPRESENTATIVE) Pathologist [facility] POC URINE Negative POC URINE CONTROL Airplane Pilot Pass Urine 08/27/2025 2:45 PM PATIENT ACCESS REPRESENTATIVE us Carie Alvarado APRN, CNP POINT OF CARE TEST ING (MANUAL) Final Result * Syphilis IGG/IGM Screen w/Reflex (08/27/2025 2:37 PM PATIENT ACCESS REPRESENTATIVE) Pathologist [facility] SYPHILIS IGG/IGM Nonreactive Nonreactive 08/27/2025 9:47 PM PATIENT ACCESS REPRESENTATIVE [facility] Blood Venipuncture / Unknown 08/27/2025 2:37 PM PATIENT ACCESS REPRESENTATIVE 08/27/2025 2:47 PM PATIENT ACCESS REPRESENTATIVE us Carie Alvarado APRN, CNP IMMUNOLOGY ORDERAB LES Final Result [facility] [address] [place] [address], * GROUP A STREP BY PCR (08/27/2025 2:37 PM PATIENT ACCESS REPRESENTATIVE) GROUP A STREP BY PCR NOT DETECTED NOT DETECTED 08/27/2025 3:18 PM PATIENT ACCESS REPRESENTATIVE [facility] Swab STRUCTURE OF ANTERIOR REGION OF NECK / Unknown Non-Phlebotomy Collection / Unknown 08/27/2025 2:37 PM PATIENT ACCESS REPRESENTATIVE 08/27/2025 2:47 PM PATIENT ACCESS REPRESENTATIVE Carie Alvarado APRN, KHANG MICROBIOLOGY - GEN ERAL ORDERABLES Final Result Performing Organization Address [facility] Co de Phone Number [facility] [address] [place] [address] * HCG Beta Subunit Serum Quant (08/27/2025 2:37 PM PATIENT ACCESS REPRESENTATIVE) [facility] HCG BETA SUBUNIT, QUANT <2.42 0.00 - 5.00 mIU/mL 08/27/2025 4:03 PM PATIENT ACCESS REPRESENTATIVE [facility] Blood Venipuncture / Unknown 08/27/2025 2:37 PM PATIENT ACCESS REPRESENTATIVE 08/27/2025 3:46 PM PATIENT ACCESS REPRESENTATIVE Narrative [facility] - 08/27/2025 4:03 PM PATIENT ACCESS REPRESENTATIVE HCG levels should be interpreted with consideration given to the patient's clinical condition. No currently available hCG test is approved by the FDA for use as a tumor marker. hCG results <5 mIU/mL are considered negative. Weeks post LMP hCG range (mIU/mL) 1 - 10 202 - 231,000 11 - 15 22,536 - 234,990 16 - 22 8,007 - 50,064 23 - 40 1,600 - 49,413 The concentration of hCG in maternal serum rises rapidly in early , hCG levels less than 25 mIU/mL do not exclude . A further sample should be tested after 48 hours if is suspected. Heterophilic antibodies present in the serum of some patients may cause a false positive result in the assay. Before making a diagnosis of malignancy based on elevated hCG, confirm results with a urine hCG. us Carie Alvarado APRN, CONFERENCE CONCIERGE CHEMISTRY ORDERABL ES Final Result Performing Organization Address [facility]/ZIP Co de Phone Number [facility] [address] [place] [address] * FRANCES-COV-2 Flu RSV - (Quad PCR) (08/27/2025 2:36 PM PATIENT ACCESS REPRESENTATIVE) Pathologist [facility] FLU A Negative Negative, Error 08/27/2025 3:34 PM PATIENT ACCESS REPRESENTATIVE [facility] FLU B Negative Negative 08/27/2025 3:34 PM PATIENT ACCESS REPRESENTATIVE [facility] RESP SYNC VIRUS Negative Negative 3:34 PM PATIENT ACCESS REPRESENTATIVE [facility] SARSCOV2 NOT DETECTED (Reference Range for this test is Not Detected) 08/27/2025 3:34 PM PATIENT ACCESS REPRESENTATIVE [facility] Comment:This test was perfor med by a Reverse Tuber Machine Cutter PCR Method. Nasal NASOPHARYNGEAL SWAB / Unknown Non-Phlebotomy Collection / Unknown 08/27/2025 2:36 PM PATIENT ACCESS REPRESENTATIVE 08/27/2025 2:47 PM PATIENT ACCESS REPRESENTATIVE Carie Alvarado APRN, CONFERENCE CONCIERGE MICROBIOLOGY - GEN ERAL ORDERABLES Final Result [facility] [address] [place] [address] * (ABNORMAL) CBC with Auto Differential (08/27/2025 2:36 PM PATIENT ACCESS REPRESENTATIVE) [facility] WBC 6.58 4.00 - 12.00 10(3)/mcL 08/27/2025 2:51 PM PATIENT ACCESS REPRESENTATIVE [facility] RBC 3.65(L) 3.80 - 5.30 10(6)/mcL 08/27/2025 2:51 PM PATIENT ACCESS REPRESENTATIVE [facility] HEMOGLOBIN (HGB) 9.4(L) 12.0 - 15.8 g/dL 08/27/2025 2:51 PM PATIENT ACCESS REPRESENTATIVE [facility] HEMATOCRIT (HCT) 27.4(L) 36.0 - 47.0 % 08/27/2025 2:51 PM PATIENT ACCESS REPRESENTATIVE [facility] MCV 75.1(L) 82.0 - 96.0 fL 08/27/2025 2:51 PM [facility] MCH 25.8(L) 26.0 - 34.0 pg 08/27/2025 2:51 PM [facility] MCHC 34.3 31.0 - 36.0 g/dL 08/27/2025 2:51 PM [facility] PLATELET COUNT 206 140 - 440 10(3)/mcL 08/27/2025 2:51 PM [facility] RDW 16.9(H) 11.8 - 15.5 % 08/27/2025 2:51 PM [facility] MPV 10.5 9.7 - 12.4 fL 08/27/2025 2:51 PM [facility] NEUTROPHILS 64.0 47.0 - 73.0 % 08/27/2025 2:51 PM [facility] LYMPHOCYTES 29.2 18.0 - 42.0 % 08/27/2025 2:51 PM [facility] MONOCYTES 5.6 4.0 - 12.0 % 08/27/2025 2:51 PM [facility] EOSINOPHILS 0.6 0.0 - 5.0 % 08/27/2025 2:51 PM [facility] BASOPHILS 0.3 0.0 - 1.0 % 08/27/2025 2:51 PM [facility] IMMATURE GRANULOCYTE 0.3 0.0 - 0.4 % 08/27/2025 2:51 PM [facility] ABSOLUTE NEUTROPHILS 4.21 1.60 - 7.70 10(3)/mcL 08/27/2025 2:51 PM [facility] ABSOLUTE LYMPHOCYTES 1.92 1.30 - 3.20 10(3)/mcL 08/27/2025 2:51 PM [facility] ABSOLUTE MONOCYTES 0.37 0.20 - 1.00 10(3)/mcL 08/27/2025 2:51 PM [facility] ABSOLUTE EOSINOPHIL 0.04 0.00 - 0.40 10(3)/mcL 08/27/2025 2:51 PM PATIENT ACCESS REPRESENTATIVE [facility] ABSOLUTE BASOPHILS 0.02 0.00 - 0.10 10(3)/mcL 08/27/2025 2:51 PM PATIENT ACCESS REPRESENTATIVE [facility] ABSOLUTE IMMATURE GRANULOCYTE 0.02 0.00 - 0.03 10 (3) mcL. 08/27/2025 2:51 PM PATIENT ACCESS REPRESENTATIVE [facility] NRBC PER 100 WBC 1 08/27/20 2:51 PM PATIENT ACCESS REPRESENTATIVE [facility] Blood Venipuncture / Unknown 08/27/2025 2:36 PM PATIENT ACCESS REPRESENTATIVE 08/27/2025 2:47 PM PATIENT ACCESS REPRESENTATIVE us Carie Alvarado RENAL CASE MANAGER, CONFERENCE CONCIERGE HEMATOLOGY ORDERAB LES Final Result [facility] [address] [place] [address] * (ABNORMAL) CMP (08/27/2025 2:36 PM PATIENT ACCESS REPRESENTATIVE) SODIUM 139 136 - 145 mmol/L 08/27/2025 3:40 PM PATIENT ACCESS REPRESENTATIVE [facility] POTASSIUM 3.7 3.5 - 5.1 mmol/L 08/27/2025 3:40 PM [facility] CHLORIDE 105 98 - 107 mmol/L 08/27/2025 3:40 PM PATIENT ACCESS REPRESENTATIVE [facility] CO2, VENOUS 24 22 - 30 mmol/L 08/27/2025 3:40 PM PATIENT ACCESS REPRESENTATIVE [facility] ANION GAP 13.7 <18.0 mmol/L 08/27/2025 3:40 PM PATIENT ACCESS REPRESENTATIVE [facility] GLUCOSE 91 70 - 99 mg/dL 08/27/2025 3:40 PM PATIENT ACCESS REPRESENTATIVE [facility] BUN 11 5 - 18 mg/dL 08/27/2025 3:40 PM [facility] CREATININE, BLOOD 0.84 0.60 - 1.00 mg/dL 08/27/2025 3:40 PM PATIENT ACCESS REPRESENTATIVE [facility] BUN/CREATININE RATIO 13 12 - 20 ratio 08/27/2025 3:40 PM [facility] TOTAL PROTEIN 7.9 6.0 - 8.0 g/dL 08/27/2025 3:40 PM [facility] ALBUMIN 4.2 3.5 - 5.0 g/dL 08/27/2025 3:40 PM [facility] A/G RATIO 1.1 1.0 - 2.2 08/27/2025 3:40 PM [facility] CALCIUM 8.8 8.7 - 10.5 mg/dL 08/27/2025 3:40 PM [facility] T BILI 2.0(H) 0.2 - 1.2 mg/dL 08/27/2025 3:40 PM [facility] SGOT (AST) 26 <43 U/L 08/27/2025 3:40 PM [facility] SGPT (ALT) 32 <56 U/L 08/27/2025 3:40 PM [facility] ALKALINE PHOSPHATASE 118 40 - 150 U/L 08/27/2025 3:40 PM [facility] GFR, ESTIMATED >60 >=60 08/27/2025 3:40 PM [facility] Comment: Creatinine Clearance is the preferred criteria for selecting drug dose adjustments in renally impaired patients. The GFR is provided as additional pertinent clinical information. GFR is reported in mL/min/1.73 sq m. Calculation based on the 2020 Chronic Kidney Disease Epidemiology Collaboration (CKD-EPI) equation refit without adjustment for race. GFR, EST. >60 >=60 3:40 PM [facility] Comment: Creatinine Clearance is the preferred criteria for selecting drug dose adjustments in renally impaired patients. The GFR is provided as additional pertinent clinical information. GFR is reported in mL/min/1.73 sq m. Calculation based on the 2009 Chronic Kidney Disease Epidemiology Collaboration (CKD-EPI). GFR, EST. NONAFRICAN >60 >=60 08/27/2025 3:40 PM [facility] Comment: Creatinine Clearance is the preferred criteria for selecting drug dose adjustments in renally impaired patients. The GFR is provided as additional pertinent clinical information. GFR is reported in mL/min/1.73 sq m. Calculation based on the 2009 Chronic Kidney Disease Epidemiology Collaboration (CKD-EPI). Blood Venipuncture / Unknown 08/27/2025 2:36 PM PATIENT ACCESS REPRESENTATIVE 08/27/2025 2:47 PM PATIENT ACCESS REPRESENTATIVE us Carie Alvarado RENAL CASE MANAGER, CONFERENCE CONCIERGE CHEMISTRY ORDERABL ES Final Result [facility] [address] [place] [address] * ADULT TRANS THORACIC ECHO 2D COMPLETE (07/22/2025 5:26 PM CDT) AV Peak Grad mmHg 12.96 mmHg RESULTING AGENCY Mean Aortic Valve Gradient (MAVG) 7 mmHg RESULTING AGENCY LV end nuha diam cm 4.5 cm RESULTING AGENCY LV end sys diam cm 2.7 cm RESULTING AGENCY Aortic Root Diam cm 2.4 cm RESULTING AGENCY LA vol index ml/m2 18 ml/m2 RESULTING AGENCY LVOT Peak Charles m/sec 1.4 m/sec RESULTING AGENCY AV Peak Charles m/sec 1.8 m/sec RESULTING AGENCY MV Mean Grad mmHg 3 mmHg RESULTING AGENCY E/A Ratio 2.41 RESULTING AGENCY TR Charles m/sec 1.95 m/sec RESULTI NG AGENCY E/E' 9 RESULTING AGENCY AV Area (VTI) cm2 2.43 cm2 RESULTING AGENCY SEPTUM DIASTOLIC CM 1 cm RESULTING AGENCY PW DIASTOLIC CM 1 cm RESU LTING AGENCY LA VOLUME 38.2 ml RESULTING AGENCY LV EF(estimated)% 63 RESULTING AGENCY Anatomical Region Laterality Modality CARDIO N/A Ultrasound Narrative 07/23/2025 3:47 PM CDT Transthoracic Echocardiography Report (TTE) Patient name ANGELES GARCIA Dennis Elizabeth 1985 Patient ID (UPI) [id number] Indications: Heart murmur. Study Date07/22/2025 Technical quality: Adequate Type of Study: TTE procedure: Adult Trans Thoracic Echo 2D Complete. Priority:RoutineHR: 72 bpmBP: 106/70 mmHg Conclusions Summary - Normal LV size, systolic and diastolic function. Calculated LVEF 63%. - Normal right ventricular cavity size and normal systolic function. - No hemodynamically significant valvular abnormalities Findings Mitral Valve The mitral valve is normal. No evidence of mitral stenosis. No significant mitral regurgitation. Aortic Valve The aortic valve is trileaflet with normal leaflet excursion. There is no evidence of aortic valve stenosis. There is no significant aortic valve insufficiency. Tricuspid Valve The tricuspid valve is normal. There is no evidence of tricuspid stenosis. There is no significant tricuspid regurgitation, only trace. There is no evidence of pulmonary hypertension. Pulmonic Valve Not well visualized, no evidence by Doppler interrogation for significant stenosis or regurgitation. Left Atrium The left atrium size is normal. Left Ventricle - Normal LV size, systolic and diastolic function. Calculated LVEF 63%. Right Atrium The right atrium size is normal. Right Ventricle - Normal right ventricular cavity size and normal systolic function. Pericardial Effusion The pericardium is normal. There is no pericardial effusion visualized. Miscellaneous Aortic root and proximal ascending aorta are normal in size. Atrial septum appears intact. IVC is normal in size and respiratory response. Aortic arch appears normal. Valves Mitral Valve Peak E-Wave: 1.59 m/s Area (continuity): 2.58 cm^2 Peak A-Wave: 0.66 m/s Mean Velocity: 0.74 m/s Peak Gradient: 10.11 mmHg Mean Gradient: 3 mmHg Deceleration Time: 176 msec Tissue Doppler E' Velocity: 0.13 m/s E/E':9 E/A Ratio: 2.41 E/Lat E': 9 E/Med E':12.1 Aortic Valve Area (continuity): 2.43 cm^2 Mean Velocity: 1.21 m/s Area (VTI):2.43 cm^2 Mean Gradient: 7 mmHg Peak Velocity: 1.8 m/s AV VTI: 38.7 cm Peak Gradient: 12.96 mmHg Tricuspid Valve Peak E-Wave: 0.77 m/s Peak Gradient: 2.42 mmHg TR Velocity: 1.95 m/s TR Gradient: 15.21 mmHg Pulmonic Valve Peak Velocity: 1.51 m/s Mean Velocity: 1.07 m/s Peak Gradient: 9.12 mmHg Mean Gradient: 5 mmHg LVOT Peak Velocity: 1.40 m/s Mean Velocity: 0.92 m/s Peak Gradient: 8 mmHg Mean Gradient: 4 mmHg LVOT Diameter: 2 cm LVOT VTI: 29.9 cm Stroke Volume: 94 ml Stroke Volume Index: 43.72 ml/m^2 Structures Left Ventricle Diastolic Dimension: 4.5 cm Systolic Dimension: 2.7 cm Septum Diastolic: 1 cm Septum Systolic: 1.3 cm PW Diastolic: 1 cm PW Systolic: 1.3 cm Diastolic Length: 25.5 cm Systolic Length: 14 cm EF Calculated: 63.39% CI: 3.14 l/min*m^2 CO: 6.76 l/min RWT: 0.44 LV EDV: 78.4 ml FS: 40 % LV EDV Index: 36 m^2 LV Length: 7.34 cm LV ESV: 28.7 ml LVOT Diameter: 2 cm LV ESV Index: 13 m^2 Right Ventricle RVOT (PLAX) diameter:2.7 cm Tissue Doppler RV S': 18.6 TAPSE: 1.65 cm Left Atrium LA Systolic Pressure: 13.23 mmHg LA Area: 14.8 cm^2 LA Volume: 38.2 ml LA Index: 18ml/m^2 Right Atrium RA Area: 11.1 cm^2 Great Vessels Aorta Ascending Aorta: 2.5 cm Aorta Root:2.4 cm Ascending Aorta Index:1.16 cm/m^2 Demographics Age 40 Gender Female Race Black Height 65.51 in. Weight 240.42 lbs. BMI (BSA) 39.38 kg/m^2 (2.15 m^2) Tour Counselor Gerardo Barreto Referring Physician Iris Physician Procedure Note Iris Barreto MD - 07/23/2025 Transthoracic Echocardiography Report (TTE) Patient name ANGELES Collins 1985 Patient ID (UPI) [id number] Indications: Heart murmur. Study Date07/22/2025 Technical quality: Adequate Type of Study: TTE procedure: Adult Trans Thoracic Echo 2D Complete. Priority:RoutineHR: 72 bpmBP: 106/70 mmHg Conclusions Summary - Normal LV size, systolic and diastolic function. Calculated LVEF 63%. - Normal right ventricular cavity size and normal systolic function. - No hemodynamically significant valvular abnormalities Findings Mitral Valve The mitral valve is normal. No evidence of mitral stenosis. No significant mitral regurgitation. Aortic Valve The aortic valve is trileaflet with normal leaflet excursion. There is no evidence of aortic valve stenosis. There is no significant aortic valve insufficiency. Tricuspid Valve The tricuspid valve is normal. There is no evidence of tricuspid stenosis. There is no significant tricuspid regurgitation, only trace. There is no evidence of pulmonary hypertension. Pulmonic Valve Not well visualized, no evidence by Doppler interrogation for significant stenosis or regurgitation. Left Atrium The left atrium size is normal. Left Ventricle - Normal LV size, systolic and diastolic function. Calculated LVEF 63%. Right Atrium The right atrium size is normal. Right Ventricle - Normal right ventricular cavity size and normal systolic function. Pericardial Effusion The pericardium is normal. There is no pericardial effusion visualized. Miscellaneous Aortic root and proximal ascending aorta are normal in size. Atrial septum appears intact. IVC is normal in size and respiratory response. Aortic arch appears normal. Valves Mitral Valve Peak E-Wave: 1.59 m/s Area (continuity): 2.58 cm^2 Peak A-Wave: 0.66 m/s Mean Velocity: 0.74 m/s Peak Gradient: 10.11 mmHg Mean Gradient: 3 mmHg Deceleration Time: 176 msec Tissue Doppler E' Velocity: 0.13 m/s E/E':9 E/A Ratio: 2.41 E/Lat E': 9 E/Med E':12.1 Aortic Valve Area (continuity): 2.43 cm^2 Mean Velocity: 1.21 m/s Area (VTI):2.43 cm^2 Mean Gradient: 7 mmHg Peak Velocity: 1.8 m/s AV VTI: 38.7 cm Peak Gradient: 12.96 mmHg Tricuspid Valve Peak E-Wave: 0.77 m/s Peak Gradient: 2.42 mmHg TR Velocity: 1.95 m/s TR Gradient: 15.21 mmHg Pulmonic Valve Peak Velocity: 1.51 m/s Mean Velocity: 1.07 m/s Peak Gradient: 9.12 mmHg Mean Gradient: 5 mmHg LVOT Peak Velocity: 1.40 m/s Mean Velocity: 0.92 m/s Peak Gradient: 8 mmHg Mean Gradient: 4 mmHg LVOT Diameter: 2 cm LVOT VTI: 29.9 cm Stroke Volume: 94 ml Stroke Volume Index: 43.72 ml/m^2 Structures Left Ventricle Diastolic Dimension: 4.5 cm Systolic Dimension: 2.7 cm Septum Diastolic: 1 cm Septum Systolic: 1.3 cm PW Diastolic: 1 cm PW Systolic: 1.3 cm Diastolic Length: 25.5 cm Systolic Length: 14 cm EF Calculated: 63.39% CI: 3.14 l/min*m^2 CO: 6.76 l/min RWT: 0.44 LV EDV: 78.4 ml FS: 40 % LV EDV Index: 36 m^2 LV Length: 7.34 cm LV ESV: 28.7 ml LVOT Diameter: 2 cm LV ESV Index: 13 m^2 Right Ventricle RVOT (PLAX) diameter:2.7 cm Tissue Doppler RV S': 18.6 TAPSE: 1.65 cm Left Atrium LA Systolic Pressure: 13.23 mmHg LA Area: 14.8 cm^2 LA Volume: 38.2 ml LA Index: 18ml/m^2 Right Atrium RA Area: 11.1 cm^2 Great Vessels Aorta Ascending Aorta: 2.5 cm Aorta Root:2.4 cm Ascending Aorta Index:1.16 cm/m^2 Demographics Age 40 Gender Female Race Black Height 65.51 in. Weight 240.42 lbs. BMI (BSA) 39.38 kg/m^2 (2.15 m^2) Tour Counselor Gerardo Barreto Referring Physician Iris Physician us Azul Bolaños PAC IMG ECHO ORDERABLES Edit ed Result - Final * HSV TYPE II IGG ANTIBODY (07/18/2025 9:32 AM CDT) HSV TYPE 2 IGG AB <0.2 <1.1 AI 07/18/2025 8:42 PM CDT [facility] Comment: <0.9 Negative. No detectable HSV-2 IgG antibody. 0.9 - 1.0 Equivocal >=1.1 Positive Antibody testing was performed by multiplex flow immunoassay on the [employer] platform. Blood Venipuncture / Unknown 07/18/2025 9:32 AM CDT 07/18/2025 9:56 AM CDT us Kelli Cho RENAL CASE MANAGER, CONFERENCE CONCIERGE CHEMISTRY ORDERABL ES Final Result [facility] [address] [place] [address], * (ABNORMAL) HSV TYPE I IGG ANTIBODY (07/18/2025 9:32 AM CDT) HSV TYPE 1 IGG AB >8.0(H) <1.1 AI 07/18/2025 8:42 PM CDT [facility] Comment: <0.9 Negative. No detectable HSV-1 IgG antibody. 0.9 - 1.0 Equivocal >=1.1 Positive Antibody testing was performed by multiplex flow immunoassay on the [employer] platform. Blood Venipuncture / Unknown 07/18/2025 9:32 AM CDT 07/18/2025 9:56 AM CDT Kelli R Marquis CANTRELL CNP CHEMISTRY ORDERABL ES Final Result [facility] [address] [place] [address], [place] * MULTIPLE SLEEP LATENCY TEST WITHOUT CPAP (07/11/2025) Miranda Carmen Jerez APRN, CNP SLEEP CENTER ORDERABL ES Final Result * POLYSOMNOGRAPHY 4 OR MORE PARAMETERS (07/11/2025) Miranda Carmen Jerez APRN, CNP SLEEP CENTER ORDERABL ES Final Result * POCT GLYCOSYLATED HEMOGLOBIN (07/01/2025 4:39 PM CDT) HGB-A1C Comment:value was <4 07/01/2025 4:39 PM CDT Azul Bolaños PAC POINT OF CARE TESTING (M ANUAL) Final Result * QUIRINO DIAG BILATERAL DIGITAL W CAD W ABBY (11/22/2024 9:41 AM PATIENT ACCESS REPRESENTATIVE) Anatomical Region Laterality Modality breast Bilateral Mammography 11/22/2024 9:01 AM PATIENT ACCESS REPRESENTATIVE Narrative 11/22/2024 12:46 PM PATIENT ACCESS REPRESENTATIVE - QUIRINO DIAG BILATERAL DIGITAL W CAD W ABBY - QUIRINO US BREAST LIMITED RENAE BILATERAL DIGITAL DIAGNOSTIC MAMMOGRAM 3D/2D WITH CAD WITH MEDIOLATERAL OBLIQUE CRANIOCAUDAL AND BILATERAL ULTRASOUND: 11/22/2024 The study was acquired using digital technology and interpreted from soft copy. Current study was also evaluated with ICAD version 7.2. 2D digital mammographic views, as well as 3D digital tomosynthesis were performed in the CC and MLO projections. CLINICAL: Diagnostic study. Patient reports possible new lumps near both areola, as well as right upper outer breast. No personal history of cancer. Maternal grandmother and maternal aunt had breast cancer. COMPARISONS: Comparison is made to exams dated: 12/05/2017 and 03/09/2019 [facility]. BREAST TISSUE:The breasts are heterogeneously dense, which may obscure small masses. FINDINGS: BILATERAL DIAGNOSTIC MAMMOGRAM: No significant masses or calcifications are seen in either breast on the mammogram orTargeted bilateral breast ultrasound. No lesions are seen underlying the palpable areas of concern at the 11 o'clock position of the right breast, 6 cm from the nipple, 8 o'clock position of the right breast, 4 cm from the nipple, or 1 o'clock position of the left breast, 1 cm from the nipple. In the subareolar left breast, dilated ducts are seen. IMPRESSION: OVERALL STUDY BIRADS: CATEGORY 2: BENIGN There is no mammographic or sonographic evidence of malignancy. There are dilated ducts in the subareolar left breast. A 1 year screening mammogram is recommended. The results and recommendations were discussed with the patient. Electronically signed by: Janet Mcmillan M.D. ll/:11/22/2024 10:33:56 Spray Painter(s): RT Victoriano(R)(M), [facility]; JUNE Vang, [facility] letter sent: Normal Exam Reading location: [place] OVERALL STUDY BIRADS: Category 2: Benign Procedure Note Janet Mcmillan MD - 11/22/2024 - QUIRINO DIAG BILATERAL DIGITAL W CAD W ABBY - QUIRINO US BREAST LIMITED RENAE BILATERAL DIGITAL DIAGNOSTIC MAMMOGRAM 3D/2D WITH CAD WITH MEDIOLATERAL OBLIQUE CRANIOCAUDAL AND BILATERAL ULTRASOUND: 11/22/2024 The study was acquired using digital technology and interpreted from soft copy. Current study was also evaluated with ICAD version 7.2. 2D digital mammographic views, as well as 3D digital tomosynthesis were performed in the CC and MLO projections. CLINICAL: Diagnostic study. Patient reports possible new lumps near both areola, as well as right upper outer breast. No personal history of cancer. Maternal grandmother and maternal aunt had breast cancer. COMPARISONS: Comparison is made to exams dated: 12/05/2017 and 03/09/2019 [facility]. BREAST TISSUE:The breasts are heterogeneously dense, which may obscure small masses. FINDINGS: BILATERAL DIAGNOSTIC MAMMOGRAM: No significant masses or calcifications are seen in either breast on the mammogram orTargeted bilateral breast ultrasound. No lesions are seen underlying the palpable areas of concern at the 11 o'clock position of the right breast, 6 cm from the nipple, 8 o'clock position of the right breast, 4 cm from the nipple, or 1 o'clock position of the left breast, 1 cm from the nipple. In the subareolar left breast, dilated ducts are seen. IMPRESSION: OVERALL STUDY BIRADS: CATEGORY 2: BENIGN There is no mammographic or sonographic evidence of malignancy. There are dilated ducts in the subareolar left breast. A 1 year screening mammogram is recommended. The results and recommendations were discussed with the patient. Electronically signed by: Janet Mcmillan M.D. ll/:11/22/2024 10:33:56 Spray Painter(s): Maria T Byrne RT(R)(M), [facility]; JUNE Vang, [facility] letter sent: Normal Exam Reading location: [facility] OVERALL STUDY BIRADS: Category 2: Benign us MaggyCarmen Bolaños PAC IMG MAMMO ORDERABLES Fin al Result * PATHOLOGY CYTOLOGY CANOE INSPECTOR FINAL (01/13/2022 10:41 AM CDT) SPECIMEN ADEQUACY Satisfactory for evaluation. Endocervical/trans formation zone component is present. 02/03/2022 3:33 PM CDT [facility] GENERAL CATEGORY EPITHELIAL CELL ABNORMALITY. 02/03/2022 3:33 PM CDT [facility] DESCRIPTIVE DIAGNOSIS Low grade squamous intraepithelial lesion. 02/03/2022 3:33 PM CDT [facility] at 1533 CDT RECOMMENDATION Colposcopy and/or biopsy suggested. 02/03/2022 3:33 PM CDT [facility] HPV Reflex if ASCUS? No 02/03/2022 3:33 PM CDT [facility] Comment:co test Automated Examination Analysis of this sample has been assisted by an automated imaging and review system ([employer] System, [employer], [place], [place]). This case is further evaluated and finalized by a fitness assistant and/or pathologist. 02/03/2022 3:33 PM CDT [facility] Disclaimer The PAP smear is a screening test designed to detect cancerous or precancerous cells of the uterine cervix. It is one of the best means available for detection of cervical cancer but still carries an inherent false-negative rate. The consequences of a false-negative PAP result can be minimized by adhering to current screening guidelines. The following are general guidelines recommended by the ACS, ASCP, ASCCP, and ACOG: PAP testing is recommended every three years for women 21-29, Co-Testing, a PAP test in conjunction with an HPV (Human Papillomavirus) test for women ages 30-65, and no PAP or HPV testing for women under the age of 21 or older than 65 unless clinically indicated. 02/03/2022 3:33 PM CDT [facility] Other CERVIX UTERI STRUCTURE / Unknown Non-Phlebotomy Collection / Unknown 01/13/2022 10:41 AM CDT 01/13/2022 10:42 AM CDT us Azul Bolaños PAC PATHOLOGY/CYTOLOGY ORDER ORLY Final Result [facility] [address] [place] [address], [place] * (ABNORMAL) HUMAN PAPILLOMA VIRUS (HPV) (01/13/2022 10:41 AM CDT) HPV OTHER HIGH RISK TYPES, PCR POSITIVE(A) NEGATIVE 01/15/2022 3:39 PM CDT [facility] Comment: Positive for one or more of the following Other High HPV types: 31, 33, 35, 39, 45, 51, 52, 56, 58, 59, 66, and 68. False-positive results have been reported with molecular assays. If these positive results are discordant with clinical/cytohistologic findings, repeat testing may be considered after an appropriate interval. HPV TYPE 16 NEGATIVE NEGATIVE 01/15/2022 3:39 PM CDT [facility] Comment: A negative high-risk HPV result does not exclude the possibility of future cytologic HSIL or underlying CIN2-3 or cancer. The presence of PCR inhibitors may cause false negative or invalid results. If concentrations of whole blood in the sample exceed 1.5% (dark red or brown coloration) in PreservCyt solution, there is a likelihood of obtaining a false-negative result. HPV TYPE 18 NEGATIVE NEGATIVE 01/15/2022 3:39 PM CDT [facility] Comment: A negative high-risk HPV result does not exclude the possibility of future cytologic HSIL or underlying CIN2-3 or cancer. The presence of PCR inhibitors may cause false negative or invalid results. If concentrations of whole blood in the sample exceed 1.5% (dark red or brown coloration) in PreservCyt solution, there is a likelihood of obtaining a false-negative result. HPV ORDER BE USED FOR SCREENING OR DIAGNOSTIC SCREENING 01/15/2022 3:39 PM CDT [facility] Other Non-Phlebotomy Collection / Unknown 01/13/2022 10:41 AM CDT 01/13/2022 10:42 AM CDT Narrative [facility] - 01/15/2022 3:39 PM CDT Performed by Real-Time Polymerase Chain Reaction (PCR) on the Steven David 4800. This assay has been validated for use with post-aliquot samples from the [employer] T5000 processor. Azul Bolaños PAC LAB SEND OUTS Final Re sult [facility] [address] [place] [address], [facility] [address] [place] [address] * HEPATITIS C ANTIBODY (03/12/2019 12:00 PM CDT) hepatitis C antibody 0.17 <1 S/CO 03/12/2019 10:40 PM CDT [facility] Comment: Signal/Cutoff ratio < 0.79 is Nondetected Signal/Cutoff ratio 0.80-0.99 is Grayzone Signal/Cutoff ratio > 0.99 is Detected Supplemental assays are recommended if signal/cutoff ratio is >/=1.00. Signal/cutoff ratio result >/= 5.00 is 97% predictive of positivity for recombinant immunoblot assay (RIBA) and will be reported to the [place] Department of Public Health as required. Blood specimen (specimen) Venipuncture / Unknown 03/12/2019 12:00 PM CDT 03/12/2019 12:00 PM CDT us Azul Bolaños PAC CHEMISTRY ORDERABLES Fin al Result [facility] [address] [place] [address], from Last 3 Months or Most Recently Relevant to Health Maintenance Insurance DR RAPHAEL [address] [place] [phone] MEDICAID [place] Care Teams Laborer [employer] Relationship Specialty Start Date End Date Azul Bolaños PAC [address] [place] [address] PCP - General Physician Director Energy 11/25/16 Luly Washington, RENAL CASE MANAGER, CONFERENCE CONCIERGE [address] [place] [address] Obstetrics & Gynecology 02/09/21 Jensen Reddy MD [address] [place] [address] Consulting Physician Obstetrics & Gynecology 07/05/22 Belinda Short APRN, CONFERENCE CONCIERGE [address] [place] [address] Nurse Practitioner Advanced Practice Nurse 09/02/23 Andrew Ramos MD [address] [place] [address] Consulting Physician Medical Oncology 06/20/23 Brain May MD [address] [facility] [address] [address] Consulting Physician General Surgery 08/31/24 Pilo Gutiérrez MD 2 [facility] JACQUELINE [address] [address] Consulting Physician General Surgery 05/28/25
--- OUTSIDE RECORDS SUMMARY | 2025-09-03 06:02 | XMS_ITS | Encounter Summary ---
Author Organization [facility] Address [address] [place] [address] Phone Care Team Providers Care Final Inspector Shuttle Name Role Phone Azul Bolaños Primary Care Provider + Luly Washington APRN, MARKETING OPERATIONS SPECIALIST Unavailable Jensen Reddy MD Unavailable [phone] Belinda Short APRN, MARKETING OPERATIONS SPECIALIST Unavailable Andrew Ramos MD Unavailable Brain May MD Unavailable Pilo Gutiérrez MD Unavailable [phone] Reason for Visit * Reason Comments Medication Refill Encounter Details Date Type Department Care Team (Late st Contact Info) Description 09/14/2022 [facility]ill [facility] - Family Medicine - [place] [address] [place] [address] Kelli Cho APRN, MARKETING OPERATIONS SPECIALIST #[address] [address] Medication Refill Social History Tobacco Use Types [...] Sexually Active Control Partners Comments Not Currently Comments No Sex and Gender Information Value Date Recorded Sex Assigned at Not on file Legal Sex Female 7:38 PM CDT Gender Identity Not on file Sexual Orientation Not on file COVID-19 Exposure Response Date Recorded In the last 10 days, have yo u been in contact with someone who was confirmed or suspected to have Coronavirus/COVID-19? No / Unsure 09/13/2022 8:38 AM ACCOUNTING TECHNICIAN documented as of this encounter Miscellaneous Notes * Telephone Encounter - Blanca Barbour RN - 09/14/2022 4:21 PM CST Medication failed the protocol, provider to review and approve the medication order if appropriate. Requested Prescriptions Pending Prescriptions Disp Refills valACYclovir (VALTREX) 500 MG Tablet [Pharmacy Med Name: valACYclovir HCl 500MG TABS*] 28 Tablet 1 Sig: TAKE 1 TABLET BY MOUTH DAILY Not Delegated - Herpes Agents Protocol Failed - 09/14/2022 4:10 PM Failed - This refill cannot be delegated Passed - Visit with relevant provider in past 12 months or upcoming 90 days Recent Visits Date Type Provider Dept 09/13/22 Office Visit Azul Bolaños PAC [facility] 04/09/22 Procedure Visit Micah Wynne MD [facility] 01/13/22 Office Visit Azul Bolaños PAC [facility] Showing recent visits within past 365 days and meeting all other requirements Future Appointments No visits were found meeting these conditions. Showing future appointments within next 90 days and meeting all other requirements UNTING TECHNICIAN documented in this encounter Plan of Treatment Upcoming Encounters Date Type Department Care Team (Latest Contact Info) Description 09/10/2025 9:40 AM ACCOUNTING TECHNICIAN Immunization [facility] - Family Medicine - [place] [address] [place] [address] 09/16/2025 9:30 AM ACCOUNTING TECHNICIAN [facility] [address] [place] [address] Mariela Ashley February, PAC [address] [place] [address] Discharge Disposition: Discharged to home or Selfcare 09/23/2025 9:20 AM ACCOUNTING TECHNICIAN [facility] [address] [place] [address] Mariela Ashley February, PAC [address] [place] [address] Discharge Disposition: Discharged to home or Selfcare 09/23/2025 10:30 AM ACCOUNTING TECHNICIAN Office Visit [facility] - Pulmonology & Sleep Medicine [facility] [address] [place] [address] Miranda Jerez APRN, MARKETING OPERATIONS SPECIALIST #[address] [address] 10/09/2025 8:00 AM ACCOUNTING TECHNICIAN [facility] [address] [place] [address] See Monreal MD [address] [address] 10/09/2025 8:00 AM ACCOUNTING TECHNICIAN - 10/09/2025 8:30 AM ACCOUNTING TECHNICIAN [facility] [address] [place] [address] See Monreal MD [address] [address] EGD 01/02/2026 2:20 PM CDT [facility] [place] [address] Azul Bolaños, PAC [address] [place] [address] Scheduled Procedures Name Priority Associated Diagnoses Date/Ti me EGD GASTRIC REFLUX 10/09/2025 8:00 AM ACCOUNTING TECHNICIAN documented as of this encounter Visit Diagnoses Not on filedocumented in this encounter Additional Health Concerns Infection Onset Date Last Indicated Resolved Time COVID - 19 08/16/2023 08/16/2023 08/26/2023 12:1 6 AM ACCOUNTING TECHNICIAN C. difficile Rule-Out 10/19/2024 10/19/20242024 12:16 AM ACCOUNTING TECHNICIAN COVID - 19 05/13/2025 05/13/2025 05/13/2025 11:5 1 AM CDT Respiratory Rule-Out 05/13/2025 05/13/2025 025 12:33 PM CDT Respiratory Rule-Out 08/27/2025 08/27/2025 025 3:34 PM ACCOUNTING TECHNICIAN Assessment Noted Time PHQ-9 Depression Total Score: 0 09/13/20 22 9:00 AM ACCOUNTING TECHNICIAN documented as of this encounter Care Teams Final Inspector Shuttle Relationship Specialty Start Date End Date Azul Bolaños, PAC [address] [place] [address] PCP - General Physician Inspector Plating 11/25/16 Luly Washington, SKYLIGHTS ASSEMBLER, MARKETING OPERATIONS SPECIALIST [address] [place] [address] Obstetrics & Gynecology 02/09/21 Jensen Reddy MD [address] [place] [address] Consulting Physician Obstetrics & Gynecology 07/05/22 Belinda Short APRN, MARKETING OPERATIONS SPECIALIST [address] [place] [address] Nurse Practitioner Advanced Practice Nurse 09/02/23 Andrew Ramos MD [address] [place], [place] [phone] Consulting Physician Medical Oncology 06/20/23 Brain May MD #[address] [address] Consulting Physician General Surgery 08/31/24 Pilo Gutiérrez MD [address] [address] Consulting Physician General Surgery 05/28/25 documented as of this encounter
--- OUTSIDE RECORDS SUMMARY | 2025-09-03 06:02 | XMS_ITS | Encounter Summary ---
Author Organization [facility] Address [address] [place] [address] Phone Care Team Providers Care Flatwork Supervisor Name Role Phone Azul Bolaños Primary Care Provider + Luly Washington APRN, VULCANIZER RUBBER PLATE Unavailable Jensen Reddy MD Unavailable [phone] Belinda Short APRN, VULCANIZER RUBBER PLATE Unavailable Andrew Ramos MD Unavailable Brain May MD Unavailable Pilo Gutiérrez MD Unavailable [phone] Reason for Visit * Reason Comments Medication Refill Encounter Details Date Type Department Care Team (Late st Contact Info) Description 07/26/2022 Refill [facility] - Family Medicine - [place] [address] [place] [id number] Azul Bolaños PAC [address] [place] [address] Medication Refill Social History Tobacco Use Types Packs/Day Years Used Date Smoking Tobacco: Former Cigarettes 0.3 15 0 09/2006 - 09/2021 Smokeless Tobacco: Never Comments:ONE CIGARETTE ONCE A [...] Telephone Encounter - Blanca Barbour RN - 07/27/2022 8:20 AM CDT Medication failed the protocol, provider to review and approve the medication order if appropriate. Requested Prescriptions Pending Prescriptions Disp Refills valACYclovir (VALTREX) 500 MG Tablet [Pharmacy Med Name: valACYclovir HCl 500MG TABS*] 28 Tablet 1 Sig: TAKE 1 TABLET BY MOUTH DAILY Not Delegated - Herpes Agents Protocol Failed - 07/26/2022 1:56 PM Failed - This refill cannot be delegated Passed - Visit with relevant provider in past 12 months or upcoming 90 days Recent Visits Date Type Provider Dept 04/09/22 Procedure [facility] Office Visit Azul Bolaños PAC [facility] 09/08/21 Office Visit Azul Bolaños PAC [facility] Show[facility] recent visits within past 365 days and meeting all other requirements Future Appointments No visits were found meeting these conditions. Showing future appointments within next 90 days and meeting all other requirements documented in this encounter Plan of Treatment Upcoming Encounters Date Type Department Care Team (Latest Contact Info) Description 09/10/2025 9:40 AM OSTRICH FARMER Immunization [facility] - [facility] Medicine - [place] [address] [place] [phone] 09/16/2025 9:30 AM OSTRICH FARMER [facility] [address] [place] [address] Mariela Ashley February, PAC [address] [place] [address] Discharge Disposition: Discharged to home or Selfcare 09/23/2025 9:20 AM OSTRICH FARMER [facility] [address] [place] [address] Mariela Ashley February, PAC [address] [place] [address] Discharge Disposition: Discharged to home or Selfcare 09/23/2025 10:30 AM OSTRICH FARMER Office [facility] - Pulmonology & Sleep Medicine [facility] [address] [place] [address] Miranda Jerez APRN, VULCANIZER RUBBER PLATE #[address] [address] 10/09/2025 8:00 AM OSTRICH FARMER [facility] [address] [place] [address] eSe Monreal MD [address] [address] 10/09/2025 8:00 AM OSTRICH FARMER - 10/09/2025 8:30 AM OSTRICH FARMER Surgery [facility] Gi Lab Periop [address] [place] [address] See Monreal MD [address] [address] EGD 01/02/2026 2:20 PM CDT Office Visit [facility] [address] [place] [address] Azul Bolaños PAC [address] [place] [address] Scheduled Procedures Name Priority Associated Diagnoses Date/Ti me EGD GASTRIC REFLUX 10/09/2025 8:00 AM OSTRICH FARMER documented as of this encounter Visit Diagnoses Not on filedocumented in this encounter Additional Health Concerns Infection Onset Date Last Indicated Resolved Time COVID - 19 08/16/2023 08/16/2023 08/26/2023 12:1 6 AM OSTRICH FARMER C. difficile Rule-Out 10/19/2024 10/19/20242024 12:16 AM OSTRICH FARMER COVID - 19 05/13/2025 05/13/2025 05/13/2025 11:5 1 AM CDT Respiratory Rule-Out 05/13/2025 05/13/2025 025 12:33 PM CDT Respiratory Rule-Out 08/27/2025 08/27/2025 025 3:34 PM OSTRICH FARMER Assessment Noted Time PHQ-9 Depression Total Score: 0 02/13/20 8:59 AM CDT documented as of this encounter Care Teams Flatwork Supervisor Relationship Specialty Start Date End Date Azul Bolaños PAC [address] [place] [address] PCP - General Physician Jewelry Dipper 11/25/16 Luly Washington, PSYCHIATRIC TECH, VULCANIZER RUBBER PLATE [address] [place] [address] Obstetrics & Gynecology 02/09/21 Jensen Reddy MD [address] [place] [address] Consulting Physician Obstetrics & Gynecology 07/05/22 Belinda Short APRN, VULCANIZER RUBBER PLATE [address] [place] [address] Nurse Practitioner Advanced Practice Nurse 09/02/23 Andrew Ramos MD [address] [place] [address] Consulting Physician Medical Oncology 06/20/23 Brain May MD #[address] [phone] Consulting Physician General Surgery 08/31/24 Pilo Gutiérrez MD 2 [facility] J[address]INE [address] [address] Consulting Physician General Surgery 05/28/25 documented as of this encounter
--- OUTSIDE RECORDS SUMMARY | 2025-09-03 06:02 | XMS_ITS | Encounter Summary ---
Author Organization [facility] Address [address] [place] [address] Phone Care Team Providers Care Senior Account Director Name Role Phone Azul Bolaños Primary Care Provider + Luly Washington APRN, LIBRARY CONSULTANT Unavailable Jensen Reddy MD Unavailable [phone] Belinda Short APRN, LIBRARY CONSULTANT Unavailable Andrew Ramos MD Unavailable Brain May MD Unavailable [phone] Pilo Gutiérrez MD Unavailable [phone] Reason for Visit * Reason Comments Medication Refill Encounter Details Date Type Department Care Team (Late st Contact Info) Description 02/06/2024 [facility]ill [facility] - [place] [address] [place] [phone] Azul Bolaños PAC [address] [place] [address] Medication Refill Social History Tobacco Use Types Packs/Day Years Used Date Smoking Tobacco: Former Cigarettes 0.3 15 0 09/2006 - 09/2021 Smokeless Tobacco: Never Alcohol Use Standard Drinks/Week Comments Yes 0 (1 standard drink = 0.6 oz pur e alcohol) OCCASSIONALLY [facility] Utilities Answer Date Recorded In the past [...] often do you attend chur ch or yazidism services? 1 to 4 times per year 10/11/2023 Do you belong to any clubs o r organizations such as restorationism groups, unions, fraternal or athletic groups, or [...] Recorded Total Score - Questions 1-9 0 05/0 11/2023 [facility] [place] of Occupat ional Health - Occupational Stress [...] health care facility (including now)? No 10/11/2023 Education Answer Date [...] Telephone Encounter - Blanca Barbour RN - 02/06/2024 4:27 PM CDT Medication(s) refilled and signed per [facility] Chronic Medication Refill Standing Order for Pediatricand Adult Patients. Requested Prescriptions Pending Prescriptions Disp Refills Allergy Relief Cetirizine 10 MG Tablet [Pharmacy Med Name: Allergy Relief Cetirizine 10MG TABS] 28 Tablet 5 Sig: TAKE 1 TABLET BY MOUTH DAILY Non-sedating Antihistamines Protocol Passed - 02/06/2024 12:03 PM Passed - Visit with relevant provider in past 12 months or upcoming 90 days Recent Visits Date Type Provider Dept 01/27/24 Office Visit Kelli Cho APRN, LIBRARY CONSULTANT [facility] 10/12/23 Office Visit Azul Bolaños, PAC [facility] 08/23/23 Office Visit Mike Posada APRN, LIBRARY CONSULTANT [facility] 08/11/23 Office Visit Azul Bolaños, PAC [facility] 06/07/23 Office Visit Azul Bolaños, PAC [facility] 05/04/23 Office Visit Azul Bolaños, PAC [facility] Showing recent visits within past 365 days and meeting all other requirements Future Appointments No visits were found meeting these conditions. Showing future appointments within next 90 days and meeting all other requirements Passed - Patient less than 65 years of age for Cetirizine or Levocetirizine documented in this encounter Plan of Treatment Upcoming Encounters Date Type Department Care Team (Latest Contact Info) Description 09/10/2025 9:40 AM FISH DRIER Immunization [facility] - Family Medicine - [place] [address] [place] [address] 09/16/2025 9:30 AM FISH DRIER [facility] [address] [place] [address] Mariela Ashley February, [facility] [address] [place] [address] Discharge Disposition: Discharged to home or Selfcare 09/23/2025 9:20 AM FISH DRIER Office Visit [facility] Oncology Services [address] [place] [address] Mariela Ashley February, PAC [address] [place] [address] Discharge Disposition: Discharged to home or Selfcare 09/23/2025 10:30 AM FISH DRIER [facility] [address] [place] [address] Miranda Jerez APRN, LIBRARY CONSULTANT #[address] [address] 10/09/2025 8:00 AM FISH DRIER [facility] [address] [place] [address] See Monreal MD [address] [address] 10/09/2025 8:00 AM FISH DRIER - 10/09/2025 8:30 AM FISH DRIER [facility] [address] [place] [address] See Monreal MD [address] [address] EGD 01/02/2026 2:20 PM CDT [facility] - [place] [address] [place] [address] Azul Bolaños, BIJAN [address] [place] [address] Scheduled Procedures Name Priority Associated Diagnoses Date/Ti me EGD GASTRIC REFLUX 10/09/2025 8:00 AM FISH DRIER documented as of this encounter Visit Diagnoses Not on filedocumented in this encounter Additional Health Concerns Infection Onset Date Last Indicated Resolved Time C. difficile Rule-Out 10/19/2024 10/19/20242024 12:16 AM FISH DRIER COVID - 19 05/13/2025 05/13/2025 05/13/2025 11:5 1 AM CDT Respiratory Rule-Out 05/13/2025 05/13/2025 025 12:33 PM CDT Respiratory Rule-Out 08/27/2025 08/27/2025 025 3:34 PM FISH DRIER Assessment Noted Time PHQ-9 Depression Total Score: 0 01/27/20 24 7:54 AM CDT documented as of this encounter Care Teams Senior Account Director Relationship Specialty Start Date End Date Azul Bolaños [facility] [address] [place] [address] PCP - General Physician Shearer Helper 11/25/16 Luly Washington APRN, LIBRARY CONSULTANT [address] [place] [address] Obstetrics & Gynecology 02/09/21 Jensen Reddy MD [address] [place] [address] Consulting Physician Obstetrics & Gynecology 07/05/22 Belinda Short APRN, LIBRARY CONSULTANT [address] [place] [address] Nurse Practitioner Advanced Practice Nurse 09/02/23 Andrew Ramos MD [address] [place] [address] Consulting Physician Medical Oncology 06/20/23 Brain May MD #[address] [phone] Consulting Physician General Surgery 08/31/24 Pilo Gutiérrez MD [address] [place] [address] Consulting Physician General Surgery 05/28/25 documented as of this encounter
--- OUTSIDE RECORDS SUMMARY | 2025-09-03 06:02 | XMS_ITS | Encounter Summary ---
Author Organization [facility] Address [address] [place] [address] Phone Care Team Providers Care Endless Belt Finisher Name Role Phone Azul Bolaños Primary Care Provider + Luly Washington APRN, DOCKING SAW OPERATOR Unavailable [phone] Jensen Reddy MD Unavailable [phone] Belinda Short APRN, DOCKING SAW OPERATOR Unavailable Andrew Ramos MD Unavailable [phone] Brain May MD Unavailable [phone] Pilo Gutiérrez MD Unavailable [phone] Encounter Details Date Type Department Care Team (Late st Contact Info) Description 08/29/2025 Results Follow-Up [facility] Emergency [address] [place] [address] Carei Alvarado BUSINESS TECHNOLOGY ARCHITECT, DOCKING SAW OPERATOR [address] [place] [address] Molecular, Vaginitis Screen Social History Tobacco Use Types Packs/Day Years Used Date Smoking Tobacco: Former Cigars Smokeless Tobacco: Never Alcohol Use Standard Drinks/Week Comments Not Currently 1 (1 standard drink = 0.6 oz pur e alcohol) Occasionally drinker [facility] Utilities Answer Date Recorded In [...] week 12/04/2024 How often do you attend chur ch or buddhism services? 1 to 4 times per year 12/04/2024 Do you belong to any clubs o r organizations such as evangelical groups, unions, fraternal or athletic groups, or [...] Total Score - Questions 1-9 0 01/25 [facility] of Occupat ional Health - Occupational Stress [...] any time in the past 12 m [facility], were you homeless or living in a [...] on file documented as of this encounter Functional Status * BP Answer Date of Assessment Author 128/84 08/29/2025 10:34 AM Sandy Butcher MA * Temp Answer Date of Assessment Author 97.1 08/29/2025 10:34 AM Sandy Butcher MA * Pulse Answer Date of Assessment Author 67 08/29/2025 10:34 AM Sandy Butcher MA * Resp Answer Date of Assessment Author 16 08/29/2025 10:34 AM Sandy Butcher MA * SpO2 Answer Date of Assessment Author 99 08/29/2025 10:34 AM Sandy Butcher MA documented as of this encounter Mental Status * BP Answer Entry Date Author 128/84 08/29/2025 10:34 AM Sandy Butcher MA * Temp Answer Entry Date Author 97.1 08/29/2025 10:34 AM Sandy Butcher MA * Pulse Answer Entry Date Author 67 08/29/2025 10:34 AM Sandy Butcher MA * SpO2 Answer Entry Date Author 99 08/29/2025 10:34 AM Sandy Butcher MA documented in this encounter Plan of Treatment Upcoming Encounters Date Type Department Care Team (Latest Contact Info) Description 09/10/2025 9:40 AM BUILDING MECHANIC Immunization [facility] [address] [place] [address] 09/16/2025 9:30 AM BUILDING MECHANIC [facility] [address] [place] [address] Mariela Ashley Mitzi, [address] [place] [address] Discharge Disposition: Discharged to home or Selfcare 09/23/2025 9:20 AM BUILDING MECHANIC [facility] [address] [place] [address] Mariela Ashley Mitzi, PAC [address] [place] [address] Discharge Disposition: Discharged to home or Selfcare 09/23/2025 10:30 AM BUILDING MECHANIC [facility] [address] [place] [address] Miranda Jerez APRN, DOCKING SAW OPERATOR #[address] [address] 10/09/2025 8:00 AM BUILDING MECHANIC [facility] [address] [place] [address] See Monreal MD [address] [address] 10/09/2025 8:00 AM BUILDING MECHANIC - 10/09/2025 8:30 AM BUILDING MECHANIC [facility] [address] [place] [address] See Monreal MD [address] [address] EGD 01/02/2026 2:20 PM CDT [facility] [address] [place] [address] Azul Bolaños, PAC [address] [place] [address] Scheduled Procedures Name Priority Associated Diagnoses Date/Ti me EGD GASTRIC REFLUX 10/09/2025 8:00 AM BUILDING MECHANIC documented as of this encounter Visit Diagnoses Not on filedocumented in this encounter Additional Health Concerns Assessment Noted Time PHQ-9 Depression Total Score: 0 02/13/20 25 2:05 PM CDT documented as of this encounter Care Teams Endless Belt Finisher Relationship Specialty Start Date End Date Azul Bolaños PAC [address] [place] [address] PCP - General Physician Manager Of Sales 11/25/16 Luly Washington BUSINESS TECHNOLOGY ARCHITECT, DOCKING SAW OPERATOR [address] [place] [address] Obstetrics & Gynecology 02/09/21 Jensen Reddy MD [address] [place] [address] Consulting Physician Obstetrics & Gynecology 07/05/22 Belinda Short APRN, DOCKING SAW OPERATOR [address] [place] [address] Nurse Practitioner Advanced Practice Nurse 09/02/23 Andrew Ramos MD [address] [place] [address] Consulting Physician Medical Oncology 06/20/23 Brain May MD #[address] [phone] Consulting Physician General Surgery 08/31/24 Pilo Gutiérrez MD [address] [address] Consulting Physician General Surgery 05/28/25 documented as of this encounter
--- OUTSIDE RECORDS SUMMARY | 2025-09-03 06:02 | XMS_ITS | Encounter Summary ---
Author Organization [facility] Address [address] [place] [address] Phone Care Team Providers Care Keeler Polygraph Operator Name Role Phone Azul Bolaños Primary Care Provider + Luly Washington APRN, PLASTERER SPOT Unavailable Jensen Reddy MD Unavailable [phone] Belinda Short APRN, PLASTERER SPOT Unavailable Andrew Ramos MD Unavailable Brain May MD Unavailable Pilo Gutiérrez MD Unavailable [phone] Reason for Visit * Reason Comments Medication Refill Encounter Details Date Type Department Care Team (Late st Contact Info) Description 10/13/2021 [facility] [address] [place] [address] Mike Posada APRN, PLASTERER SPOT #[address] [address] Medication Refill Social History Tobacco Use Types [...] Telephone Encounter - Blanca Barbour RN - 10/13/2021 9:14 AM CST Follow up 10/26/21 Medication failed the protocol, provider to review and approve the medication order if appropriate. Requested Prescriptions Pending Prescriptions Disp Refills famotidine (PEPCID) 20 MG Tablet [Pharmacy Med Name: Famotidine 20MG TABS] 56 Tablet 0 Sig: TAKE 1 TABLET BY MOUTH TWICE A DAY NEEDED There is no refill protocol information for this order BUFFER documented in this encounter Plan of Treatment Upcoming Encounters Date Type Department Care Team (Latest Contact Info) Description 09/10/2025 9:40 AM PIPE BUFFER Immunization [facility] - Family [facility] [address] [place] [address] 09/16/2025 9:30 AM PIPE BUFFER [facility] [address] [place] [address] Mariela Ashley PAC [address] [place] [address] Discharge Disposition: Discharged to home or Selfcare 09/23/2025 9:20 AM PIPE BUFFER Office [facility] [address] [place] [address] AshleyMariela, PAC [address] [place] [address] Discharge Disposition: Discharged to home or Selfcare 09/23/2025 10:30 AM PIPE BUFFER [facility] [address] [place] [address] Miranda Jerez APRN, PLASTERER SPOT #[address] [address] 10/09/2025 8:00 AM PIPE BUFFER [facility] [address] [place] [address] See Monreal MD [address] [address] 10/09/2025 8:00 AM PIPE BUFFER - 10/09/2025 8:30 AM PIPE BUFFER [facility] [address] [place] [address] See Monreal MD [address] [address] EGD 01/02/2026 2:20 PM CDT Office Visit [facility] - Family Medicine [facility] [address] [place] [address] Azul Bolaños, PAC [address] [place] [address] Scheduled Procedures Name Priority Associated Diagnoses Date/Ti me EGD GASTRIC REFLUX 10/09/2025 8:00 AM PIPE BUFFER documented as of this encounter Visit Diagnoses Not on filedocumented in this encounter Additional Health Concerns Infection Onset Date Last Indicated Resolved Time COVID - 19 01/11/2022 01/11/2022 01/31/2022 12:1 7 AM CDT COVID - 19 08/16/2023 08/16/2023 08/26/2023 12:1 6 AM PIPE BUFFER C. difficile Rule-Out 10/19/2024 10/19/20242024 12:16 AM PIPE BUFFER COVID - 19 05/13/2025 05/13/2025 05/13/2025 11:5 1 AM CDT Respiratory Rule-Out 05/13/2025 05/13/2025 025 12:33 PM CDT Respiratory Rule-Out 08/27/2025 08/27/2025 025 3:34 PM PIPE BUFFER Assessment Noted Time PHQ-9 Depression Total Score: 0 02/13/20 8:59 AM CDT documented as of this encounter Care Teams Keeler Polygraph Operator Relationship Specialty Start Date End Date Azul Bolaños PAC [address] [place] [address] PCP - General Physician Outpatient Coordinator 11/25/16 Luly Washington APRN, PLASTERER SPOT [address] [place] [address] Obstetrics & Gynecology 02/09/21 Jensen Reddy MD [address] [place] [address] Consulting Physician Obstetrics & Gynecology 07/05/22 Belinda Short APRN, PLASTERER SPOT [address] [place] [address] Nurse Practitioner Advanced Practice Nurse 09/02/23 [place] [address] [place] [address] Consulting Physician Medical Oncology 06/20/23 Brain May MD [address]2 [facility] [address] [place] [address] Consulting Physician General Surgery 08/31/24 Pilo Gutiérrez MD 2 [facility] [address] [place] [address] Consulting Physician General Surgery 05/28/25 documented as of this encounter
--- OUTSIDE RECORDS SUMMARY | 2025-09-03 06:02 | XMS_ITS | Encounter Summary ---
Author Organization [facility] Address [address] [place] [address] Phone Care Team Providers Care Gristmiller Name Role Phone Azul Bolaños Primary Care Provider + Luly Washington APRN, DIRECTOR OF PHYSICAL SECURITY Unavailable Jensen Reddy MD Unavailable [phone] Belinda Short APRN, DIRECTOR OF PHYSICAL SECURITY Unavailable Andrew Ramos MD Unavailable Brain May MD Unavailable [phone] Pilo Gutiérrez MD Unavailable [phone] Reason for Visit * Reason Comments Medication Refill Encounter Details Date Type Department Care Team (Late st Contact Info) Description 03/06/2024 [facility]ill [facility] - [facility] - [place] [address] [place] [id number] Azul Bolaños PAC [address] [place] [address] Medication Refill Social History Tobacco Use Types Packs/Day Years Used Date Smoking Tobacco: Former Cigarettes 0.3 15 0 09/2006 - 09/2021 Smokeless Tobacco: Never Alcohol Use Standard Drinks/Week Comments Yes 0 (1 standard drink = 0.6 oz pur e alcohol) OCCASSIONALLY [facility] Utilities Answer Date Recorded In the past [...] often do you attend chur ch or protestant services? 1 to 4 times per year 10/11/2023 Do you belong to any clubs o r organizations such as mormon groups, unions, fraternal or athletic groups, or [...] Score - Questions 1-9 0 05/0 11/2023 [facility] [place] of Occupat ional Health - Occupational Stress [...] place to sleep or slept in a detention (including now)? No 10/11/2023 Education Answer Date [...] Telephone Encounter - Blanca Barbour RN - 03/06/2024 1:01 PM CDT Medication failed the protocol, provider to review and approve the medication order if appropriate. Requested Prescriptions Pending Prescriptions Disp Refills fluticasone (FLOVENT HFA) 110 MCG/ACT Aerosol [Pharmacy Med Name: Fluticasone Propionate HFA 110MCG/ACT AERO] 12 g 3 Sig: INHALE 2 PUFFS TWICE A DAY Inhaled Steroids Protocol Passed - 03/06/2024 9:24 AM Passed - Visit with relevant provider in past 12 months or upcoming 90 days Recent Visits Date Type Provider Dept 01/27/24 Office Visit Kelli Cho APRN, KHANG [facility] 10/12/23 Office Visit Azul Bolaños PAC [facility] 08/23/23 Office Visit Mike Posada APRN, CNP [facility] 08/11/23 Office Visit Azul Bolaños PAC [facility] 06/07/23 Office Visit Azul Bolaños PAC [facility] 05/04/23 Office Visit Azul Bolaños PAC [facility] Showing recent visits within past 365 days and meeting all other requirements Future Appointments No visits were found meeting these conditions. Showing future appointments within next 90 days and meeting all other requirements Passed - Active short-acting beta agonist prescription albuterol 108 (90 Base) MCG/ACT Aerosol Solution [Pharmacy Med Name: Albuterol Sulfate HFA 108 (90 Base)MCG/ACT AERS] 6.7 g 1 Sig: INHALE 2 PUFFS EVERY FOUR HOURS NEEDED FOR WHEEZING OR COUGH Short Acting Inhaled Beta-Agonists Protocol Passed - 03/06/2024 9:24 AM Passed - Visit with relevant provider in past 12 months or upcoming 90 days Recent Visits Date Type Provider Dept 01/27/24 Office Visit Kelli Cho APRN, CNP [facility] 10/12/23 Office Visit Azul Bolaños PAC [facility] 08/23/23 Office Visit Mike Posada APRN, CNP [facility] 08/11/23 Office Visit Azul Bolaños PAC [facility] 06/07/23 Office Visit Azul Bolaños PAC [facility] 05/04/23 Office Visit Azul Bolaños PAC [facility] Showing recent visits within past 365 days and meeting all other requirements Future Appointments No visits were found meeting these conditions. Showing future appointments within next 90 days and meeting all other requirements naproxen (NAPROSYN) 500 MG Tablet [Pharmacy Med Name: Naproxen 500MG TABS] 60 Tablet 1 Sig: TAKE 1 TABLET BY MOUTH TWICE A DAY NEEDED FOR MODERATE OR MORE SEVERE PAIN NSAIDs Protocol Passed - 03/06/2024 9:24 AM Passed - Normal serum creatinine in past 12 months CREATININE, BLOOD Date Value Ref Range Status 01/27/2024 0.75 0.60 - 1.00 mg/dL Final Passed - No positive test in the past 12 months or most recent test was negative Passed - Visit with relevant provider in past 12 months or upcoming 90 days Recent Visits Date Type Provider Dept 01/27/24 Office Visit Kelli Cho APRN, DIRECTOR OF PHYSICAL SECURITY [facility] 10/12/23 Office Visit Azul Bolaños, PAC [facility] 08/23/23 Office Visit Mike Posada APRN, DIRECTOR OF PHYSICAL SECURITY [facility] 08/11/23 Office Visit Azul Bolaños, PAC [facility] 06/07/23 Office Visit Azul Bolaños, PAC [facility] 05/04/23 Office Visit Azul Bolaños, PAC [facility] Showing recent visits within past 365 days and meeting all other requirements Future Appointments No visits were found meeting these conditions. Showing future appointments within next 90 days and meeting all other requirements Passed - No active on record Passed - No matching NSAID med order in past 45 days No matching medication orders between 01/21/2024 1:01 PM and 03/06/2024 1:01 PM Passed - AST less than 55 or ALT less than 90 in past 12 months SGOT (AST) Date Value Ref Range Status 01/27/2024 20 5 - 34 U/L Final SGPT (ALT) Date Value Ref Range Status 01/27/2024 13 0 - 55 U/L Final Passed - HGB greater than 10 or HCT greater than 30 in past 12 months HEMOGLOBIN (HGB) Date Value Ref Range Status 01/27/2024 10.3 (L) 12.0 - 15.8 g/dL Final HEMOGLOBIN A Date Value Ref Range Status 01/10/2017 0 % Final HEMOGLOBIN, Date Value Ref Range Status 01/10/2017 0.4 <2.0 % Final HEMATOCRIT (HCT) Date Value Ref Range Status 01/27/2024 29.7 (L) 36.0 - 47.0 % Final valACYclovir (VALTREX) 500 MG Tablet [Pharmacy Med Name: valACYclovir HCl 500MG TABS*] 28 Tablet 2 Sig: TAKE 1 TABLET BY MOUTH DAILY Not Delegated - Herpes Agents Protocol Failed - 03/06/2024 9:24 AM Failed - This refill cannot be delegated Passed - Visit with relevant provider in past 12 months or upcoming 90 days Recent Visits Date Type Provider Dept 01/27/24 Office Visit Kelli Cho APRN, DIRECTOR OF PHYSICAL SECURITY [facility] 10/12/23 Office Visit Azul Bolaños, PAC [facility] 08/23/23 Office Visit Mike Posada APRN, DIRECTOR OF PHYSICAL SECURITY [facility] 08/11/23 Office Visit Azul Bolaños, PAC [facility] 06/07/23 Office Visit Azul Bolaños, PAC [facility] 05/04/23 Office Visit Azul Bolaños, [facility] Showing recent visits within past 365 days and meeting all other requirements Future Appointments No visits were found meeting these conditions. Showing future appointments within next 90 days and meeting all other requirements documented in this encounter Plan of Treatment Upcoming Encounters Date Type Department Care Team (Latest Contact Info) Description 09/10/2025 9:40 AM COMPUTER TESTER Immunization [facility] - Family [facility] - [place] [address] [place] [address] 09/16/2025 9:30 AM COMPUTER TESTER [facility] [address] [place] [address] Mariela Ashley PAC [address] [place] [address] Discharge Disposition: Discharged to home or Selfcare 09/23/2025 9:20 AM COMPUTER TESTER Office Visit [facility] [address] [place] [address] Mariela Ashley, PAC [address] [place] [address] Discharge Disposition: Discharged to home or Selfcare 09/23/2025 10:30 AM COMPUTER TESTER [facility] [address] [place] [address] Miranda Jerez APRN, DIRECTOR OF PHYSICAL SECURITY [address] [address] 10/09/2025 8:00 AM COMPUTER TESTER [facility] [address] [place] [address] See Monreal MD [address] [address] 10/09/2025 8:00 AM COMPUTER TESTER - 10/09/2025 8:30 AM COMPUTER TESTER [facility] [address] [place] [address] See Monreal MD [address] [address] EGD 01/02/2026 2:20 PM CDT Office Visit [facility] Medical [facility] - Family Medicine [facility] [address] [place] [address] Azul Bolaños, PAC [address] [place] [address] Scheduled Procedures Name Priority Associated Diagnoses Date/Ti me EGD GASTRIC REFLUX 10/09/2025 8:00 AM COMPUTER TESTER documented as of this encounter Visit Diagnoses Diagnosis Mild persistent reactive airway disease without complication documented in this encounter Additional Health Concerns Infection Onset Date Last Indicated Resolved Time C. difficile Rule-Out 10/19/2024 10/19/20242024 12:16 AM COMPUTER TESTER COVID - 19 05/13/2025 05/13/2025 05/13/2025 11:5 1 AM CDT Respiratory Rule-Out 05/13/2025 05/13/2025 025 12:33 PM CDT Respiratory Rule-Out 08/27/2025 08/27/2025 025 3:34 PM COMPUTER TESTER Assessment Noted Time PHQ-9 Depression Total Score: 0 01/27/20 7:54 AM CDT documented as of this encounter Care Teams Gristmiller Relationship Specialty Start Date End Date Azul Bolaños PAC [address] [place] [address] PCP - General Physician Car Hostler 11/25/16 Luly Washington APRN, DIRECTOR OF PHYSICAL SECURITY [address] [place] [address] Obstetrics & Gynecology 02/09/21 Jensen Reddy MD [address] [place] [address] Consulting Physician Obstetrics & Gynecology 07/05/22 Belinda Short APRN, DIRECTOR OF PHYSICAL SECURITY [address] [place] [address] Nurse Practitioner Advanced Practice Nurse 09/02/23 Andrew Ramos MD [address] [place] [address] Consulting Physician Medical Oncology 06/20/23 Brain May MD #[address] [address] Consulting Physician General Surgery 08/31/24 Pilo Gutiérrez MD [address] [place] [address] Consulting Physician General Surgery 05/28/25 documented as of this encounter
--- OUTSIDE RECORDS SUMMARY | 2025-09-03 06:02 | XMS_ITS | Encounter Summary ---
Author Organization [facility] Address [address] [place] [address] Phone Care Team Providers Care Samples And Repairs Preparer Name Role Phone Azul Bolaños Primary Care Provider + Luly Washington APRN, TUBE AND MANIFOLD BUILDER Unavailable Jensen Reddy MD Unavailable [phone] Belinda Short APRN, TUBE AND MANIFOLD BUILDER Unavailable Andrew Ramos MD Unavailable Brain May MD Unavailable Pilo Gutiérrez MD Unavailable Reason for Visit * Reason Comments Medication Refill Encounter Details Date Type Department Care Team (Late st Contact Info) Description 10/17/2023 [facility] [address] [place] [address] Andrew Ramos MD [address] [place] [address] Medication Refill Social History Tobacco Use Types Packs/Day Years Used Date Smoking Tobacco: Former Cigarettes 0.3 15 0 09/2006 - 09/2021 Smokeless Tobacco: Never Alcohol Use Standard Drinks/Week Comments Yes 0 (1 standard drink = 0.6 oz pur e alcohol) OCCASSIONALLY [facility] Utilities Answer Date Recorded In [...] often do you attend chur ch or sikhism services? 1 to 4 times per year 10/11/2023 Do you belong to any clubs o r organizations such as anglican groups, unions, fraternal or athletic groups, or [...] Total Score - Questions 1-9 0 05/27 [facility] [place] of Occupat ional Health - Occupational Stress [...] encounter Miscellaneous Notes * Telephone Encounter - Amy Mclaughlin RN - 10/17/2023 1:11 PM MATERIALS MANAGEMENT SUPERVISOR Folic acid refilled 28 days x 5 refills. Per note from office visit 05/2023 pt is to continue to take. Next follow up is scheduled for 05/2024 RIALS MANAGEMENT SUPERVISOR documented in this encounter Plan of Treatment Upcoming Encounters Date Type Department Care Team (Latest Contact Info) Description 09/10/2025 9:40 AM MATERIALS MANAGEMENT SUPERVISOR Immunization [facility] - Family Medicine - [place] [address] [place] [address] 09/16/2025 9:30 AM MATERIALS MANAGEMENT SUPERVISOR [facility] [address] [place] [address] Mariela Ashley Mitzi, PAC [address] [place] [address] Discharge Disposition: Discharged to home or Selfcare 09/23/2025 9:20 AM MATERIALS MANAGEMENT SUPERVISOR [facility] [address] [place] [address] Marieal Ashley Mitzi, PAC [address] [place] [address] Discharge Disposition: Discharged to home or Selfcare 09/23/2025 10:30 AM MATERIALS MANAGEMENT SUPERVISOR Office Visit [facility] - Pulmonology & Sleep Medicine [facility] [address] [place] [address] Miranda Jerez APRN, TUBE AND MANIFOLD BUILDER #[address] [address] 10/09/2025 8:00 AM MATERIALS MANAGEMENT SUPERVISOR [facility] [address] [place] [address] See Monreal MD [address] [address] 10/09/2025 8:00 AM MATERIALS MANAGEMENT SUPERVISOR - 10/09/2025 8:30 AM MATERIALS MANAGEMENT SUPERVISOR [facility] [address] [place] [address] See Monreal MD 2 [facility] [address] [address] EGD 01/02/2026 2:20 PM CDT Office Visit [facility] [address] [place] [address] Azul Bolaños PAC [address] [place] [address] Scheduled Procedures Name Priority Associated Diagnoses Date/Ti me EGD GASTRIC REFLUX 10/09/2025 8:00 AM MATERIALS MANAGEMENT SUPERVISOR documented as of this encounter Visit Diagnoses Not on filedocumented in this encounter Additional Health Concerns Infection Onset Date Last Indicated Resolved Time C. difficile Rule-Out 10/19/2024 10/19/20242024 12:16 AM MATERIALS MANAGEMENT SUPERVISOR COVID - 19 05/13/2025 05/13/2025 05/13/2025 11:5 1 AM CDT Respiratory Rule-Out 05/13/2025 05/13/2025 025 12:33 PM CDT Respiratory Rule-Out 08/27/2025 08/27/2025 025 3:34 PM MATERIALS MANAGEMENT SUPERVISOR Assessment Noted Time PHQ-9 Depression Total Score: 0 06/07/20 23 10:26 AM CDT documented as of this encounter Care Teams Samples And Repairs Preparer Relationship Specialty Start Date End Date Azul Bolaños PAC [address] [place] [address] PCP - General Physician Pressure Dispatcher 11/25/16 Luly Washington, HOUSEKEEPING LEAD, TUBE AND MANIFOLD BUILDER [address] [place] [address] Obstetrics & Gynecology 02/09/21 Jensen Reddy MD [address] [place] [address] Consulting Physician Obstetrics & Gynecology 07/05/22 Belinda Short APRN, TUBE AND MANIFOLD BUILDER [address] [place] [address] Nurse Practitioner Advanced Practice Nurse 09/02/23 Andrew Ramos MD [address] [place] [address] Consulting Physician Medical Oncology 06/20/23 Brain May MD #[address] [phone] Consulting Physician General Surgery 08/31/24 Pilo Gutiérrez MD 2 [facility] [address] [place] [address] Consulting Physician General Surgery 05/28/25 documented as of this encounter
[2025-09-03 06:24] VITALS: BP 139/63; PULSE 70; RESP 23; TEMP 36.6; O2SAT 100
--- NOTE | 2025-09-03 06:44 | ED_ITS ---
HPI - General Adult General Chief complaint: Headache Stated complaint: Headache / cp / flank pain Time Seen by Provider: 09/03/25 06:41 History of Present Illness HPI narrative: 40-year-old female presents emergency department with 5 days of gradual onset diffuse headache with associated photophobia. Patient states she has a history of similar headaches. This 1 is different he has also had some associated chest pain left-sided nonradiating. No history of structural heart disease coronary artery disease. She denies any fevers chills no abdominal pain she endorses some increased urinary frequency but no abdominal pain no flank pain. She denies any sick contacts. She denies any lateralizing weakness or paresthesias. Denies any loss of vision. Related Data Allergies Allergy/AdvReac Type Severity Reaction Status Date / Time aripiprazole (From [facility]) AdvReac Mild Headache Verified 09/03/25 06:01 Dosulepi AdvReac Mild Hallucinati Uncoded 09/03/25 06:01 ng Review of Systems 2 Constitutional: Constitutional: Reports as per HPI and Reports no additional constitutional complaints Comments: Twelve point review of systems negative otherwise documented HPI Exam 2 Narrative: APPEARANCE: Well appearing, no pain in distress, well-nourished. Head normocephalic atraumtaic. EYES: PERRLA/EOMI, conjunctivae very clear. NOSE: Normal no drainage THROAT: Pharynx clear, no exudate. NECK: Supple. No adenopathy, no masses. RESPIRATORY: Airway patent, repsirations nonlabored. Clear to auscultation bilaterally, no rales, rhonchi, wheezing. CARDIOVASCULAR: Regular rate and rhythm without murmurs rubs or gallops. ABDOMINAL: Soft, nontender, nondistended, no hepatosplenomegally MUSCULOSKELETAl: Moves all extremities. Strenght/ROM intact, No edema, No calf tenderness. NEURO: Alert. Cranial nerves II through XII intact. Good gait. Good coordination SKIN:: Warm, dry. Normal Color PSYCHIATRIC: Normal affect/mood, normal interaction with parents. Course Vital Signs Vital signs: Vital Signs Temperature 36.6 C 09/03/25 06:24 Pulse Rate 70 09/03/25 06:24 Respiratory Rate 23 H 09/03/25 06:24 Blood Pressure 139/63 09/03/25 06:24 Pulse Oximetry 100 09/03/25 06:24 Oxygen Delivery Room Air 09/03/25 06:24 Temperature 36.6 C 09/03/25 06:24 Pulse Rate 70 09/03/25 06:24 Respiratory Rate 23 H 09/03/25 06:24 Blood Pressure 139/63 09/03/25 06:24 Pulse Oximetry 100 09/03/25 06:24 Oxygen Delivery Room Air 09/03/25 06:24 [facility] Narrative Medical decision making narrative: Differential below, we will obtain cardiac workup CT head, cardiac workup EKG multimodal pain control plan for evaluation after workup and treatment. Results for evaluation Patient feels much improved. ED workup reviewed within acceptable limits. Chest x-ray without infiltrate CT head without mass or brain bleed. UA without evidence of infection. Given all that I think she is appropriate for close outpatient follow-up direct status primary care doctor return sooner for any new or concerning symptoms. Otherwise all questions answered discharged stable condition Differential Diagnosis Differential Diagnosis: Differential diagnosis is viral syndrome verses less likely space-occupying mass or brain bleed versus migrainous headache. Has released her chest pain I suspect this is also musculoskeletal versus pleurisy versus less likely an atypical presentation of ACS or peripheral pneumonia pneumothorax. Medical Records I have reviewed the following patient records and this information was taken into consideration when formulating the assessment and plan.: previous labs and previous ER visits Lab Data [facility] Lab Attestation statement: I personally reviewed the patient's lab results. 09/03/25 07:35 09/03/25 07:35 Labs: Lab Results 09/03/25 09/03/25 09/03/25 Range/Units 07:35 09:27 09:28 WBC 8.6 (4.5-10.0) K/mm3 RBC 4.00 L (4.2-5.4) M/mm3 Hgb 10.6 L (12.0-15.0) g/dL Hct 29.5 L (37.0-47.0) % MCV 73.8 L (80-100) fl MCH 26.5 (26-34) pg MCHC 35.9 (32-36) g/dl RDW 16.9 H (11.5-14.5) % Plt Count 185 (150-375) k/mm3 MPV 10.2 (7.4-10.4) fl Immature Gran % (Auto) 0.3 (0-0.5) % Neut % (Auto) 64.3 (45.5-73.1) % Lymph % (Auto) 27.2 (18.3-44.2) % Kleberg % (Auto) 7.4 (2.6-8.5) % Eos % (Auto) 0.3 (0-4.4) % Baso % (Auto) 0.5 (0.2-1.2) % Lymph # (Auto) 2.34 (0.9-3.2) K/mm3 Kleberg # (Auto) 0.6 (0.1-0.6) K/mm3 Eos # (Auto) 0.0 (0-0.3) K/mm3 Baso # (Auto) 0.0 (0.0-0.1) K/mm3 Abs Immat Gran (auto) 0.03 (0.00-0.031) K/mm3 Absolute Neuts (auto) 5.5 (1.3-6.7) K/mm3 Absolute Nucleated RBC 0.020 H (0.0-0.012) K/mm3 Band Neutrophils % Not Reportable Nucleated RBC % 0.2 (0.0-0.2) % Platelet Estimate Adequate (Adequate) % Immature Plt Fraction 5.2 (0.9-11.2) % Polychromasia 1+ Hypochromasia 1+ Anisocytosis 1+ Target Cells 2+ Ovalocytes 1+ Stomatocytes Occasional Schistocytes None seen Sodium 138 (137-145) mmol/L Potassium 3.7 (3.4-5.0) mmol/L Chloride 106 (98-107) mmol/L Carbon Dioxide 28 (22-30) mmol/L Anion Gap 4 (4-12) mmol/L BUN 9 (7-17) mg/dL Creatinine 0.80 (0.7-1.0) mg/dL Estim Creat Clear Calc 100 ml/min Estimated GFR > 60 (59 - ) Glucose 105 (65-110) mg/dL Calcium 8.8 (8.4-10.2) mg/dL Total Bilirubin 2.0 H (0.2-1.3) mg/dL AST 30 (14-36) U/L ALT 23 (6-35) U/L Alkaline Phosphatase 101 (38-126) U/L Troponin I 0.025 (0.000-0.034) ng/mL NT-Pro-B Natriuret Pep 95 (19.9-100) pg/mL Total Protein 8.7 H (6.3-8.2) g/dL Albumin 4.4 (3.5-5.1) g/dL Urine Color Yellow (Yellow) Urine Appearance Clear (Clear) Urine pH 6.0 (5.0-9.0) Ur Specific [place] 1.018 (1.001-1.035) Urine Protein Negative (Negative) mg/dL Urine Glucose (UA) Negative (Negative) mg/dL Urine Ketones Negative (Negative) mg/dL Ur Blood (Man) Negative (Negative) Urine Nitrate Negative (Negative) Urine Bilirubin Negative (Negative) Urine Urobilinogen 1.0 (<2.0) mg/dL Leukocyte Esterase Rfl Negative (Negative) DARLYN/UL POC Urine HCG, Qual Negative (Negative) Imaging Data Attestation: I personally reviewed and interpreted this imaging study as follows: My impression: Head CT shows no evidence of mass or bleed. Overall impression normal and CT Radiologist's impression: ITS Impressions Chest X-Ray 09/03/25 07:55 IMPRESSION: 1. No acute cardiopulmonary findings. Head CT 09/03/25 08:04 IMPRESSION: 1. No acute intracranial findings. ECG Data EKG #1: Attestation: I personally reviewed and interpreted this ECG as follows: Interpretation: Twelve lead EKG shows normal sinus rhythm at 61 beats per minute. LVH by voltage criteria. Otherwise normal axis, normal intervals no evidence of ST-T segment elevation or depression. Overall impression abnormal EKG. Discharge Plan Discharge Clinical Impression: Headache, Chest pain in adult Patient Disposition: Home Condition: Stable Instructions: Chest Pain (DC), Acute Headache (ED) Patient Language: [place] African Prescriptions: No Action prednisone 20 mg tablet 40 mg PO DAILY 5 Days Qty: 10 0RF Follow-up/Referrals: Miky,JATINDER Kerns [Primary Care Provider, Unknown] Stand Alone Forms: Work/School Release IP Time of Disposition: 09:53
--- NOTE | 2025-09-03 07:12 | ECG_ITS ---
Test Date: 2025-09-03 07:25:16 Measurements Intervals Emery Rate: 61 P: -9 TX: 200 QRS: 3 QRSD: 83 T: 16 QT: 429 QTc: 434 Interpretive Statements SINUS RHYTHM VOLTAGE CRITERIA FOR LVH MINIMAL Q WAVES- HIGH LATERAL LEADS BASELINE ARTIFACT- I, II, III, V5 BORDERLINE ECG No previous ECG available for comparison Electronically Signed On 09-03-2025 07:58:51 CVICU NURSE by Addi Valenzuela D.O.
--- NOTE | 2025-09-03 07:14 | PC.NURSE ---
Took patient report at 0710
[2025-09-03 07:47] LABS: Hematocrit 29.5 % (37.0-47.0); Hemoglobin 10.6 g/dL (12.0-15.0); Immature Granulocyte Percent A 0.3 % (0-0.5); Immature Platelet Fraction Pct 5.2 % (0.9-11.2); Lymphocytes Absolute Auto 2.34 K/mm3 (0.9-3.2); Mean Corpuscular HGB Conc 35.9 g/dl (32-36); Mean Corpuscular Hemoglobin 26.5 pg (26-34); Mean Corpuscular Volume 73.8 fl (80-100); Nucleated Red Blood Cells Absolute Auto 0.020 K/mm3 (0.0-0.012); Nucleated Red Blood Cells Perc 0.2 % (0.0-0.2); Platelet Count Result 185 k/mm3 (150-375); Red Blood Count 4.00 M/mm3 (4.2-5.4); White Blood Count 8.6 K/mm3 (4.5-10.0)
[2025-09-03] MEDS: PROCHLORPERAZINE MALEATE 5 MG TABLET 10 MG PO (07:57)
[2025-09-03] MEDS: diphenhydrAMINE HCl CAP 25 MG CAPSULE PO (07:58)
[2025-09-03] MEDS: KETOROLAC 30 MG/ML VIAL (*BKC) IM (07:58)
[2025-09-03 08:06] LABS: Alanine Aminotransferase 23 U/L (6-35); Albumin Level 4.4 g/dL (3.5-5.1); Alkaline Phosphatase 101 U/L (38-126); Anion Gap 4 mmol/L (4-12); Aspartate Amino Transferase 30 U/L (14-36); Bilirubin,Total 2.0 mg/dL (0.2-1.3); Blood Urea Nitrogen 9 mg/dL (7-17); Calcium 8.8 mg/dL (8.4-10.2); Carbon Dioxide 28 mmol/L (22-30); Chloride 106 mmol/L (98-107); Estimated CRCL calculation 100 ml/min; Estimated Glomerular Filt Rate > 60; Glucose 105 mg/dL (65-110); Potassium 3.7 mmol/L (3.4-5.0); Sodium 138 mmol/L (137-145); Total Protein 8.7 g/dL (6.3-8.2)
[2025-09-03 08:08] LABS: Anisocytosis 1+; Hypochromasia 1+; Ovalocytes 1+; Polychromasia 1+; Schistocytes None Seen; Stomatocytes Occasional; Target Cells 2+
[2025-09-03 08:17] LABS: NT Pro B Type Natriuretic Pept 95 pg/mL (19.9-100); Troponin I 0.025 ng/mL (0.000-0.034)
[2025-09-03 09:29] LABS: BEDSIDEPREGUCG Negative (Negative)
[2025-09-03 09:42] LABS: Add Urine Microscopic? NO; Appearance Urine Clear (Clear); Glucose Urine UA Negative (Negative); Leukocyte Esterase Ur Negative LEU/UL (Negative); Nitrate Urine Negative (Negative); Specific Grav Ur 1.018 (1.001-1.035)
[2025-09-03 10:26] VITALS: BP 134/68; PULSE 74; RESP 17; O2SAT 100
== END 2025-09-03 10:47 | disposition home or self-care (01) ==
PROVIDERS: Emergency Provider Emergency Medicine; PCP Physician Assistant
DX: R51.9 Headache, unspecified (principal); R07.9 Chest pain, unspecified; R94.31 Abnormal electrocardiogram [ECG] [EKG]
CPT/HCPCS: 36415; 70450; 71046; 80053; 81003; 81025; 83880; 84484; 85025; 85055; 93005; 96372; 99284; A9270; J1885